=== PATIENT | male | born 1950 | race Caucasian/White ===

== ENCOUNTER → 2020-08-24 09:02 | Outpatient (CLI) | payer MEDICARE, SELFPAY ==
--- NOTE | ~2020-08-24 | CT_ITS ---
EXAMINATION: CT lumbar spine wo con, CT thoracic spine wo con EXAM DATE: 08/24/2020 09:22 (accession [id number]), 08/24/2020 09:23 (accession [id number]) INDICATION: Thoracic back pain. Low back pain. History lumbar surgery 5 times. Bladder and kidney can cer. TECHNIQUE: Spiral CT thoracic spine without contrast. Axial, coronal and sagittal images of the thora cic spine were reviewed. Spiral CT of the lumbar spine was performed without contrast. Axial, sherman nal and sagittal images lumbar spine were reviewed. The dose-length product (DLP) for this examinati on was 944.73 (accession [id number]), 1080.33 (accession [id number]) mGy-cm. The exposure w as tailored according to patient size (auto mA exposure control), and iterative reconstruction (ASIR) was used as additional dose reduction technique. There is no prior study for comparison. FINDINGS: There are no osteoblastic or osteolytic lesions identified. THORACIC SPINE: There are no bony erosions identified. Mild mid and lower thoracic disc disease. Sli ght loss of some mid and lower thoracic vertebral body heights. There are no acute fractures identifi ed. The vertebral bodies are aligned in the AP dimension. No evidence of thoracic central canal steno sis. Mild neural foraminal stenosis at several mid thoracic levels. Incidental small gastroesophageal hiatal hernia with larger amount of intra-abdominal fat also pushing through the hiatus. Evidence of mild interstitial lung disease. LUMBAR SPINE: There is posterior fusion L3-4, with partially fused vertebral bodies and laminectomies . Hardware intact and no lucency surrounding the screws. There is mild mid lumbar levoscoliosis. Mode rate to severe disc disease L2-3 and moderate at L4-5. There is 3 mm anterolisthesis L2 on L3. No spo ndylolysis. Paraspinal soft tissue is unremarkable. Sacrum, sacroiliac joints, sacral arcuate lines are intact. Mild sigmoid diverticulosis. Level by level evaluation: T12-L1: Disc does not extend beyond the endplate margin. Facet arthropathy: Mild. Neural foraminal stenosis: No stenosis. Central canal stenosis: No stenosis. L1-L2: There is a mild diffuse disc bulge. Facet arthropathy: Moderate. Neural foraminal stenosis: No stenosis. Central canal stenosis: No stenosis. L2-L3: There is a moderate diffuse disc bulge. Facet arthropathy: Moderate to severe. Neural foraminal stenosis: Moderate right, mild left. Central canal stenosis: Moderate. L3-L4: This level is fused. Facet arthropathy: Poorly visualized, probably fused. Neural foraminal stenosis: Mild to moderate right, mild left. Central canal stenosis: Posterior decompression. L4-L5: There is a moderate diffuse disc bulge. Facet arthropathy: Moderate. Neural foraminal stenosis: Moderate left, mild to moderate right. Central canal stenosis: Posterior decompression. L5-S1: There is a mild diffuse disc bulge. Facet arthropathy: Mild to moderate. Neural foraminal stenosis: No stenosis. Central canal stenosis: No stenosis. IMPRESSION: 1. L2-3 grade 1 anterolisthesis, advanced arthropathy, moderate central canal stenosis. 2. Mild thoracic spondylosis without significant stenosis. 3. Surgical changes L3-4. Reviewed, dictated and finalized at location A. IMPRESSION: 1. L2-3 grade 1 anterolisthesis, advanced arthropathy, moderate central canal stenosis. 2. Mild thoracic spondylosis without significant stenosis. 3. Surgical changes L3-4.
== END ==
PROVIDERS: Visit Provider Nurse Practitioner Adult Health
DX: M47.894 Other spondylosis, thoracic region (principal)
CPT/HCPCS: 72128; 72131

== ENCOUNTER 2022-05-10 18:35 | Inpatient (IN) | payer MEDICARE, SELFPAY ==
--- NOTE | ~2022-05-10 | XR_ITS ---
EXAMINATION: XR chest 1V portable Exam Date/Time: 05/10/2022 18:58 ASSEMBLED WOOD PRODUCTS REPAIRER HISTORY: cough, SOB, FEVER Comparison: None available. RESULT: Lines, tubes, and devices: Spinal catheters projecting over the midline thoracic spine. Lungs and pleura: Mid and lower lung reticulonodular opacities. Cardiomediastinal silhouette: Stable. Other: No acute osseous or upper abdominal finding. IMPRESSION: Pulmonary opacities may represent bronchiolitis, as can be seen with atypical infection, asthma, aspi ration, and small airways disease. Reviewed, dictated and finalized at location K. MBLED WOOD PRODUCTS REPAIRER IMPRESSION: Pulmonary opacities may represent bronchiolitis, as can be seen with atypical i nfection, asthma, aspiration, and small airways disease.
--- NOTE | ~2022-05-10 | CT_ITS ---
EXAMINATION: CT chest abdomen pelvis wo con DATE: 05/10/2022 19:59 INDICATION: chest pain radiating to back, abd pain, RLQ pain . TECHNIQUE: Computed tomography (CT) of the chest, abdomen, and pelvis was performed without intraveno us contrast. Automated exposure control and iterative reconstruction technique were employed. The dos e-length product was 2712.32 mGy-cm. COMPARISON: CT thoracic and lumbar spine 08/24/2020 FINDINGS: Thoracic aorta: No significant dilation. Moderate arch calcification. Lung parenchyma and airways: Emphysematous and senescent changes. Left lower lobe hamartoma. 4 mm rig ht middle lobe pulmonary nodule. Thoracic inlet, axillae and chest wall: Bilateral gynecomastia No thyroid mass. No axillary lymphaden opathy. Mediastinum: No mass or lymphadenopathy. Dilated central pulmonary arteries as can be seen with pulmo nary arterial hypertension. Small hiatal hernia and herniation of mesenteric fat at the diaphragmatic hiatus. Heart and pericardium: Normal heart size. No pericardial effusion. Coronary artery calcifications: Moderate. Pleura: No effusion or mass. Thoracic bones: No acute osseous finding in the chest. ABDOMEN/PELVIS: Liver: The right lobe is small, possibly related to postsurgical change. Biliary/Gallbladder: Gallbladder is minimally inflamed, likely reactive to the adjacent renal process . No bile duct dilation. Pancreas: Mild atrophy. Spleen: Normal. Adrenals: Left adrenal gland is surgically absent. Kidneys: Left kidney absent. Moderate right perinephric and periureteral stranding. Moderate right hy dronephrosis. Right ileal conduit. GI tract: No small or large bowel dilation. Right lower quadrant ileostomy. Right lower quadrant unco mplicated small bowel anastomosis Normal appendix. Mesentery/Peritoneum: No ascites, mass, or free air. Retroperitoneum: No mass. Atherosclerotic abdominal aortic and/or arterial calcifications. Pelvis: Urinary bladder and prostate are surgically absent. Soft Tissues: Small fat-containing bilateral inguinal hernias. Right lower back stimulator with leads enter the canal at T11-12 and terminating in the midthoracic canal. Abdominopelvic bones: No acute osseous finding in the abdomen/pelvis. Uncomplicated L3-4 posterior f usion IMPRESSION: 1. Pulmonary opacities in the prior radiograph related to senescent and emphysematous change. 2. Moderate right perinephric and periureteral stranding with moderate hydronephrosis, may reflect an astomotic stricture or ascending infection at the ileal conduit. 3. 4 mm right lower lobe pulmonary nodule, no follow-up recommended patient is at high risk in which case consider optional low-dose CT of the chest in 12 months. Reviewed, dictated and finalized at location K. ICATOR FOAM RUBBER IMPRESSION: 1. Pulmonary opacities in the prior radiograph related to senescent and emphyse matous change. 2. Moderate right perinephric and periureteral stranding with moderate hydronep hrosis, may reflect anastomotic stricture or ascending infection at the ileal c onduit. 3. 4 mm right lower lobe pulmonary nodule, no follow-up recommended patient is at high risk in which case consider optional low-dose CT of the chest in 12 mon ths.
--- NOTE | ~2022-05-10 | US_ITS ---
EXAMINATION: US renal BI DATE: 05/13/2022 13:55 INDICATION: Acute renal insufficiency TECHNIQUE: Multiple ultrasound grayscale images of the kidneys were obtained. COMPARISON: CT dated 05/10/2022 FINDINGS: The right kidney measures 12.6 x 7.0 x 5.7 cm. Status post left nephrectomy with shadowing bowel at t he left renal fossa. The right kidney demonstrates normal echogenicity. Unchanged mild right hydronep hrosis. No stones identified. Status post cystectomy with additional shadowing bowel expected region of the bladder. Diffuse hepatic steatosis. IMPRESSION: 1. Persistent mild right hydronephrosis. ON 2. Status post left nephrectomy and cystectomy. Reviewed, dictated and finalized at location A. NG MARKER
--- NOTE | ~2022-05-10 | XR_ITS ---
XR retrograde pyelogram RT DATE: 05/11/2022 14:08 INDICATION: Right lower quadrant abdominal pain TECHNIQUE: Multiple spot C-arm images were obtained during injection into ileal conduit 68.8 seconds fluoroscopy time 2.42 mGym2 COMPARISON: 05/10/2022 CT chest abdomen pelvis FINDINGS: Radiopaque contrast material images injected into the ileal conduit. No retrograde filling of the right ureter or right renal collecting system is noted. Status post posterior surgical spine fusion and laminectomy at L3-4. IMPRESSION: Ileal conduit Reviewed, dictated and finalized at Location A. Reviewed, dictated and finalized at location A. OR SCRUM MASTER IMPRESSION: Ileal conduit
--- NOTE | 2022-05-10 18:37 | ECG_ITS ---
Measurements Intervals [place] Rate: 132 P: -66 NM: 121 QRS: -54 QRSD: 149 T: 87 QT: 359 QTc: 532 Interpretive Statements SINUS OR ECTOPIC ATRIAL TACHYCARDIA LEFT AXIS DEVIATION LEFT BUNDLE BRANCH BLOCK ABNORMAL ECG NO PREVIOUS ECG AVAILABLE FOR COMPARISON Electronically Signed On 05-10-2022 20:10:32 CNC LASER OPERATOR by Guillermo Viramontes D.O.
[2022-05-10 18:44] VITALS: BP 132/100; PULSE 131; RESP 18; TEMP 38.8; O2SAT 90
[2022-05-10 18:49] VITALS: O2SAT 92
[2022-05-10 18:51] VITALS: O2SAT 94
[2022-05-10 19:14] LABS: Basophils Absolute Auto 0.1 K/mm3 (0.0-0.1); Basophils Percent Auto 0.3 % (0.2-1.2); Eosinophils Percent Auto 0.2 % (0-4.4); Hematocrit 39.1 % (42.0-52.0); Hemoglobin 13.4 g/dL (14.0-18.0); Immature Granulocyte Absolute 0.19 K/mm3 (0.00-0.031); Lymphocytes Absolute Auto 0.51 K/mm3 (0.9-3.2); Lymphocytes Percent Auto 2.6 % (18.3-44.2); Mean Corpuscular HGB Conc 34.3 g/dl (32-36); Mean Corpuscular Hemoglobin 30.6 pg (26-34); Mean Corpuscular Volume 89.3 fl (80-100); Mean Platelet Volume 10.1 fl (7.4-10.4); Monocytes Absolute Auto 0.6 K/mm3 (0.1-0.6); Monocytes Percent Auto 2.9 % (2.6-8.5); Neutrophils Absolute Auto 18.5 K/mm3 (1.3-6.7); Platelet Count Result 244 k/mm3 (150-375); Red Blood Count 4.38 M/mm3 (4.6-6.20); Red Cell Distribution Width 14.9 % (11.5-14.5); White Blood Count 19.9 K/mm3 (4.5-10.0)
--- NOTE | 2022-05-10 19:19 | ED.URI ---
HPI - URI/Sore Throat General Chief Complaint: Fever Stated Complaint: fever, sob, cough Time Seen by Provider: 05/10/22 19:08 History of Present Illness HPI Narrative: 2 d of cough, fevers, nausea, generalized fatigue; today started having burning sensation in chest and more shortness of breath so came in. Related Data Allergies Allergy/AdvReac Type Severity Reaction Status Date / Time Penicillins Allergy Mild Unknown Unverified 05/10/22 21:02 ERYTHROMYCINS Allergy Mild Unknown Uncoded 05/10/22 21:02 Review of Systems Review of Systems: CONST: Fever HEENT: congestion C/V: Chest burning RESP: Cough GI: Nausea, vomiting : No dysuria. M/S: Back pain SKIN: No rash. NEURO: [No focal numbness or weakness] PSYCH: [No depression] [facility] Past Medical History Medical History (Updated 05/10/22 @ 23:01 by Radha Ni MD) Bladder cancer Renal cancer Surgical History Surgical History (Updated 05/10/22 @ 20:38 by Radha Ni MD) History of bladder surgery History of nephrectomy Exam Narrative: EXAMINATION OF ORGAN SYSTEMS/BODY AREAS: Constitutional: Vital signs per nursing GENERAL: Appears tired and uncomfortable HEAD: Normal with no signs of head trauma. EYES: EOMI, conjunctiva normal ENT: Hearing grossly intact LUNGS: Nonlabored breathing. HEART: Tachycardic ABD: [Soft], [mildly tender to palpation diffusely] BACK: Right CVA tenderness EXT: Normal range of motion SKIN: [No rashes or lesions.] NEURO: [Alert and oriented x 3. No gross focal sensory or strength deficits.] PSYCH: Normal affect Course Vital Signs Vital signs: Vital Signs Temperature 102 F H 05/10/22 18:44 Pulse Rate 131 H 05/10/22 18:44 Respiratory Rate 18 05/10/22 18:44 Blood Pressure 132/100 H 05/10/22 18:44 Pulse Oximetry 90 05/10/22 18:44 Oxygen Delivery Room Air 05/10/22 18:44 Temperature 102 F H 05/10/22 18:44 Pulse Rate 131 H 05/10/22 18:44 Respiratory Rate 18 05/10/22 18:44 Blood Pressure 132/100 H 05/10/22 18:44 Pulse Oximetry 94 05/10/22 18:51 Oxygen Delivery Nasal Cannula 05/10/22 18:49 Oxygen Flow Rate 2 05/10/22 18:49 MDM - URI/Sore Throat MDM Narrative Medical decision making narrative: EMR reviewed however no prior records here; history obtained from patient and from his daughter at bedside. 71-year-old male presenting with 2 days of URI symptoms, today started have some chest discomfort and shortness of breath, and some right abd/back discomfort. No history of heart failure, does have history of kidney cancer now has 1 kidney. Vitals are notable for tachycardia, fever, hypoxia, on exam he does appear uncomfortable, with right CVA tenderness. I suspect possible URI versus UTI/pyelonephritis, versus other intra-abdominal etiology, pneumonia, ACS, less likely PE given the consolation of symptoms and no DVT symptoms. Infectious and cardiac work-up initiated, patient started on antibiotics, labs are notable for white count of 20, creatinine of 3.6 which per collateral his prior creatinine has been in the twos. UA with WBCs, bacteria, consistent with UTI. Chest x-ray reviewed by myself and my interpretation does show some patchy opacities bilaterally consistent with likely viral illness. EKG initially showing tachycardia rate 132, with left bundle branch block and left axis deviation, QTC prolonged at 532, however we have no prior EKGs here for comparison. Given the high white count, I did obtain a CT of his chest, abdomen, pelvis which showed findings consistent with pyelonephritis. After Tylenol and fluids, zofran and famotidine, he is now resting very comfortably, feeling much better, chest pain resolved, repeat EKG shows improvement to now sinus tachycardia. Discussed with the patient that we are can admit him given his new oxygen requirement, he is agreeable to this plan, case discussed with hospitalist Total crit care time 40 minutes. Lab Data 05/10/22 18:59
[2022-05-10 19:26] LABS: INR 1.2; Prothrombin Time 14.8 Seconds (11.1-14.7)
[2022-05-10 19:27] LABS: Partial Thromboplastin Time 32.4 SECONDS (22.3-36.8)
[2022-05-10 19:34] LABS: Alanine Aminotransferase 21 U/L (6-50); Albumin Level 3.9 g/dL (3.5-5.1); Alkaline Phosphatase 91 U/L (38-126); Anion Gap 12 mmol/L (8-16); Aspartate Amino Transferase 26 U/L (17-59); Bilirubin,Total 0.7 mg/dL (0.2-1.3); Blood Urea Nitrogen 57 mg/dL (9-20); Calcium 6.5 mg/dL (8.4-10.2); Carbon Dioxide 23 mmol/L (22-30); Chloride 100 mmol/L (98-107); Estimated Glomerular Filt Rate 17; Glucose 138 mg/dL (65-110); Lipase 37 U/L (23-300); Potassium 3.5 mmol/L (3.4-5.0); Sodium 135 mmol/L (137-145)
[2022-05-10] MEDS: ONDANSETRON INJ 4 MG/2 ML VIAL IV PUSH (19:38)
[2022-05-10] MEDS: FAMOTIDINE 20 MG/2 ML VIAL IV PUSH (19:38)
[2022-05-10] MEDS: LACTATED RINGERS 1,000 ML 999 ML IV CONT (19:40)
[2022-05-10 19:45] LABS: Troponin I < 0.012 ng/mL (0.000-0.034)
[2022-05-10 19:46] LABS: Troponin I < 0.012 ng/mL (0.000-0.034)
[2022-05-10 19:53] LABS: Influenza A QL RT-PCR Negative (Negative); Influenza B QL RT-PCR Negative (Negative); SARS-CoV-2 RNA PCR Negative
--- NOTE | 2022-05-10 20:02 | PM.IMHP ---
H&P: HPI History of Present Illness Date/Time: 05/10/22 20:02 Chief Complaint: Fever Narrative: This is a 71-year-old male with past medical history significant for dyslipidemia, gout, hypertension, chronic pain, restless leg syndrome, depression, obesity, history of bladder cancer, history of renal cancer. Patient presents to the emergency room due to shortness of breath, fatigue, body aches and pains, fever, generalized weakness, poor appetite. Patient tested negative for influenza type A, influenza type B and COVID-19. A urinalysis was significant for numerous WBCs present. Patient was found to have a creatinine of 3.6, BUN 57 Review of Systems Review of Systems: Body aches and pains, poor appetite, shortness of breath. Constitutional: Constitutional: Denies chills, Denies fever(s), Reports malaise, Denies night sweats, Reports poor appetite and Reports weakness Eyes: Eyes: Denies change in vision ENT: Denies dysphagia, Denies vertigo, Denies dizziness and Denies odynophagia Cardiovascular: Cardiovascular: Denies chest pain, Denies leg edema, Denies lightheadedness and Denies radiating jaw, neck or arm pain Respiratory: Respiratory: Reports cough and Reports dyspnea Gastrointestinal: Gastrointestinal: Denies abdominal pain, Denies dyspepsia, Denies heartburn, Denies diarrhea, Denies nausea and Denies vomiting Genitourinary: Genitourinary: Denies dysuria Musculoskeletal: Musculoskeletal: Reports myalgias, Denies joint swelling and Reports muscle weakness Integumentary/Breasts: Skin/Breast: Denies rash Neurologic: Denies vertigo, Denies dizziness, Denies focal weakness and Denies Sensory deficit (Neuro) Psychiatric: Psychiatric: Reports no additional psychiatric complaints and Reports as per HPI Endocrine: Endocrine: Denies cold intolerance, Denies flushing, Denies heat intolerance, Denies polyphagia, Denies polydipsia and Denies palpitations Hematologic/Lymphatic: Hematologic/Lymphatic: Reports no additional hematologic/lymphatic complaints and Reports as per HPI Allergic/Immunologic: Allergic/Immunologic: Reports no additional allergic/immunologic complaints and Reports as per HPI PMFSH Past Medical History Medical History (Updated 05/11/22 @ 05:31 by Renaldo Cortes MD) Bladder cancer Renal cancer Surgical History Surgical History (Updated 05/10/22 @ 20:38 by Radha Ni MD) History of bladder surgery History of nephrectomy Social History Social History Smoking status: Former smoker Alcohol intake: never Substance use: never Lack of Transportation: No Lack of Food: Never True Current Housing: I Have Housing Concerned About Future Housing: No Difficulty Paying Gas/Electric Bills: No Difficulty Paying for Meds: No Currently Unemployed: No Education: High School Diploma/GED Difficulty w/ Childcare or Family Care: No Spiritual care concerns: No Meds Home Medications and Allergies Home Medications Medication Instructions Recorded Confirmed Type Cranberry Plus Vitamin C 450 mg PO DAILY 05/11/22 05/11/22 History allopurinol 100 mg tablet 200 mg PO DAILY 05/11/22 05/11/22 History amlodipine 5 mg tablet 5 mg PO DAILY 05/11/22 05/11/22 History aspirin 81 mg capsule 81 mg PO DAILY 05/11/22 05/11/22 History atorvastatin 10 mg tablet 10 mg PO DAILY 05/11/22 05/11/22 History calcitriol 0.25 mcg capsule 0.25 mcg PO DAILY 05/11/22 05/11/22 History calcium citrate 200 mg 1 tablet PO DAILY 05/11/22 05/11/22 History calcium-vitamin D3 6.25 mcg (250 unit) tablet (Citracal-D3 Petites) cholecalciferol (vitamin D3) 50 50 mcg PO DAILY 05/11/22 05/11/22 History mcg (2,000 unit) capsule (Vitamin D3) fexofenadine 180 mg tablet 180 mg PO DAILY 05/11/22 05/11/22 History oxycodone 5 mg tablet 5 mg PO BID 05/11/22 05/11/22 History oxycodone myristate 13.5 mg 13.5 mg PO BID 05/11/22 05/11/22 History capsule sprinkle extend release 12hr(DON'T CRUSH) (Xtampza ER)
[2022-05-10] MEDS: cefTRIAXone 2 GM in SODIUM CHLORIDE 0.9% IV 100 ML 200 ML IVPB (20:34)
[2022-05-10 20:51] LABS: Appearance Urine Cloudy (Clear); Bilirubin Urine Negative (Negative); Blood Urine 2+ (Negative); Color Urine Yellow (Yellow); Glucose Urine UA Negative (Negative); Ketones Urine Negative (Negative); Leukocyte Esterase Ur 3+ LEU/UL (Negative); Nitrate Urine Negative (Negative); Protein Urine 1+ mg/dL (Negative); Specific Grav Ur 1.015 (1.001-1.035); Urobilinogen Urine 0.2 mg/dL (<2.0); pH Urine 6.5 (5.0-9.0)
[2022-05-10] MEDS: DOXYCYCLINE 100 MG/NS 100 ML 100 MG/100 ML BAG IVPB (21:04)
--- NOTE | 2022-05-10 21:11 | ECG_ITS ---
Measurements Intervals [place] Rate: 83 P: 87 MT: 208 QRS: -29 QRSD: 160 T: 93 QT: 414 QTc: 487 Interpretive Statements SINUS RHYTHM LEFT BUNDLE BRANCH BLOCK BASELINE ARTIFACT- I, II, III, AVR, AVL, AVF, V1-V2, V5 ABNORMAL ECG COMPARED TO ECG 05/10/2022 18:42:00 SINUS RHYTHM NOW PRESENT Electronically Signed On 05-11-2022 6:43:29 PROJECT MANAGEMENT SPECIALIST by Guillermo Viramontes D.O.
[2022-05-10 21:14] LABS: Add Urine Microscopic? YES
[2022-05-10 21:17] LABS: Bacteria Urine 3+ /hpf; Mucus Urine Rare /lpf; WBC Clumps Urine Present /HPF; WBC Urine >75 /hpf
[2022-05-10 22:00] LABS: NT Pro B Type Natriuretic Pept 500 pg/mL (19.9-100)
[2022-05-10 22:40] VITALS: BP 106/52; PULSE 71; RESP 18; TEMP 35.9; O2SAT 97
--- NOTE | 2022-05-10 23:00 | ADMGEN ---
This patient, Colt Hoff, was admitted to 3 [facility] Surg Room 331-01. Patient/family oriented to hospital policies and general routines including ID bracelet, bed and alarms, visiting hours, pain management, procedures, bathroom and other care routines, personal items, smoking policy, room service/diet, and visiting hours. Information on how to activate the Rapid Response Team has been discussed. Patient/Family are encouraged to report perceived risks to care and to ask questions if they do not understand what they are told or what they should do.
[2022-05-11] VITALS (26 sets, daily range): BP systolic 107–131; BP diastolic 43–62; PULSE 54–83; RESP 12–20; TEMP 35.7–36.7; O2SAT 90–99; BMI 44.3
--- NOTE | 2022-05-11 | ECHO_ITS ---
Patient Info Name: Colt Hoff Age: 71 years : 1950 Gender: Male Ht: 72 in Wt: 326 lbs BSA: 2.81 m2 HR: 61 bpm BP: 121 / 60 mmHg Technical Quality: Fair Exam Date: 05/11/2022 8:42 AM Exam Location: [facility] Patient Status: Inpatient Admit Date: 05/10/2022 Staff Ordering Physician: Renaldo Cortes MD Line Crew Supervisor: Lan Funes, JENNIE, RT Attending Provider: Renaldo Cortes MD Referring Physician: Sophia MAK; Exam Type: CA echo dop color flow w con Study Info Indications I10 - Essential (primary) hypertension I50.9 - Heart failure, unspecified Complete two-dimensional, color flow and Doppler transthoracic echocardiogram is performed with contrast to opacify the left ventricle and to improve the deliniation of the left ventricle endocardial borders. Strain analysis performed. Summary 1. Left ventricular chamber dimension is normal. 2. Definity contrast administered improved wall motion interpretation. 3. Left ventricular systolic function is normal, estimated at 65-70%. 4. There is moderately increased left ventricular wall thickness. 5. The left ventricular diastolic function is abnormal. 6. E/e' 11 is mildly elevated. 7. Global longitudinal strain is normal at -18.2%. Left Ventricle Definity contrast administered improved wall motion interpretation. E/e' 11 is mildly elevated. Left ventricular chamber dimension is normal. Left ventricular systolic function is normal, estimated at 65-70%. There is moderately increased left ventricular wall thickness. The left ventricular diastolic function is abnormal. Global longitudinal strain is normal at -18.2%. Right Ventricle Right ventricular systolic function is normal and with normal TAPSE 2.8 cm. Right ventricular chamber dimension is normal. Left Atria Left atrial chamber dimension is normal. Right Atria Right atrial chamber dimension is normal. Aortic Valve The aortic valve is trileaflet. There is no aortic valve stenosis. There is no aortic valve regurgitation. Pulmonic Valve There is no pulmonic regurgitation. Mitral Valve There is no mitral valve stenosis. There is no mitral valve regurgitation. Tricuspid Valve There is no tricuspid valve regurgitation. Pericardium/Pleural There is no pericardial effusion. Inferior Vena Cava Normal inferior vena cava with >50% collapse upon inspiration consistent with normal right atrial pressure, 5 mmHg. Aorta The aortic root size at the sinus of Valsalva is normal. Left Ventricular Outflow Tract Name Value Normal LVOT 2D LVOT Diameter 2.31 cm LVOT Doppler LVOT Peak Gradient 5 mmHg LVOT Mean Gradient 3 mmHg LVOT VTI 26.77 cm LVOT VTI/AV VTI Ratio 0.83 LVOT Stroke Volume 112.08 ml LVOT CO 7.29 l/min LVOT CI 2.60 L/min/m2 Mitral Valve Name [place]
[2022-05-11 01:47] LABS: Creatine Kinase 154 U/L (55-170)
[2022-05-11 01:55] LABS: Troponin I 0.119 ng/mL (0.000-0.034)
--- NOTE | 2022-05-11 02:00 | ECG_ITS ---
Measurements Intervals [place] Rate: 61 P: -14 VA: 188 QRS: -32 QRSD: 114 T: 27 QT: 489 QTc: 494 Interpretive Statements SINUS RHYTHM LEFT AXIS DEVIATION INTRAVENTRICULAR CONDUCTION DELAY T WAVE ABNORMALITY IN ANTERIOR LEADS- CONSIDER ISCHEMIA BASELINE ARTIFACT- II, III ABNORMAL ECG COMPARED TO ECG 05/10/2022 21:18:19 LEFT-AXIS DEVIATION NOW PRESENT Electronically Signed On 05-11-2022 6:52:53 LEGAL ARBITRATOR by Guillermo Viramontes D.O.
[2022-05-11] MEDS: IPRATROPIUM BR 0.02% INH SOLN 0.5 MG/2.5 ML VIAL INHALATION ×4 (04:49→21:55)
[2022-05-11] MEDS: ALBUTEROL SULFATE NEB 2.5 MG/3 ML INH INHALATION ×4 (04:49→21:55)
[2022-05-11 05:16] LABS: Basophils Absolute Auto 0.1 K/mm3 (0.0-0.1); Basophils Percent Auto 0.3 % (0.2-1.2); Eosinophils Absolute Auto 0.1 K/mm3 (0-0.3); Eosinophils Percent Auto 0.6 % (0-4.4); Hematocrit 36.7 % (42.0-52.0); Hemoglobin 12.3 g/dL (14.0-18.0); Immature Granulocyte Absolute 0.16 K/mm3 (0.00-0.031); Immature Granulocyte Percent A 0.8 % (0-0.5); Lymphocytes Absolute Auto 1.36 K/mm3 (0.9-3.2); Lymphocytes Percent Auto 6.9 % (18.3-44.2); Mean Corpuscular HGB Conc 33.5 g/dl (32-36); Mean Corpuscular Hemoglobin 29.9 pg (26-34); Mean Corpuscular Volume 89.3 fl (80-100); Mean Platelet Volume 9.9 fl (7.4-10.4); Monocytes Absolute Auto 1.5 K/mm3 (0.1-0.6); Monocytes Percent Auto 7.7 % (2.6-8.5); Neutrophils Absolute Auto 16.5 K/mm3 (1.3-6.7); Neutrophils Percent Auto 83.7 % (45.5-73.1); Platelet Count Result 214 k/mm3 (150-375); Red Blood Count 4.11 M/mm3 (4.6-6.20); Red Cell Distribution Width 15.1 % (11.5-14.5); White Blood Count 19.7 K/mm3 (4.5-10.0)
[2022-05-11 05:29] LABS: Anion Gap 8 mmol/L (8-16); Blood Urea Nitrogen 57 mg/dL (9-20); Calcium 6.3 mg/dL (8.4-10.2); Carbon Dioxide 26 mmol/L (22-30); Chloride 99 mmol/L (98-107); Estimated CRCL calculation 25 ml/min; Estimated Glomerular Filt Rate 15; Glucose 114 mg/dL (65-110); Potassium 3.5 mmol/L (3.4-5.0); Sodium 133 mmol/L (137-145)
[2022-05-11] MEDS: oxyCODONE HCL (*CRX) 5 MG TAB IR PO ×3 (05:31→20:37)
[2022-05-11 05:44] LABS: Troponin I 0.089 ng/mL (0.000-0.034)
[2022-05-11 08:43] LABS: Troponin I 0.066 ng/mL (0.000-0.034)
[2022-05-11] MEDS: PERFLUTREN LIPID MICROSPHERES 1.5 ML VIAL DILUTED TO 10 ML TOTAL VOLUME IV PUSH (08:57)
--- NOTE | 2022-05-11 08:57 | IVDEFINITY ---
Prior to administration of IV Definity the patient was educated on the risks and benefits of the imaging enhancing agent including potential adverse side effects. The patient verbalized understanding. Allergies were verified. No exclusion criteria were identified and at least one of the following inclusion criteria were met: 1) physician request, 2) patient technically difficult to image (per the [place] [employer] guidelines of two or more segments not discernable within the apical view), or 3) questionable left ventricular function. ?
--- NOTE | 2022-05-11 10:20 | PM.IMPN ---
Progress Note: A&P Assessment and Plan (1) Acute UTI: Code(s): N39.0 - Urinary tract infection, site not specified Status: Acute Assessment and Plan: Abnormal urinalysis concerning for UTI Patient started on doxycycline due to penicillin allergy, will discontinue doxycycline in favor of Cipro (2) CAROLYNE (acute kidney injury): Code(s): N17.9 - Acute kidney failure, unspecified Status: Acute Assessment and Plan: Worsening, appreciate nephrology consultation Renal ultrasound pending, hold nephrotoxic agents Concern for postobstructive uropathy noted on CT pelvis, will consult Urology (3) Elevated troponin: Code(s): R77.8 - Other specified abnormalities of plasma proteins Status: Acute Assessment and Plan: EKG with no acute changes Trend troponins Echocardiogram pending Cardiology consult (4) Morbid obesity with BMI of 45.0-49.9, adult: Code(s): E66.01 - Morbid (severe) obesity due to excess calories; Z68.42 - Body mass index [BMI] 45.0-49.9, adult Status: Acute Assessment and Plan: Lifestyle and diet modifications Plan DVT prophylaxis with heparin GI prophylaxis not indicated Code status full code Subjective Date/time seen: 05/11/22 10:20 Interval history: No overnight events noted. No chest pain or shortness of breath. No nausea, vomiting or diarrhea. No fevers or chills. Review of Systems Review of Systems: 12 point review of systems was assessed and was negative except as noted in the HPI Exam Narrative: General: No acute distress, alert and oriented per baseline HEENT: Atraumatic, normocephalic, mucous membranes moist CV: Regular rate and rhythm, S1, S2 Lungs: Clear to auscultation bilaterally, no rales or crackles noted, no wheezes, good air entry Abdomen: Soft, nontender, nondistended Extremities: Normal to inspection Skin: No rashes noted, no lesions or wounds seen Psych: Euthymic, normal affect Objective Data Vital Signs Vital Signs: Vital Signs - 24 hr 05/10/22 18:44 05/10/22 18:49 05/10/22 18:51 Temperature 102 F H Pulse Rate 131 H Respiratory Rate 18 Blood Pressure 132/100 H Pulse Oximetry 90 92 94 Oxygen Delivery Room Air Nasal Cannula Oxygen Flow Rate 2 05/11/22 01:31 05/10/22 22:40 05/11/22 03:45 Temperature 96.7 F L 98.0 F Pulse Rate 71 61 Respiratory Rate 18 18 Blood Pressure 106/52 L 123/62 Pulse Oximetry 90 97 93 Oxygen Delivery Room Air Oxygen Flow Rate 05/11/22 04:00 05/11/22 04:00 05/11/22 04:40 Temperature Pulse Rate 63 63 57 L Respiratory Rate Blood Pressure Pulse Oximetry 90 Oxygen Delivery Room Air Oxygen Flow Rate 05/11/22 04:40 05/11/22 04:54 05/11/22 04:54 Temperature Pulse Rate 57 L 55 L Respiratory Rate 16 16 Blood Pressure Pulse Oximetry 90 Oxygen Delivery Oxygen Flow Rate 05/11/22 06:00 05/11/22 08:27 05/11/22 08:27 Temperature Pulse Rate 60 56 L Respiratory Rate 16 Blood Pressure Pulse Oximetry 91 Oxygen Delivery Room Air Oxygen Flow Rate 05/11/22 08:00 05/11/22 08:37 Temperature 97.6 F Pulse Rate 56 L 54 L Respiratory Rate 18 16 Blood Pressure 107/53 L Pulse Oximetry 93 Oxygen Delivery Oxygen Flow Rate Intake/Output Intake/Output: Intake & Output 05/08/22 05/09/22 05/10/22 05/11/22 23:59 23:59 23:59 23:59 Intake Total 1300 Balance 1300 Meds/Results Medications: Active Medications Generic Name Dose Route Start Last Admin Trade Name Freq PRN Reason Stop Dose Admin Albuterol 2.5 mg 05/11/22 04:00 05/11/22 08:26 Albuterol Sulfate Neb 2.5 Mg/3 Ml Inh INHALATION 2.5 mg Q4HRT [facility] Administration Allopurinol 200 mg 05/11/22 08:00 Allopurinol 100 Mg Tablet PO DAILY@0800 [facility] Amlodipine Besylate 5 mg 05/11/22 09:00 Amlodipine Besylate 5 Mg Tablet PO DAILY [facility] Aspirin 81 mg 05/11/22 08:00 Aspirin 81 Mg C
[2022-05-11] MEDS: PREGABALIN (*CRX) 75 MG CAPSULE 150 MG PO ×2 (10:53→16:47)
[2022-05-11] MEDS: LORATADINE 10 MG TABLET PO (10:53)
[2022-05-11] MEDS: ASPIRIN 81 MG CHEWABLE TABLET PO (10:56)
[2022-05-11] MEDS: allopurinoL 100 MG TABLET 200 MG PO (10:56)
[2022-05-11] MEDS: amLODIPine BESYLATE 5 MG TABLET PO (10:57)
[2022-05-11] MEDS: HEPARIN SODIUM 5,000 UNITS/ML VIAL 5000 UNITS SUB-Q (10:58)
[2022-05-11] MEDS: SERTRALINE HCL 50 MG TABLET 100 MG PO (10:58)
[2022-05-11] MEDS: CIPROFLOXACIN 400 MG/D5W 200ML 200 ML 200 MG IVPB ×2 (10:58→20:36)
[2022-05-11 11:45] LABS: Troponin I 0.047 ng/mL (0.000-0.034)
--- NOTE | 2022-05-11 12:59 | WPDURCON ---
Assessment and Plan Assessment and plan (1) Morbid obesity with BMI of 45.0-49.9, adult: Code(s): E66.01 - Morbid (severe) obesity due to excess calories; Z68.42 - Body mass index [BMI] 45.0-49.9, adult Status: Acute (2) Acute pyelonephritis: Code(s): N10 - Acute pyelonephritis Status: Acute (3) History of bladder cancer: Code(s): Z85.51 - Personal history of malignant neoplasm of bladder Status: Acute (4) Solitary right kidney: Status: Acute Assessment and Plan: Patient with history of left nephrectomy and cystectomy with ileal conduit urinary diversion approximately 6-7 years ago at an outside hospital Presents with evidence of febrile urinary tract infection. CT imaging demonstrates right hydronephrosis which may be obstructive in nature (CT completely exclude ureteral ileal reflux ) Given fact that he is serum leukocytosis in acute kidney injury have not improved much overnight with supportive care I presume he has obstruction of his right ureter. I will attempt a right ureteral stent placement and, if I am unsuccessful, consider placement of a right percutaneous nephrostomy tube Urology Consult Note HPI Date Seen: 05/11/22 Requesting Physician: Renaldo Cortes MD Primary Care Provider: PHYSICIAN NOT ON STAFF Consult Narrative Narrative: Colt Hoff is a 71 year old male, previously unknown to our practice, with a long significant urological history. 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 This surgery was performed at [facility] by Dr. Amilcar Aaron. he was admitted here for the 1st time last night with generalized malaise aches in low-grade fever. Evaluation is suggestive of a urinary tract infection. Imaging shows right hydronephrosis that could either represent upper tract obstruction or reflux. His says his baseline serum creatinine typically runs about 1.9-2.0. Review of Systems Cardiovascular: Cardiovascular: Denies chest pain, Denies lightheadedness, Denies palpitations and Denies dyspnea Respiratory: Respiratory: Denies dyspnea Gastrointestinal: Gastrointestinal: Denies diarrhea, Denies nausea and Denies vomiting Genitourinary: Genitourinary: Denies hematuria and Denies dysuria Endocrine: Endocrine: Denies palpitations [facility] Past Medical History Medical History (Updated 05/11/22 @ 13:07 by Chance Vences MD) Bladder cancer Renal cancer Surgical History Surgical History (Updated 05/10/22 @ 20:38 by Radha Ni MD) History of bladder surgery History of nephrectomy Social History Social History Smoking status: Former smoker Alcohol intake: never Substance use: never Lack of Transportation: No Lack of Food: Never True Current Housing: I Have Housing Concerned About Future Housing: No Difficulty Paying Gas/Electric Bills: No Difficulty Paying for Meds: No Currently Unemployed: No Education: High School Diploma/GED Difficulty w/ Childcare or Family Care: No Spiritual care concerns: No Meds Home Medications and Allergies Home Medications Medication Instructions Recorded Confirmed Type Cranberry Plus Vitamin C 450 mg PO DAILY 05/11/22 05/11/22 History allopurinol 100 mg tablet 200 mg PO DAILY 05/11/22 05/11/22 History amlodipine 5 mg tablet 5 mg PO DAILY 05/11/22 05/11/22 History aspirin 81 mg capsule 81 mg PO DAILY 05/11/22 05/11/22 History atorvastatin 10 mg tablet 10 mg PO DAILY 05/11/22 05/11/22 History calcitriol 0.25 mcg capsule 0.25 mcg PO DAILY 05/11/22 05/11/22 History calcium citrate 200 mg 1 tablet PO DAILY 05/11/22 05/11/22 History calcium-vitamin D3 6.25 mcg (250 unit) tablet (Citracal-D3 Petites) cholecalciferol (vitamin D3) 50 50 mcg PO DAILY 05/11/22 05/11/22 History mcg (2,000 unit) capsule (Vitamin D3) fexofenadine 1
--- NOTE | 2022-05-11 13:08 | WPDANESEPPF ---
Anes - Initial Pre Proc Eval Procedure: Operation Date: 05/11/22 13:00 Proposed Procedures p Looposcopy with Right Stent Placement - Chance Vences MD Date/Time: 05/11/22 13:08 Surgeon: Renaldo Cortes MD Pre Op Diagnosis: Hypoxic/PNA Patient Data Age: 71 Gender: M Height: 1.83 m Weight: 148 kg Last Vital Signs Temp 35.7 C L 05/11/22 12:00 Pulse 61 05/11/22 12:53 Resp 16 05/11/22 12:53 BP 117/48 L 05/11/22 12:00 Pulse Ox 94 05/11/22 12:00 O2 Del Method Room Air 05/11/22 08:27 O2 Flow Rate 2 05/10/22 18:49 Allergies Allergy/AdvReac Type Severity Reaction Status Date / Time Penicillins Allergy Mild Unknown Verified 05/11/22 01:21 ERYTHROMYCINS Allergy Mild Unknown Uncoded 05/11/22 01:21 Home Medications Medication Instructions Recorded Confirmed Type Cranberry Plus Vitamin C 450 mg PO DAILY 05/11/22 05/11/22 History allopurinol 100 mg tablet 200 mg PO DAILY 05/11/22 05/11/22 History amlodipine 5 mg tablet 5 mg PO DAILY 05/11/22 05/11/22 History aspirin 81 mg capsule 81 mg PO DAILY 05/11/22 05/11/22 History atorvastatin 10 mg tablet 10 mg PO DAILY 05/11/22 05/11/22 History calcitriol 0.25 mcg capsule 0.25 mcg PO DAILY 05/11/22 05/11/22 History calcium citrate 200 mg 1 tablet PO DAILY 05/11/22 05/11/22 History calcium-vitamin D3 6.25 mcg (250 unit) tablet (Citracal-D3 Petites) cholecalciferol (vitamin D3) 50 50 mcg PO DAILY 05/11/22 05/11/22 History mcg (2,000 unit) capsule (Vitamin D3) fexofenadine 180 mg tablet 180 mg PO DAILY 05/11/22 05/11/22 History oxycodone 5 mg tablet 5 mg PO BID 05/11/22 05/11/22 History oxycodone myristate 13.5 mg 13.5 mg PO BID 05/11/22 05/11/22 History capsule sprinkle extend release 12hr(DON'T CRUSH) (Xtampza ER) pregabalin 150 mg capsule 150 mg PO TID 05/11/22 05/11/22 History ropinirole 2 mg tablet 2 mg PO HS 05/11/22 05/11/22 History sertraline 100 mg tablet 100 mg PO DAILY 05/11/22 05/11/22 History torsemide 20 mg tablet 20 mg PO DAILY 05/11/22 05/11/22 History trazodone 100 mg tablet 100 mg PO HS 05/11/22 05/11/22 History Laboratory Tests 05/10/22 05/10/22 05/10/22 18:59 18:59 18:59 WBC 19.9 K/mm3 H K/mm3 (4.5-10.0) RBC 4.38 M/mm3 L M/mm3 (4.6-6.20) Hgb 13.4 g/dL L g/dL (14.0-18.0) Hct 39.1 % L % (42.0-52.0) MCV 89.3 fl fl (80-100) MCH 30.6 pg pg (26-34) MCHC 34.3 g/dl g/dl (32-36) RDW 14.9 % H % (11.5-14.5) Plt Count 244 k/mm3 k/mm3 (150-375) MPV 10.1 fl fl (7.4-10.4) Immature Gran % (Auto) 1.0 % H % (0-0.5) Neut % (Auto) 93.0 % H % (45.5-73.1) Lymph % (Auto) 2.6 % L % (18.3-44.2) Petroleum % (Auto) 2.9 % % (2.6-8.5) Eos % (Auto) 0.2 % % (0-4.4) Baso % (Auto) 0.3 % % (0.2-1.2) Lymph # (Auto) 0.51 K/mm3 L K/mm3 (0.9-3.2) Petroleum # (Auto) 0.6 K/mm3 K/mm3 (0.1-0.6) Eos # (Auto) 0.0 K/mm3 K/mm3 (0-0.3) Baso # (Auto) 0.1 K/mm3 K/mm3 (0.0-0.1) Abs Immat Gran (auto) 0.19 K/mm3 H K/mm3 (0.00-0.031) Absolute Neuts (auto) 18.5 K/mm3 H K/mm3 (1.3-6.7) Absolute Nucleated RBC 0.0 K/mm3 K/mm3 (0.0-0.012) Nucleated RBC % 0.0 % % (0.0-0.2) PT 14.8 Seconds H Seconds (11.1-14.7) INR 1.2 APTT 32.4 SECONDS SECONDS (22.3-36.8) Sodium 135 mmol/L L mmol/L (137-145) Potassium 3.5 mmol/L mmol/L (3.4-5.0) Chloride 100 mmol/L mmol/L (98-107) Carbon Dioxide 23 mmol/L mmol/L (22-30) Anion Gap 12 mmol/L mmol/L (8-16) BUN 57 mg/dL H mg/dL (9-20) Creatinine 3.60 mg/dL H mg/dL (0.7-1.3) Estim Creat Clear Calc Not Reportable Estimated GFR 17 L (59 - ) Glucose 138 mg/dL H mg/dL (65-110) Calcium 6.5 mg/dL L mg/dL
--- NOTE | 2022-05-11 13:09 | WPDHPUPDATE1 ---
History and Physical Update Update Date/Time: 05/11/22 13:09 History and Physical has been reviewed, including an updated exam of the patient. There are NO changes in the patient's condition. Risks, benefits, and alternatives have been discussed and questions answered. Patient agrees to proceed with procedure.
[2022-05-11] MEDS: LACTATED RINGERS 1,000 ML 30 ML IV CONT (13:16)
--- NOTE | 2022-05-11 14:58 | W.PM.PROC2 ---
Procedure Note - Detailed Date of Procedure 05/11/22 Pre-op Diagnosis Right hydronephrosis Post-op Diagnosis Same Procedure Performed Ileal looposcopy, loopogram and attempted (unsuccessful) right ureteral stent placement Surgeon Chance Vences MD Anesthesia General Description of Procedure Patient is brought to the operative suite where he is prepped draped in routine sterile fashion while in a supine position and after the uneventful induction of general anesthesia per the anesthesia department. Ileal loop os copy was undertaken with a 16 F flexible cystoscope. I did this carefully to avoid any injury to the ileal conduit. He has a long somewhat tortuous conduit. I thoroughly inspected did over and over and was unable to identify by, clearly, a right ureteral orifice. There was 1 area that was suspicious for possible ureteral orifice but I was unable to advance a guidewire. After a significant period of time I aborted this procedure. I did perform a loopogram through a 16 F Hussein catheter in saw no evidence of ureteral ileal reflux. This point I think we will watch him overnight. If there is no significant improvement in his leukocytosis renal function overnight I have spoken with the radiologist about placing a right percutaneous nephrostomy tube. I will hold the sub-Q heparin and placed Jose hose and SCDs. Drains No Packing No Pathology None sent Complications No immediate complications
--- NOTE | 2022-05-11 17:32 | ECG_ITS ---
Measurements Intervals [place] Rate: 77 P: 38 FL: 182 QRS: -32 QRSD: 102 T: 55 QT: 434 QTc: 491 Interpretive Statements SINUS RHYTHM LEFT AXIS DEVIATION DELAYED PRECORDIAL R/S TRANSITION T WAVE ABNORMALITY IN ANTERIOR LEADS- CONSIDER ISCHEMIA ABNORMAL ECG COMPARED TO ECG 05/11/2022 02:13:42 NO SIGNIFICANT CHANGES Electronically Signed On 05-11-2022 18:26:01 ELECTRIC WIRER by Guillermo Viramontes D.O.
--- NOTE | 2022-05-11 19:55 | PC.NURSE ---
Vtach 8 beats noted at 190, and 5 beats at 190. SUNNI Trammell notified. Awaiting new orders. Will continue to monitor closely.
[2022-05-11 20:00] LABS: Anion Gap 14 mmol/L (8-16); Blood Urea Nitrogen 55 mg/dL (9-20); Calcium 6.2 mg/dL (8.4-10.2); Carbon Dioxide 22 mmol/L (22-30); Chloride 101 mmol/L (98-107); Estimated CRCL calculation 28 ml/min; Estimated Glomerular Filt Rate 18; Glucose 207 mg/dL (65-110); Potassium 3.8 mmol/L (3.4-5.0); Sodium 137 mmol/L (137-145)
--- NOTE | 2022-05-11 20:10 | ECG_ITS ---
Measurements Intervals [place] Rate: 75 P: 60 FL: 168 QRS: -35 QRSD: 108 T: 44 QT: 456 QTc: 510 Interpretive Statements SINUS RHYTHM MISSING LEAD V4 LEFT AXIS DEVIATION T WAVE ABNORMALITY IN ANTERIOR LEADS- CONSIDER ISCHEMIA BASELINE ARTIFACT- II, III, AVF ABNORMAL ECG COMPARED TO ECG 05/11/2022 17:38:07 NO SIGNIFICANT CHANGES Electronically Signed On 05-12-2022 8:06:50 LITIGATION SUPPORT ANALYST by Guillermo Viramontes D.O.
[2022-05-11] MEDS: traZODone HCL 50 MG TABLET 100 MG PO (20:39)
[2022-05-11] MEDS: rOPINIRole HCL 1 MG TABLET 2 MG PO (20:40)
[2022-05-12] VITALS (20 sets, daily range): BP systolic 109–119; BP diastolic 47–60; PULSE 70–86; RESP 16–20; TEMP 36.1–36.4; O2SAT 90–96
[2022-05-12] MEDS: IPRATROPIUM BR 0.02% INH SOLN 0.5 MG/2.5 ML VIAL INHALATION ×6 (00:52→20:40)
[2022-05-12] MEDS: ALBUTEROL SULFATE NEB 2.5 MG/3 ML INH INHALATION ×6 (00:52→20:39)
[2022-05-12] MEDS: oxyCODONE HCL (*CRX) 5 MG TAB IR PO ×3 (05:30→12:21)
[2022-05-12 05:36] LABS: Hematocrit 37.8 % (42.0-52.0); Hemoglobin 12.5 g/dL (14.0-18.0); Mean Corpuscular HGB Conc 33.1 g/dl (32-36); Mean Corpuscular Hemoglobin 30.9 pg (26-34); Mean Corpuscular Volume 93.3 fl (80-100); Mean Platelet Volume 9.9 fl (7.4-10.4); Platelet Count Result 218 k/mm3 (150-375); Red Blood Count 4.05 M/mm3 (4.6-6.20); Red Cell Distribution Width 15.3 % (11.5-14.5); White Blood Count 14.6 K/mm3 (4.5-10.0)
[2022-05-12 05:46] LABS: Anion Gap 12 mmol/L (8-16); Blood Urea Nitrogen 53 mg/dL (9-20); Calcium 6.5 mg/dL (8.4-10.2); Carbon Dioxide 24 mmol/L (22-30); Chloride 100 mmol/L (98-107); Estimated CRCL calculation 31 ml/min; Estimated Glomerular Filt Rate 20; Glucose 171 mg/dL (65-110); Potassium 3.6 mmol/L (3.4-5.0); Sodium 136 mmol/L (137-145)
[2022-05-12 05:53] LABS: INR 1.3; Partial Thromboplastin Time 37.3 SECONDS (22.3-36.8); Prothrombin Time 15.8 Seconds (11.1-14.7)
--- NOTE | 2022-05-12 08:07 | WPDUROPN2 ---
Progress Note: A&P Assessment and Plan (1) Solitary right kidney: Status: Acute (2) History of bladder cancer: Code(s): Z85.51 - Personal history of malignant neoplasm of bladder Status: Acute (3) Acute pyelonephritis: Code(s): N10 - Acute pyelonephritis Status: Acute (4) CAROLYNE (acute kidney injury): Code(s): N17.9 - Acute kidney failure, unspecified Status: Acute Assessment and Plan: Renal function and leukocytosis slightly improved overnight. Although I do feel his right ureter is likely partially obstructed (which could be cause for recurrent infections) given that he's slowly improving, has good urine output per ileostomy I'm leaning against putting in right nephrostomy tube -> especially since he's been taking ASA through yesterday and has slightly abnromal PT/PTT. At this point I think risks outweight benefits. I'd suggest treating infection with renal dose abx. once urine culture available. As outpatient we can follow his serum creat. and evaluate further for obstructive uropathy. Ultimately, at some point, he likely will need nephrostomy tube with antegrade stent and ureteroscopy to evaluate his right ureter -> can either do here or with his urologist in [place] (Dr. Amilcar Aaron). Subjective Subjective Date/Time Seen: 05/12/22 08:07 Comfortable, no complaints Review of Systems Cardiovascular: Cardiovascular: Denies chest pain, Denies lightheadedness, Denies palpitations and Denies dyspnea Respiratory: Respiratory: Denies dyspnea Gastrointestinal: Gastrointestinal: Denies diarrhea, Denies nausea and Denies vomiting Genitourinary: Genitourinary: Denies hematuria and Denies dysuria Endocrine: Endocrine: Denies palpitations Exam Const: General: no acute distress Resp: Effort & Inspection: normal respiratory effort GI: Inspection: non-distended GI Palp: No abdominal tenderness and No Guarding due to palpation present (GI) Auscultation: normal bowel sounds Objective Data Vital Signs Vital Signs: Vital Signs - 24 hr 05/11/22 08:27 05/11/22 08:27 05/11/22 08:37 Temperature Pulse Rate 56 L 54 L Respiratory Rate 16 16 Blood Pressure Pulse Oximetry 91 Oxygen Delivery Room Air Oxygen Flow Rate 05/11/22 10:00 05/11/22 12:00 05/11/22 12:38 Temperature 96.2 F L Pulse Rate 63 62 62 Respiratory Rate 18 16 Blood Pressure 117/48 L Pulse Oximetry 94 Oxygen Delivery Oxygen Flow Rate 05/11/22 12:53 05/11/22 13:11 05/11/22 12:00 Temperature 97.5 F L Pulse Rate 61 70 Respiratory Rate 16 16 Blood Pressure 116/48 L Pulse Oximetry 96 Oxygen Delivery Room Air Room Air Oxygen Flow Rate 05/11/22 14:14 05/11/22 14:25 05/11/22 14:40 Temperature 97.0 F L Pulse Rate 75 71 83 Respiratory Rate 14 12 12 Blood Pressure 112/57 L 114/53 L 118/62 Pulse Oximetry 99 99 97 Oxygen Delivery Simple Face Mask Simple Face Mask Room Air Oxygen Flow Rate 8 8 05/11/22 14:55 05/11/22 15:10 05/11/22 15:35 Temperature 96.7 F L Pulse Rate 74 75 72 Respiratory Rate 12 12 18 Blood Pressure 131/57 L 123/62 127/55 L Pulse Oximetry 94 93 96 Oxygen Delivery Room Air Room Air Oxygen Flow Rate 05/11/22 17:00 05/11/22 12:00 05/11/22 16:00 Temperature 96.8 F L Pulse Rate 73 63 76 Respiratory Rate 20 Blood Pressure 112/43 L Pulse Oximetry 93 Oxygen Delivery Oxygen Flow Rate 05/11/22 16:00 05/11/22 20:00 05/11/22 21:57 Temperature 97.3 F L Pulse Rate 77 74 Respiratory Rate 16 18 Blood Pressure 117/53 L Pulse Oximetry 91 Oxygen Delivery Room Air Oxygen Flow Rate 05/11/22 22:08 05/12/22 00:00 05/12/22 00:52 Temperature 97.4 F L Pulse Rate 74 79 77 Respiratory Rate 18 20 16 Blood Pressure 117/47 L Pulse Oximetry 90 Oxygen Delivery Oxygen Flow Rate 05/11/22 20:00 05/12/22 00:00 05/11/22 20:00 Temperature Pulse Rate 75 Respiratory Rate
[2022-05-12] MEDS: LORATADINE 10 MG TABLET PO (09:22)
[2022-05-12] MEDS: SERTRALINE HCL 50 MG TABLET 100 MG PO (09:22)
[2022-05-12] MEDS: TORSEMIDE 20 MG TABLET PO (09:22)
[2022-05-12] MEDS: allopurinoL 100 MG TABLET 200 MG PO (09:23)
[2022-05-12] MEDS: calcitrioL 0.25 MCG CAPSULE PO (09:23)
[2022-05-12] MEDS: amLODIPine BESYLATE 5 MG TABLET PO (09:23)
[2022-05-12] MEDS: CHOLECALCIFEROL 1,000 UNITS TABLET 2000 UNITS PO (09:23)
[2022-05-12] MEDS: ATORVASTATIN 10 MG TABLET PO (09:23)
[2022-05-12] MEDS: CIPROFLOXACIN 400 MG/D5W 200ML 200 ML 200 MG IVPB ×2 (09:24→20:21)
--- NOTE | 2022-05-12 09:47 | PM.IMPN ---
Progress Note: A&P Assessment and Plan (1) Acute UTI: Code(s): N39.0 - Urinary tract infection, site not specified Status: Acute Assessment and Plan: Abnormal urinalysis concerning for UTI, culture showing Gram-negative bacilli greater than 100,000 CFU, follow-up for sensitivities Cont cipro, watch QT closely (2) CAROLYNE (acute kidney injury): Code(s): N17.9 - Acute kidney failure, unspecified Status: Acute Assessment and Plan: Improving, appreciate urology consultation Patient likely has partial right ureter obstruction, but since he is improving, urology would like to hold off on nephrostomy tube, will defer to outpatient management if he continues to improve, monitor (3) Elevated troponin: Code(s): R77.8 - Other specified abnormalities of plasma proteins Status: Acute Assessment and Plan: EKG with no acute changes, troponin resolved Echo from May 11 showed an EF of 65-70%, abnormal diastolic function, no significant valvular abnormalities, no pulmonary hypertension noted (4) Morbid obesity with BMI of 45.0-49.9, adult: Code(s): E66.01 - Morbid (severe) obesity due to excess calories; Z68.42 - Body mass index [BMI] 45.0-49.9, adult Status: Acute Assessment and Plan: Lifestyle and diet modifications Plan DVT prophylaxis with heparin GI prophylaxis not indicated Code status full code Subjective Date/time seen: 05/12/22 09:47 Interval history: No overnight events noted. No chest pain or shortness of breath. No nausea, vomiting or diarrhea. No fevers or chills. Review of Systems Review of Systems: 12 point review of systems was assessed and was negative except as noted in the HPI Exam Narrative: General: No acute distress, alert and oriented per baseline HEENT: Atraumatic, normocephalic, mucous membranes moist CV: Regular rate and rhythm, S1, S2 Lungs: Clear to auscultation bilaterally, no rales or crackles noted, no wheezes, good air entry Abdomen: Soft, nontender, nondistended Extremities: Normal to inspection Skin: No rashes noted, no lesions or wounds seen Psych: Euthymic, normal affect Objective Data Vital Signs Vital Signs: Vital Signs - 24 hr 05/11/22 10:00 05/11/22 12:00 05/11/22 12:38 Temperature 96.2 F L Pulse Rate 63 62 62 Respiratory Rate 18 16 Blood Pressure 117/48 L Pulse Oximetry 94 Oxygen Delivery Oxygen Flow Rate 05/11/22 12:53 05/11/22 13:11 05/11/22 12:00 Temperature 97.5 F L Pulse Rate 61 70 Respiratory Rate 16 16 Blood Pressure 116/48 L Pulse Oximetry 96 Oxygen Delivery Room Air Room Air Oxygen Flow Rate 05/11/22 14:14 05/11/22 14:25 05/11/22 14:40 Temperature 97.0 F L Pulse Rate 75 71 83 Respiratory Rate 14 12 12 Blood Pressure 112/57 L 114/53 L 118/62 Pulse Oximetry 99 99 97 Oxygen Delivery Simple Face Mask Simple Face Mask Room Air Oxygen Flow Rate 8 8 05/11/22 14:55 05/11/22 15:10 05/11/22 15:35 Temperature 96.7 F L Pulse Rate 74 75 72 Respiratory Rate 12 12 18 Blood Pressure 131/57 L 123/62 127/55 L Pulse Oximetry 94 93 96 Oxygen Delivery Room Air Room Air Oxygen Flow Rate 05/11/22 17:00 05/11/22 12:00 05/11/22 16:00 Temperature 96.8 F L Pulse Rate 73 63 76 Respiratory Rate 20 Blood Pressure 112/43 L Pulse Oximetry 93 Oxygen Delivery Oxygen Flow Rate 05/11/22 16:00 05/11/22 20:00 05/11/22 21:57 Temperature 97.3 F L Pulse Rate 77 74 Respiratory Rate 16 18 Blood Pressure 117/53 L Pulse Oximetry 91 Oxygen Delivery Room Air Oxygen Flow Rate 05/11/22 22:08 05/12/22 00:00 05/12/22 00:52 Temperature 97.4 F L Pulse Rate 74 79 77 Respiratory Rate 18 20 16 Blood Pressure 117/47 L Pulse Oximetry 90 Oxygen Delivery Oxygen Flow Rate 05/11/22 20:00 05/12/22 00:00 05/11/22 20:00 Temperature Pulse Rate 75 Respiratory Rate Blood Pressure Pulse Oximetry Oxygen D
--- NOTE | 2022-05-12 11:07 | WPDANESPN ---
Anes - Prog Note Post-Op Date/Time: 05/12/22 11:07 Cardiovascular status: normal Respiratory status: normal Airway patency: baseline Mental status: baseline Post-Op hydration status: normal Vital Signs: Last Vital Signs Temp 36.1 C L 05/12/22 08:00 Pulse 83 05/12/22 10:15 Resp 18 05/12/22 10:15 BP 110/52 L 05/12/22 08:00 Pulse Ox 96 05/12/22 08:00 O2 Del Method Room Air 05/12/22 04:00 O2 Flow Rate 8 05/11/22 14:25 Pain Score (VAS): 0 I/O: Intake & Output 05/11/22 05/12/22 05/12/22 23:59 07:59 15:59 Intake Total 1120 400 Output Total 1100 1425 475 Balance 20 -1025 -475 Laboratory Tests 05/12/22 05:17 05/12/22 05:17 05/11/22 05/11/22 05/12/22 11:05 19:37 05:17 WBC 14.6 H RBC 4.05 L Hgb 12.5 L Hct 37.8 L MCV 93.3 MCH 30.9 MCHC 33.1 RDW 15.3 H Plt Count 218 MPV 9.9 PT INR APTT Sodium 137 Potassium 3.8 Chloride 101 Carbon Dioxide 22 Anion Gap 14 BUN 55 H Creatinine 3.40 H Estim Creat Clear Calc 28 Estimated GFR 18 L Glucose 207 H Calcium 6.2 L Magnesium 2.0 Troponin I 0.047 H* D 0.020 05/12/22 05/12/22 05:17 05:17 WBC RBC Hgb Hct MCV MCH MCHC RDW Plt Count MPV PT 15.8 H INR 1.3 APTT 37.3 H Sodium 136 L Potassium 3.6 Chloride 100 Carbon Dioxide 24 Anion Gap 12 BUN 53 H Creatinine 3.10 H Estim Creat Clear Calc 31 Estimated GFR 20 L Glucose 171 H Calcium 6.5 L Magnesium Troponin I Microbiology 05/10/22 19:43 Blood Blood Culture - Preliminary 05/10/22 20:30 Urine Clean Catch Urine Culture - Preliminary Gram negative bacilli isolated 05/10/22 19:42 Blood Blood Culture - Preliminary Post-procedural complaints: none Patient Feedback: Patient satisfied with anesthetic care.
[2022-05-12] MEDS: PREGABALIN (*CRX) 75 MG CAPSULE 150 MG PO ×2 (12:21→17:08)
[2022-05-12] MEDS: FLUoxetine HCL 20 MG CAPSULE PO (12:39)
--- NOTE | 2022-05-12 13:02 | PHAR ---
HOME MED VERIFIED XTAMPZA ER 13.5MG TAKE 1 CAPSULE EVERY 12 HOURS
--- NOTE | 2022-05-12 13:42 | PC.NURSE ---
Pt family brought in pt's home medication, Xtampza. Per Dr. Dia, discontinue oxycodone, and resume Xtampza.
[2022-05-12] MEDS: rOPINIRole HCL 1 MG TABLET 2 MG PO (20:20)
[2022-05-12] MEDS: traZODone HCL 50 MG TABLET 100 MG PO (20:21)
[2022-05-13] VITALS (21 sets, daily range): BP systolic 91–116; BP diastolic 42–67; PULSE 71–98; RESP 14–24; TEMP 35.9–36.8; O2SAT 91–98
[2022-05-13] MEDS: ALBUTEROL SULFATE NEB 2.5 MG/3 ML INH INHALATION ×6 (00:20→20:20)
[2022-05-13] MEDS: IPRATROPIUM BR 0.02% INH SOLN 0.5 MG/2.5 ML VIAL INHALATION ×6 (00:20→20:20)
[2022-05-13 05:19] LABS: Hematocrit 37.5 % (42.0-52.0); Hemoglobin 12.1 g/dL (14.0-18.0); Mean Corpuscular HGB Conc 32.3 g/dl (32-36); Mean Corpuscular Hemoglobin 29.9 pg (26-34); Mean Corpuscular Volume 92.6 fl (80-100); Mean Platelet Volume 10.2 fl (7.4-10.4); Platelet Count Result 243 k/mm3 (150-375); Red Blood Count 4.05 M/mm3 (4.6-6.20); White Blood Count 11.5 K/mm3 (4.5-10.0)
[2022-05-13 05:34] LABS: Anion Gap 9 mmol/L (8-16); Blood Urea Nitrogen 54 mg/dL (9-20); Calcium 6.8 mg/dL (8.4-10.2); Carbon Dioxide 29 mmol/L (22-30); Chloride 102 mmol/L (98-107); Estimated CRCL calculation 35 ml/min; Estimated Glomerular Filt Rate 23; Glucose 122 mg/dL (65-110); Potassium 3.1 mmol/L (3.4-5.0); Sodium 140 mmol/L (137-145)
--- NOTE | 2022-05-13 08:01 | WPDUROPN2 ---
Progress Note: A&P Assessment and Plan (1) Solitary right kidney: Status: Acute (2) History of bladder cancer: Code(s): Z85.51 - Personal history of malignant neoplasm of bladder Status: Acute (3) Morbid obesity with BMI of 45.0-49.9, adult: Code(s): E66.01 - Morbid (severe) obesity due to excess calories; Z68.42 - Body mass index [BMI] 45.0-49.9, adult Status: Acute (4) Acute UTI: Code(s): N39.0 - Urinary tract infection, site not specified Status: Acute Plan Renal function and leukocytosis continue to improve.? Although I do feel his right ureter is likely partially obstructed (which could be cause for recurrent infections) given that he's slowly improving, has good urine output per ileostomy will hold off on placement of right nephrostomy tube at this point as risks outweight benefits.? Complete course of antibiotics -blood in urine culture with Enterobacter. Recommend 14 day course of ciprofloxacin Plan outpatient follow up to follow his serum creat. and evaluate further for obstructive uropathy, can be done here (Dr. Vences) or with his urologist in [place] (Dr. Amilcar Aaron). Subjective Subjective Date/Time Seen: 05/13/22 08:01 New events overnight. Patient denies hematuria. He states he is feeling well Exam Narrative: Patient is awake and alert. He is in no acute distress. His breathing nonlabored. His abdomen is soft nontender nondistended. Ileal conduit in place draining clear urine. Objective Data Vital Signs Vital Signs: Vital Signs - 24 hr 05/12/22 09:50 05/12/22 10:15 05/12/22 12:00 Temperature Pulse Rate 81 83 Respiratory Rate 18 18 Blood Pressure Pulse Oximetry 96 Oxygen Delivery Room Air 05/12/22 12:00 05/12/22 16:00 05/12/22 16:00 Temperature 36.3 C L 36.3 C L Pulse Rate 86 79 Respiratory Rate 20 20 Blood Pressure 114/48 L 119/60 Pulse Oximetry 96 96 95 Oxygen Delivery Room Air 05/12/22 17:24 05/12/22 12:35 05/12/22 12:49 Temperature Pulse Rate 79 77 80 Respiratory Rate 20 20 18 Blood Pressure Pulse Oximetry Oxygen Delivery 05/12/22 19:58 05/12/22 20:40 05/12/22 20:42 Temperature 36.4 C Pulse Rate 82 77 Respiratory Rate 16 20 Blood Pressure 109/57 L Pulse Oximetry 94 93 Oxygen Delivery Room Air 05/12/22 20:50 05/12/22 20:00 05/13/22 00:00 Temperature 36.2 C L Pulse Rate 76 78 Respiratory Rate 20 16 Blood Pressure 101/42 L Pulse Oximetry 96 91 Oxygen Delivery Room Air 05/13/22 00:20 05/13/22 00:30 05/13/22 00:00 Temperature Pulse Rate 77 74 Respiratory Rate 20 20 Blood Pressure Pulse Oximetry 96 Oxygen Delivery Room Air 05/13/22 00:00 05/13/22 04:36 05/13/22 04:48 Temperature Pulse Rate 74 71 75 Respiratory Rate 20 20 Blood Pressure Pulse Oximetry Oxygen Delivery 05/13/22 04:00 05/13/22 07:52 Temperature Pulse Rate Respiratory Rate Blood Pressure Pulse Oximetry 96 98 Oxygen Delivery Room Air Room Air Intake/Output Intake/Output: Intake & Output 05/10/22 05/11/22 05/12/22 05/13/22 23:59 23:59 23:59 23:59 Intake Total 1300 1520 2070 400 Output Total 1100 3350 1450 Balance 1300 420 1280 -1050 Meds/Results Medications: Active Medications Generic Name Dose Route Start Last Admin Trade Name Freq PRN Reason Stop Dose Admin Albuterol 2.5 mg 05/11/22 04:00 05/13/22 07:59 Albuterol Sulfate Neb 2.5 Mg/3 Ml Inh INHALATION 2.5 mg Q4HRT NODINA Administration Allopurinol 200 mg 05/11/22 08:00 05/12/22 09:23 Allopurinol 100 Mg Tablet PO 200 mg DAILY@0800 ONDINA Administration Amlodipine Besylate 5 mg 05/11/22 09:00 05/12/22 09:23 Amlodipine Besylate 5 Mg Tablet PO 5 mg DAILY ONDINA Administration Atorvastatin Calcium 10 mg 05/12/22 09:00 05/12/22 09:23 Atorvastatin 10 Mg Tablet PO 10 mg DAILY ONDINA Administration Calcitriol 0.25 mcg 05/12/22 09:00 05/12/22
--- NOTE | 2022-05-13 08:22 | PM.IMPN ---
Progress Note: A&P Assessment and Plan (1) Acute UTI: Code(s): N39.0 - Urinary tract infection, site not specified Status: Acute Assessment and Plan: Abnormal urinalysis concerning for UTI, culture showing gram-negative bacilli greater than 100,000 CFU, enterobacter cloacae complex, sens to cipro, watch QT closely (2) Bacteremia: Code(s): R78.81 - Bacteremia Status: Acute Assessment and Plan: blood cx positive for enterobacter cloacae complex, sens to cipro repeat bld cx pending (3) CAROLYNE (acute kidney injury): Code(s): N17.9 - Acute kidney failure, unspecified Status: Acute Assessment and Plan: Improving, appreciate urology consultation Patient likely has partial right ureter obstruction, but since he is improving, urology would like to hold off on nephrostomy tube, will defer to outpatient management if he continues to improve, monitor (4) Elevated troponin: Code(s): R77.8 - Other specified abnormalities of plasma proteins Status: Acute Assessment and Plan: EKG with minimal acute changes, troponin resolved, concern for possible underlying cardiac etiology? Echo from May 11 showed an EF of 65-70%, abnormal diastolic function, no significant valvular abnormalities, no pulmonary hypertension noted Cardiology consult pending (5) Morbid obesity with BMI of 45.0-49.9, adult: Code(s): E66.01 - Morbid (severe) obesity due to excess calories; Z68.42 - Body mass index [BMI] 45.0-49.9, adult Status: Acute Assessment and Plan: Lifestyle and diet modifications Plan DVT prophylaxis with heparin GI prophylaxis not indicated Code status full code Subjective Date/time seen: 05/13/22 08:22 Interval history: No overnight events noted. No chest pain or shortness of breath. No nausea, vomiting or diarrhea. No fevers or chills. Review of Systems Review of Systems: 12 point review of systems was assessed and was negative except as noted in the HPI Exam Narrative: General: No acute distress, alert and oriented per baseline HEENT: Atraumatic, normocephalic, mucous membranes moist CV: Regular rate and rhythm, S1, S2 Lungs: Clear to auscultation bilaterally, no rales or crackles noted, no wheezes, good air entry Abdomen: Soft, nontender, nondistended Extremities: Normal to inspection Skin: No rashes noted, no lesions or wounds seen Psych: Euthymic, normal affect Objective Data Vital Signs Vital Signs: Vital Signs - 24 hr 05/12/22 09:50 05/12/22 10:15 05/12/22 12:00 Temperature Pulse Rate 81 83 Respiratory Rate 18 18 Blood Pressure Pulse Oximetry 96 Oxygen Delivery Room Air 05/12/22 12:00 05/12/22 16:00 05/12/22 16:00 Temperature 97.4 F L 97.3 F L Pulse Rate 86 79 Respiratory Rate 20 20 Blood Pressure 114/48 L 119/60 Pulse Oximetry 96 96 95 Oxygen Delivery Room Air 05/12/22 17:24 05/12/22 12:35 05/12/22 12:49 Temperature Pulse Rate 79 77 80 Respiratory Rate 20 20 18 Blood Pressure Pulse Oximetry Oxygen Delivery 05/12/22 19:58 05/12/22 20:40 05/12/22 20:42 Temperature 97.6 F Pulse Rate 82 77 Respiratory Rate 16 20 Blood Pressure 109/57 L Pulse Oximetry 94 93 Oxygen Delivery Room Air 05/12/22 20:50 05/12/22 20:00 05/13/22 00:00 Temperature 97.1 F L Pulse Rate 76 78 Respiratory Rate 20 16 Blood Pressure 101/42 L Pulse Oximetry 96 91 Oxygen Delivery Room Air 05/13/22 00:20 05/13/22 00:30 05/13/22 00:00 Temperature Pulse Rate 77 74 Respiratory Rate 20 20 Blood Pressure Pulse Oximetry 96 Oxygen Delivery Room Air 05/13/22 00:00 05/13/22 04:36 05/13/22 04:48 Temperature Pulse Rate 74 71 75 Respiratory Rate 20 20 Blood Pressure Pulse Oximetry Oxygen Delivery 05/13/22 04:00 05/13/22 07:52 05/13/22 08:01 Temperature Pulse Rate 84 Respiratory Rate 20 Blood Pressure Pulse Oximetry 96 98 Ox
[2022-05-13] MEDS: calcitrioL 0.25 MCG CAPSULE PO (08:29)
[2022-05-13] MEDS: ATORVASTATIN 10 MG TABLET PO (08:29)
[2022-05-13] MEDS: allopurinoL 100 MG TABLET 200 MG PO (08:29)
[2022-05-13] MEDS: TORSEMIDE 20 MG TABLET PO (08:29)
[2022-05-13] MEDS: LORATADINE 10 MG TABLET PO (08:29)
[2022-05-13] MEDS: SERTRALINE HCL 50 MG TABLET 100 MG PO (08:29)
[2022-05-13] MEDS: CHOLECALCIFEROL 1,000 UNITS TABLET 2000 UNITS PO (08:29)
[2022-05-13] MEDS: FLUoxetine HCL 20 MG CAPSULE PO (08:29)
[2022-05-13] MEDS: amLODIPine BESYLATE 5 MG TABLET PO (08:30)
[2022-05-13] MEDS: PREGABALIN (*CRX) 75 MG CAPSULE 150 MG PO ×2 (08:30→13:16)
[2022-05-13] MEDS: CIPROFLOXACIN 400 MG/D5W 200ML 200 ML 200 MG IVPB ×2 (08:31→20:28)
[2022-05-13] MEDS: LORazepam INJ (*CRX) 2 MG/ML VIAL 0.5 MG IV PUSH ×2 (13:58→20:33)
--- NOTE | 2022-05-13 14:58 | PM.CNCAR ---
Assessment and Plan Assessment and plan (1) Elevated troponin: Code(s): R77.8 - Other specified abnormalities of plasma proteins Status: Acute (2) Sepsis: Code(s): A41.9 - Sepsis, unspecified organism Status: Acute (3) Acute UTI: Code(s): N39.0 - Urinary tract infection, site not specified Status: Acute (4) CAROLYNE (acute kidney injury): Code(s): N17.9 - Acute kidney failure, unspecified Status: Acute Plan On admission, his troponins were checked and the first 2 were negative on 05/10. Troponins thereafter were mildly positive with a trend of 0.119 --> 0.089 --> 0.066 --> 0.047 --> 0.020. His initial EKGs showed sinus rhythm with LBBB. Repeat EKGs since then show sinus rhythm with a narrow QRS with T-wave inversions in the anterior leads that have remained stable on multiple repeat EKGs. TTE this admission shows LVEF 65-70%, moderately increased LV wall thickness, normal global longitudinal strain, no significant valvular disease. History and clinical presentation not consistent with acute coronary syndrome. He has not had any chest pain. No shortness of breath. Given these mildly elevated troponins, EKG findings, intermittent LBBB, moderate coronary artery calcifications noted on CT scan, it is certainly reasonable to obtain stress test in this patient. However, does not need to be done as an inpatient, and can be pursued as an outpatient. Given moderate coronary artery calcifications, recommend ASA 81mg once daily and statin. Cardiology will sign off at this time. History of Present Illness History of Present Illness Consult date/time: 05/13/22 14:58 Requesting physician: Mima Dia DO Consult reason: Other (Elevated troponins) Reason For Visit: Hypoxic/PNA Narrative: Consult reason: Stress test? Abnormal ECG + elevated troponin This is a 71-year-old male with a history of dyslipidemia, gout, hypertension, chronic pain, restless leg syndrome, depression, obesity, history of bladder cancer, history of renal cancer who presented to the ER on 05/10 with shortness of breath, fatigue, body aches/pains, generalized weakness. Patient found with an CAROLYNE with a SCr of 3.6. He was found with a partial obstruction of right ureter and UTI. Serum creatinine peaked at 3.9. On admission, his troponins were checked and the first 2 were negative on 05/10. Troponins thereafter were mildly positive with a trend of 0.119 --> 0.089 --> 0.066 --> 0.047 --> 0.020. His initial EKGs showed sinus rhythm with LBBB. Repeat EKGs since then show sinus rhythm with a narrow QRS with T-wave inversions in the anterior leads that have remained stable on multiple repeat EKGs. Patient is without any chest pain or shortness of breath. Denies chest pain prior to admission. No prior known cardiac history. Review of Systems Review of Systems: 12-point ROS obtained. Negative, unless stated in HPI. [facility] Past Medical History Medical History Bladder cancer Renal cancer Surgical History Surgical History History of bladder surgery History of nephrectomy Social History Social History Smoking status: Former smoker Alcohol intake: never Substance use: never Lack of Transportation: No Lack of Food: Never True Current Housing: I Have Housing Concerned About Future Housing: No Difficulty Paying Gas/Electric Bills: No Difficulty Paying for Meds: No Currently Unemployed: No Education: High School Diploma/GED Difficulty w/ Childcare or Family Care: No Spiritual care concerns: No Meds Home Medications and Allergies Home Medications Medication Instructions Recorded Confirmed Type Cranberry Plus Vitamin C 450 mg PO DAILY 05/11/22 05/11/22 History allopurinol 100 mg tablet 200 mg PO DAILY 05/11/22 05/11/22 History amlodipin
[2022-05-13] MEDS: rOPINIRole HCL 1 MG TABLET 2 MG PO (20:36)
[2022-05-13] MEDS: traZODone HCL 50 MG TABLET 100 MG PO (20:37)
[2022-05-14] VITALS (20 sets, daily range): BP systolic 110–128; BP diastolic 51–70; PULSE 65–99; RESP 14–24; TEMP 36.2–36.8; O2SAT 92–99
[2022-05-14] MEDS: ALBUTEROL SULFATE NEB 2.5 MG/3 ML INH INHALATION ×5 (00:12→20:29)
[2022-05-14] MEDS: IPRATROPIUM BR 0.02% INH SOLN 0.5 MG/2.5 ML VIAL INHALATION ×5 (00:12→20:29)
[2022-05-14] MEDS: LORazepam INJ (*CRX) 2 MG/ML VIAL 0.5 MG IV PUSH ×4 (01:17→20:28)
[2022-05-14 04:24] LABS: Hematocrit 38.4 % (42.0-52.0); Hemoglobin 12.8 g/dL (14.0-18.0); Mean Corpuscular HGB Conc 33.3 g/dl (32-36); Mean Corpuscular Hemoglobin 30.7 pg (26-34); Mean Corpuscular Volume 92.1 fl (80-100); Mean Platelet Volume 10.7 fl (7.4-10.4); Platelet Count Result 250 k/mm3 (150-375); Red Blood Count 4.17 M/mm3 (4.6-6.20); Red Cell Distribution Width 15.2 % (11.5-14.5); White Blood Count 11.1 K/mm3 (4.5-10.0)
[2022-05-14 04:33] LABS: Anion Gap 11 mmol/L (8-16); Blood Urea Nitrogen 55 mg/dL (9-20); Calcium 7.3 mg/dL (8.4-10.2); Carbon Dioxide 27 mmol/L (22-30); Chloride 100 mmol/L (98-107); Estimated CRCL calculation 39 ml/min; Estimated Glomerular Filt Rate 26; Glucose 104 mg/dL (65-110); Potassium 3.3 mmol/L (3.4-5.0); Sodium 138 mmol/L (137-145)
[2022-05-14] MEDS: ACETAMINOPHEN 325 MG TABLET 650 MG PO (06:31)
[2022-05-14] MEDS: PREGABALIN (*CRX) 75 MG CAPSULE 150 MG PO ×3 (08:06→17:18)
[2022-05-14] MEDS: calcitrioL 0.25 MCG CAPSULE PO (08:06)
[2022-05-14] MEDS: FLUoxetine HCL 20 MG CAPSULE PO (08:06)
[2022-05-14] MEDS: allopurinoL 100 MG TABLET 200 MG PO (08:06)
[2022-05-14] MEDS: CHOLECALCIFEROL 1,000 UNITS TABLET 2000 UNITS PO (08:06)
[2022-05-14] MEDS: ATORVASTATIN 10 MG TABLET PO (08:06)
[2022-05-14] MEDS: LORATADINE 10 MG TABLET PO (08:07)
[2022-05-14] MEDS: SERTRALINE HCL 50 MG TABLET 100 MG PO (08:07)
[2022-05-14] MEDS: amLODIPine BESYLATE 5 MG TABLET PO (08:07)
[2022-05-14] MEDS: CIPROFLOXACIN 400 MG/D5W 200ML 200 ML 200 MG IVPB ×2 (08:07→20:29)
[2022-05-14] MEDS: TORSEMIDE 20 MG TABLET PO (08:07)
--- NOTE | 2022-05-14 09:41 | PM.IMPN ---
Progress Note: A&P Assessment and Plan (1) Acute UTI: Code(s): N39.0 - Urinary tract infection, site not specified Status: Acute Assessment and Plan: Abnormal urinalysis concerning for UTI, culture showing gram-negative bacilli greater than 100,000 CFU, enterobacter cloacae complex, sens to cipro, watch QT closely (2) Bacteremia: Code(s): R78.81 - Bacteremia Status: Acute Assessment and Plan: blood cx positive for enterobacter cloacae complex, sens to cipro repeat bld cx pending (3) CAROLYNE (acute kidney injury): Code(s): N17.9 - Acute kidney failure, unspecified Status: Acute Assessment and Plan: Improving, appreciate urology consultation Patient likely has partial right ureter obstruction, but since he is improving, urology would like to hold off on nephrostomy tube, will defer to outpatient management if he continues to improve, monitor (4) Elevated troponin: Code(s): R77.8 - Other specified abnormalities of plasma proteins Status: Acute Assessment and Plan: EKG with minimal acute changes, troponin resolved, concern for possible underlying cardiac etiology? Echo from May 11 showed an EF of 65-70%, abnormal diastolic function, no significant valvular abnormalities, no pulmonary hypertension noted Cardiology consult pending (5) Morbid obesity with BMI of 45.0-49.9, adult: Code(s): E66.01 - Morbid (severe) obesity due to excess calories; Z68.42 - Body mass index [BMI] 45.0-49.9, adult Status: Acute Assessment and Plan: Lifestyle and diet modifications (6) Depression with anxiety: Code(s): F41.8 - Other specified anxiety disorders Status: Acute Assessment and Plan: restarted prozac 20 mg daily which he was on previously and ativan as needed Plan DVT prophylaxis with heparin GI prophylaxis not indicated Code status full code Subjective Date/time seen: 05/14/22 09:41 Interval history: No overnight events noted. No chest pain or shortness of breath. No nausea, vomiting or diarrhea. No fevers or chills. Review of Systems Review of Systems: 12 point review of systems was assessed and was negative except as noted in the HPI Exam Narrative: General: No acute distress, alert and oriented per baseline HEENT: Atraumatic, normocephalic, mucous membranes moist CV: Regular rate and rhythm, S1, S2 Lungs: Clear to auscultation bilaterally, no rales or crackles noted, no wheezes, good air entry Abdomen: Soft, nontender, nondistended Extremities: Normal to inspection Skin: No rashes noted, no lesions or wounds seen Psych: Euthymic, normal affect Objective Data Vital Signs Vital Signs: Vital Signs - 24 hr 05/13/22 12:00 05/13/22 12:55 05/13/22 13:09 Temperature 98.2 F Pulse Rate 90 76 76 Respiratory Rate 18 20 20 Blood Pressure 101/67 Pulse Oximetry 97 Oxygen Delivery 05/13/22 16:00 05/13/22 16:56 05/13/22 17:06 Temperature 96.6 F L Pulse Rate 83 90 82 Respiratory Rate 14 20 20 Blood Pressure 116/61 Pulse Oximetry 93 Oxygen Delivery 05/13/22 20:22 05/13/22 20:30 05/13/22 22:04 Temperature Pulse Rate 94 98 Respiratory Rate 18 18 Blood Pressure Pulse Oximetry 94 Oxygen Delivery Room Air 05/13/22 20:00 05/13/22 20:00 05/13/22 23:06 Temperature 97.2 F L Pulse Rate 75 Respiratory Rate Blood Pressure Pulse Oximetry 98 Oxygen Delivery Room Air 05/14/22 00:00 05/14/22 00:00 05/14/22 02:00 Temperature 97.2 F L Pulse Rate 79 79 73 Respiratory Rate 20 Blood Pressure 114/51 L Pulse Oximetry 99 Oxygen Delivery 05/14/22 00:12 05/14/22 00:22 05/14/22 04:35 Temperature Pulse Rate 96 99 93 Respiratory Rate 16 16 16 Blood Pressure Pulse Oximetry Oxygen Delivery 05/14/22 04:00 05/14/22 06:00 05/14/22 07:42 Temperature Pulse Rate 75 65 79 Respiratory Rate Blood Pressure Pulse Oximetry
--- NOTE | 2022-05-14 12:31 | WPDUROPN2 ---
Progress Note: A&P Assessment and Plan (1) Bacteremia: Code(s): R78.81 - Bacteremia Status: Acute (2) Solitary right kidney: Status: Acute (3) History of bladder cancer: Code(s): Z85.51 - Personal history of malignant neoplasm of bladder Status: Acute (4) Acute UTI: Code(s): N39.0 - Urinary tract infection, site not specified Status: Acute Plan Renal function and leukocytosis continue to improve.? Although I do feel his right ureter is likely partially obstructed (which could be cause for recurrent infections) given that he's slowly improving, has good urine output per ileostomy will hold off on placement of right nephrostomy tube at this point as risks outweight benefits.? Complete course of antibiotics -blood in urine culture with Enterobacter.? Recommend 14 day course of ciprofloxacin Plan outpatient follow up to follow his serum creat. and evaluate further for obstructive uropathy, can be done here (Dr. Vences) or with his urologist in [place] (Dr. Amilcar Aaron). Subjective Subjective Date/Time Seen: 05/14/22 12:31 patient feeling well Exam Narrative: patient is feeling well. Abdomen soft nondistended. Breathing is unlabored Objective Data Vital Signs Vital Signs: Vital Signs - 24 hr 05/13/22 12:55 05/13/22 13:09 05/13/22 16:00 Temperature 35.9 C L Pulse Rate 76 76 83 Respiratory Rate 20 20 14 Blood Pressure 116/61 Pulse Oximetry 93 Oxygen Delivery 05/13/22 16:56 05/13/22 17:06 05/13/22 20:22 Temperature Pulse Rate 90 82 94 Respiratory Rate 20 20 18 Blood Pressure Pulse Oximetry Oxygen Delivery 05/13/22 20:30 05/13/22 22:04 05/13/22 20:00 Temperature Pulse Rate 98 Respiratory Rate 18 Blood Pressure Pulse Oximetry 94 98 Oxygen Delivery Room Air Room Air 05/13/22 20:00 05/13/22 23:06 05/14/22 00:00 Temperature 36.2 C L 36.2 C L Pulse Rate 75 79 Respiratory Rate 20 Blood Pressure 114/51 L Pulse Oximetry 99 Oxygen Delivery 05/14/22 00:00 05/14/22 02:00 05/14/22 00:12 Temperature Pulse Rate 79 73 96 Respiratory Rate 16 Blood Pressure Pulse Oximetry Oxygen Delivery 05/14/22 00:22 05/14/22 04:35 05/14/22 04:00 Temperature Pulse Rate 99 93 75 Respiratory Rate 16 16 Blood Pressure Pulse Oximetry Oxygen Delivery 05/14/22 06:00 05/14/22 07:42 05/14/22 07:42 Temperature Pulse Rate 65 79 79 Respiratory Rate 16 Blood Pressure Pulse Oximetry 95 Oxygen Delivery Room Air 05/14/22 07:54 05/14/22 07:00 05/14/22 08:27 Temperature 36.4 C Pulse Rate 76 Respiratory Rate 24 H Blood Pressure 128/70 Pulse Oximetry 97 Oxygen Delivery Room Air 05/14/22 12:08 Temperature Pulse Rate Respiratory Rate Blood Pressure Pulse Oximetry Oxygen Delivery Room Air Intake/Output Intake/Output: Intake & Output 05/11/22 05/12/22 05/13/22 05/14/22 23:59 23:59 23:59 23:59 Intake Total 1520 2070 2640 240 Output Total 1100 3350 3400 1075 Balance 420 -1280 -760 -835 Meds/Results Medications: Active Medications Generic Name Dose Route Start Last Admin Trade Name Freq PRN Reason Stop Dose Admin Acetaminophen 650 mg 05/14/22 05:39 05/14/22 06:31 Acetaminophen 325 Mg Tablet PO 650 mg Q6H PRN Administration Mild Pain (1-3) or Fever Albuterol 2.5 mg 05/11/22 04:00 05/14/22 11:51 Albuterol Sulfate Neb 2.5 Mg/3 Ml Inh INHALATION Not Given Q4[facility]RT [facility] Allopurinol 200 mg 05/11/22 08:00 05/14/22 08:06 Allopurinol 100 Mg Tablet PO 200 mg DAILY@0800 ONDINA Administration Amlodipine Besylate 5 mg 05/11/22 09:00 05/14/22 08:07 Amlodipine Besylate 5 Mg Tablet PO 5 mg DAILY ONDINA Administration Atorvastatin Calcium 10 mg 05/12/22 09:00 05/14/22 08:06 Atorvastatin 10 Mg Tablet PO 10 mg DAILY ONDINA Administration Calcitriol 0.25 mcg 05/12/22 09:00 05/14/22 08:06 [facility]
--- NOTE | 2022-05-14 18:24 | ECG_ITS ---
Measurements Intervals [place] Rate: 82 P: 37 RI: 166 QRS: -44 QRSD: 101 T: 62 QT: 393 QTc: 460 Interpretive Statements SINUS RHYTHM LEFT AXIS DEVIATION DELAYED PRECORDIAL R/S TRANSITION BORDERLINE ECG COMPARED TO ECG 05/11/2022 20:17:43 T WAVE ABNORMALITY RESOLVED Electronically Signed On 05-15-2022 7:52:04 [employer] by Guillermo Viramontes D.O.
[2022-05-14] MEDS: NITROGLYCERIN SL 0.4 MG TABLET SUBLINGUAL (18:55)
--- NOTE | 2022-05-14 18:55 | PC.NURSE ---
1825 Pt ambulated to bathroom, telemetry--tachycardia HR 118 appears to have possible ST elevation. Pt c/o crushing chest pain 5/10, tightness, left shoulder pain. V/S normal. EKG ordered, troponins ordered. Dr Marshall ordered nitro 0.4 mg SL x 1, if BP okay. 1840 BP 112/67, HR 88, Pain improving /10 1845 BP 118/70, HR 97, Pain 2/10
[2022-05-14 19:23] LABS: Troponin I < 0.012 ng/mL (0.000-0.034)
[2022-05-14] MEDS: rOPINIRole HCL 1 MG TABLET 2 MG PO (20:27)
[2022-05-14] MEDS: traZODone HCL 50 MG TABLET 100 MG PO (20:27)
[2022-05-15] VITALS (13 sets, daily range): BP systolic 99–119; BP diastolic 45–66; PULSE 76–97; RESP 16–20; TEMP 36.4–36.8; O2SAT 92–96
[2022-05-15] MEDS: IPRATROPIUM BR 0.02% INH SOLN 0.5 MG/2.5 ML VIAL INHALATION ×4 (00:03→13:30)
[2022-05-15] MEDS: ALBUTEROL SULFATE NEB 2.5 MG/3 ML INH INHALATION ×4 (00:03→13:30)
[2022-05-15] MEDS: LORazepam INJ (*CRX) 2 MG/ML VIAL 0.5 MG IV PUSH ×3 (01:29→13:32)
[2022-05-15 05:15] LABS: Hematocrit 40.4 % (42.0-52.0); Hemoglobin 13.2 g/dL (14.0-18.0); Mean Corpuscular HGB Conc 32.7 g/dl (32-36); Mean Corpuscular Hemoglobin 30.1 pg (26-34); Mean Corpuscular Volume 92.2 fl (80-100); Mean Platelet Volume 10.1 fl (7.4-10.4); Platelet Count Result 262 k/mm3 (150-375); Red Blood Count 4.38 M/mm3 (4.6-6.20); Red Cell Distribution Width 15.2 % (11.5-14.5); White Blood Count 14.1 K/mm3 (4.5-10.0)
[2022-05-15 05:20] LABS: Anion Gap 9 mmol/L (8-16); Blood Urea Nitrogen 59 mg/dL (9-20); Calcium 7.6 mg/dL (8.4-10.2); Carbon Dioxide 31 mmol/L (22-30); Chloride 95 mmol/L (98-107); Estimated CRCL calculation 33 ml/min; Estimated Glomerular Filt Rate 22; Glucose 109 mg/dL (65-110); Potassium 3.9 mmol/L (3.4-5.0); Sodium 135 mmol/L (137-145)
[2022-05-15] MEDS: allopurinoL 100 MG TABLET 200 MG PO (08:24)
[2022-05-15] MEDS: FLUoxetine HCL 20 MG CAPSULE PO (08:25)
[2022-05-15] MEDS: calcitrioL 0.25 MCG CAPSULE PO (08:25)
[2022-05-15] MEDS: amLODIPine BESYLATE 5 MG TABLET PO (08:25)
[2022-05-15] MEDS: CHOLECALCIFEROL 1,000 UNITS TABLET 2000 UNITS PO (08:25)
[2022-05-15] MEDS: TORSEMIDE 20 MG TABLET PO (08:25)
[2022-05-15] MEDS: SERTRALINE HCL 50 MG TABLET 100 MG PO (08:25)
[2022-05-15] MEDS: LORATADINE 10 MG TABLET PO (08:25)
[2022-05-15] MEDS: ATORVASTATIN 10 MG TABLET PO (08:28)
[2022-05-15] MEDS: PREGABALIN (*CRX) 75 MG CAPSULE 150 MG PO ×3 (08:32→17:02)
[2022-05-15] MEDS: CIPROFLOXACIN 400 MG/D5W 200ML 200 ML 200 MG IVPB (08:32)
--- NOTE | 2022-05-15 10:23 | PM.IMPN ---
Progress Note: A&P Assessment and Plan (1) Acute UTI: Code(s): N39.0 - Urinary tract infection, site not specified Status: Acute Assessment and Plan: Urine culture showing gram-negative bacilli greater than 100,000 CFU, enterobacter cloacae complex, sens to cipro, watch QT closely, IV Cipro started on May 11, 2022 (2) Bacteremia: Code(s): R78.81 - Bacteremia Status: Acute Assessment and Plan: blood cx positive for enterobacter cloacae complex, sens to cipro repeat bld cx NGTD worsening leukocytosis, concerning for obstructive uropathy not completely resolved, may need nephrostomy tube, defer to urology recs (3) CAROLYNE (acute kidney injury): Code(s): N17.9 - Acute kidney failure, unspecified Status: Acute Assessment and Plan: Worsening today, appreciate urology consultation Patient likely has partial right ureter obstruction, but since he is improving, urology would like to hold off on nephrostomy tube, will defer to outpatient management if he continues to improve, monitor (4) Elevated troponin: Code(s): R77.8 - Other specified abnormalities of plasma proteins Status: Acute Assessment and Plan: EKG with minimal acute changes, troponin resolved, concern for possible underlying cardiac etiology? Echo from May 11 showed an EF of 65-70%, abnormal diastolic function, no significant valvular abnormalities, no pulmonary hypertension noted Cardiology consult appreciated, outpatient stress test being planned (5) Morbid obesity with BMI of 45.0-49.9, adult: Code(s): E66.01 - Morbid (severe) obesity due to excess calories; Z68.42 - Body mass index [BMI] 45.0-49.9, adult Status: Acute Assessment and Plan: Lifestyle and diet modifications (6) Depression with anxiety: Code(s): F41.8 - Other specified anxiety disorders Status: Acute Assessment and Plan: cont prozac 20 mg daily, which he was on previously, and ativan as needed Plan DVT prophylaxis with heparin GI prophylaxis not indicated Code status full code Subjective Date/time seen: 05/15/22 10:23 Interval history: No overnight events noted. No chest pain or shortness of breath. No nausea, vomiting or diarrhea. No fevers or chills. He did have some chest pain, EKG and troponin were both negative for any acute changes. This was thought to be secondary to anxiety. Review of Systems Review of Systems: 12 point review of systems was assessed and was negative except as noted in the HPI Exam Narrative: General: No acute distress, alert and oriented per baseline HEENT: Atraumatic, normocephalic, mucous membranes moist CV: Regular rate and rhythm, S1, S2 Lungs: Clear to auscultation bilaterally, no rales or crackles noted, no wheezes, good air entry Abdomen: Soft, nontender, nondistended Extremities: Normal to inspection Skin: No rashes noted, no lesions or wounds seen Psych: Euthymic, normal affect Objective Data Vital Signs Vital Signs: Vital Signs - 24 hr 05/14/22 12:08 05/14/22 15:50 05/14/22 15:58 Temperature Pulse Rate 83 80 Respiratory Rate 14 14 Blood Pressure Pulse Oximetry Oxygen Delivery Room Air Fraction of Inspired Oxygen 05/14/22 16:00 05/14/22 16:15 05/14/22 18:40 Temperature 98.2 F Pulse Rate 82 89 88 Respiratory Rate 16 16 Blood Pressure 125/60 112/67 Pulse Oximetry 92 Oxygen Delivery Fraction of Inspired Oxygen 05/14/22 18:55 05/14/22 20:27 05/14/22 20:32 Temperature 98 F Pulse Rate 97 93 92 Respiratory Rate 16 20 16 Blood Pressure 118/70 110/56 L Pulse Oximetry 95 94 93 Oxygen Delivery Room Air Fraction of Inspired Oxygen 21 05/14/22 20:32 05/14/22 20:00 05/14/22 20:42 Temperature Pulse Rate 92 79 93 Respiratory Rate 16 16 Blood Pressure Pulse Oximetry Oxygen Delivery Fraction of Inspired Oxygen 05/15/22 00:04 05/15/22 00:00 05/15/22 04:00
--- NOTE | 2022-05-15 12:17 | PM.PNCARD ---
Progress Note: A&P Assessment and Plan (1) Elevated troponin: Code(s): R77.8 - Other specified abnormalities of plasma proteins <Jessica Diaz MICROWAVE ENGINEER-C - Last Filed: 05/15/22 12:32> Status: Acute <Jessica Diaz MICROWAVE ENGINEER-C - Last Filed: 05/15/22 12:32> (2) Sepsis: Code(s): A41.9 - Sepsis, unspecified organism <Jessica Diaz MICROWAVE ENGINEER-C - Last Filed: 05/15/22 12:32> Status: Acute <Jessica Diaz MICROWAVE ENGINEER-C - Last Filed: 05/15/22 12:32> (3) Acute UTI: Code(s): N39.0 - Urinary tract infection, site not specified <Jessica Diaz MICROWAVE ENGINEER-C - Last Filed: 05/15/22 12:32> Status: Acute <Jessica Diaz MICROWAVE ENGINEER-C - Last Filed: 05/15/22 12:32> (4) CAROLYNE (acute kidney injury): Code(s): N17.9 - Acute kidney failure, unspecified <Jessica Diaz, MICROWAVE ENGINEER-C - Last Filed: 05/15/22 12:32> Status: Acute <Jessica Diaz MICROWAVE ENGINEER-C - Last Filed: 05/15/22 12:32> Assessment and Plan: On admission, his troponins were checked and the first 2 were negative on 05/10. Troponins thereafter were mildly positive with a trend of 0.119 --> 0.089 --> 0.066 --> 0.047 --> 0.020. His initial EKGs showed sinus rhythm with LBBB. Repeat EKGs since then show sinus rhythm with a narrow QRS with T-wave inversions in the anterior leads that have remained stable on multiple repeat EKGs. TTE this admission shows LVEF 65-70%, moderately increased LV wall thickness, normal global longitudinal strain, no significant valvular disease. He did have some chest pain last night that sounds atypical, though was responsive to nitro. The idea of an outpatient stress test was discussed given mildly elevated troponins, EKG findings, intermittent LBBB, moderate coronary artery calcifications noted on CT scan. However, patient states he had a chemical stress test done ~6 months ago that by his report was negative. Will obtain these records. No need to pursue any ischemic work up during this stay. Given moderate coronary artery calcifications, recommend ASA 81mg once daily and statin. Cardiology will sign off at this time. <DOLLY Fallon - Last Filed: 05/15/22 12:32> On admission, his troponins were checked and the first 2 were negative on 05/10. Troponins thereafter were mildly positive with a trend of 0.119 --> 0.089 --> 0.066 --> 0.047 --> 0.020. His initial EKGs showed sinus rhythm with LBBB. Repeat EKGs since then show sinus rhythm with a narrow QRS with T-wave inversions in the anterior leads that have remained stable on multiple repeat EKGs. TTE this admission shows LVEF 65-70%, moderately increased LV wall thickness, normal global longitudinal strain, no significant valvular disease. He did have some chest pain last night that sounds atypical, though was responsive to nitro. The idea of an outpatient stress test was discussed given mildly elevated troponins, EKG findings, intermittent LBBB, moderate coronary artery calcifications noted on CT scan. However, patient states he had a chemical stress test done ~6 months ago that by his report was negative. Will obtain these records. No need to pursue any ischemic work up during this stay. Given moderate coronary artery calcifications, recommend ASA 81mg once daily and statin. Cardiology will sign off at this time. Attending addendum: I agree with the above documentation and plan of care. <Dionicio Collins MD - Last Filed: 05/15/22 14:11> Subjective Date/time seen: 05/15/22 12:17 Cardiology follow up for elevated troponin He reported an episode of chest pain last night when he got up to use the restroom. Pain was sharp, located in the epigastric area. He was given nitro and pain subsided. No recurrence of CP. He states he has similar CP intermittently at home. EKG did not show any acute changes. <DOLLY Fallon - Last Filed: 05/15/22 12:32> Review of Systems Review of Systems: All systems reviewed & are unrem
--- NOTE | 2022-05-15 13:05 | WPDUROPN2 ---
Progress Note: A&P Assessment and Plan (1) Bacteremia: Code(s): R78.81 - Bacteremia Status: Acute (2) Solitary right kidney: Status: Acute (3) History of bladder cancer: Code(s): Z85.51 - Personal history of malignant neoplasm of bladder Status: Acute (4) Acute pyelonephritis: Code(s): N10 - Acute pyelonephritis Status: Acute Assessment and Plan: Overall, consistent progression with exception of slight worsening of creat. and WBC's this morning. Pt. continues to feel well and have good urine output. Renal u/s over weekend shows lessened right hydronephrosis. Will continue to defer right PCN unless we see consistent regression in lab work or clinical status. Subjective Subjective Date/Time Seen: 05/15/22 13:00 No complaints Review of Systems Cardiovascular: Cardiovascular: Denies chest pain, Denies lightheadedness, Denies palpitations and Denies dyspnea Respiratory: Respiratory: Denies dyspnea Gastrointestinal: Gastrointestinal: Denies diarrhea, Denies nausea and Denies vomiting Genitourinary: Genitourinary: Denies hematuria and Denies dysuria Endocrine: Endocrine: Denies palpitations Exam Const: General: no acute distress Resp: Effort & Inspection: normal respiratory effort GI: Inspection: non-distended GI Palp: No abdominal tenderness and No Guarding due to palpation present (GI) Auscultation: normal bowel sounds Objective Data Vital Signs Vital Signs: Vital Signs - 24 hr 05/14/22 15:50 05/14/22 15:58 05/14/22 16:00 Temperature Pulse Rate 83 80 82 Respiratory Rate 14 14 Blood Pressure Pulse Oximetry Oxygen Delivery Fraction of Inspired Oxygen 05/14/22 16:15 05/14/22 18:40 05/14/22 18:55 Temperature 98.2 F Pulse Rate 89 88 97 Respiratory Rate 16 16 16 Blood Pressure 125/60 112/67 118/70 Pulse Oximetry 92 95 Oxygen Delivery Fraction of Inspired Oxygen 05/14/22 20:27 05/14/22 20:32 05/14/22 20:32 Temperature 98 F Pulse Rate 93 92 92 Respiratory Rate 20 16 16 Blood Pressure 110/56 L Pulse Oximetry 94 93 Oxygen Delivery Room Air Fraction of Inspired Oxygen 21 05/14/22 20:00 05/14/22 20:42 05/15/22 00:04 Temperature Pulse Rate 79 93 82 Respiratory Rate 16 16 Blood Pressure Pulse Oximetry Oxygen Delivery Fraction of Inspired Oxygen 05/15/22 00:00 05/15/22 04:00 05/15/22 04:13 Temperature Pulse Rate 82 76 77 Respiratory Rate 18 Blood Pressure Pulse Oximetry Oxygen Delivery Fraction of Inspired Oxygen 05/15/22 04:48 05/15/22 04:00 05/15/22 07:43 Temperature 98.3 F Pulse Rate 80 88 Respiratory Rate 18 20 Blood Pressure 99/45 L Pulse Oximetry 92 96 Oxygen Delivery Room Air Fraction of Inspired Oxygen 05/15/22 07:43 05/15/22 07:55 05/15/22 08:30 Temperature Pulse Rate 82 82 93 Respiratory Rate 18 16 Blood Pressure Pulse Oximetry Oxygen Delivery Fraction of Inspired Oxygen 05/15/22 12:00 Temperature Pulse Rate 97 Respiratory Rate Blood Pressure Pulse Oximetry Oxygen Delivery Fraction of Inspired Oxygen Intake/Output Intake/Output: Intake & Output 05/12/22 05/13/22 05/14/22 05/15/22 23:59 23:59 23:59 23:59 Intake Total 2070 2640 640 600 Output Total 3350 3400 1775 [facility]1280 [phone] Meds/Results Medications: Active Medications Generic Name Dose Route Start Last Admin Trade Name Freq PRN Reason Stop Dose Admin Acetaminophen 650 mg 05/14/22 05:39 05/14/22 06:31 Acetaminophen 325 Mg Tablet PO 650 mg Q6H PRN Administration Mild Pain (1-3) or Fever Albuterol 2.5 mg 05/11/22 04:00 05/15/22 07:43 Albuterol Sulfate Neb 2.5 Mg/3 Ml Inh INHALATION 2.5 mg Q4HRT ONDINA Administration Allopurinol 200 mg 05/11/22 08:00 05/15/22 08:24 Allopurinol 100 Mg Tablet PO 200 mg DAILY@0800 [facility] Administration Amlodipine Besylate 5 mg 05/11
--- NOTE | 2022-05-15 14:44 | PM.TDS ---
Transfer Discharge Sum: Prov Provider Date of admission: 05/10/22 20:01 Primary care physician: Kelly Marte, Admitting clinician: Renaldo Cortes MD Consults: 05/11/22 Consult to Physician Routine Comment: spoke w office @ [phone] (, ) Consulting Provider: Chance Vences call or contact centre team leader/MD group to consult: urology Reason for consultation: carolyne w/uti concerning for obstructive uropathy Has provider been notified: Yes 05/13/22 Consult to Physician Routine Comment: Consulting Provider: Manoj Berumen call or contact centre team leader/MD group to consult: cardiology Reason for consultation: stress test? abnormal ECG + stephania trop Has provider been notified: Yes DS: Admitting Diagnosis Discharge Date 05/15/2022 Admitting Diagnosis Fevers and chills DS: Discharge Diagnosis Discharge Diagnosis (1) Acute UTI: Code(s): N39.0 - Urinary tract infection, site not specified Status: Acute Assessment and Plan: Urine culture showing gram-negative bacilli greater than 100,000 CFU, enterobacter cloacae complex, sens to cipro, watch QT closely, IV Cipro started on May 11, 2022 (2) Bacteremia: Code(s): R78.81 - Bacteremia Status: Acute Assessment and Plan: blood cx positive for enterobacter cloacae complex, sens to cipro repeat bld cx NGTD worsening leukocytosis, concerning for obstructive uropathy not completely resolved, may need nephrostomy tube, defer to urology recs (3) CAROLYNE (acute kidney injury): Code(s): N17.9 - Acute kidney failure, unspecified Status: Acute Assessment and Plan: Worsening today, appreciate urology consultation Patient likely has partial right ureter obstruction, but since he is improving, urology would like to hold off on nephrostomy tube, will defer to outpatient management if he continues to improve, monitor (4) Elevated troponin: Code(s): R77.8 - Other specified abnormalities of plasma proteins Status: Acute Assessment and Plan: EKG with minimal acute changes, troponin resolved, concern for possible underlying cardiac etiology? Echo from May 11 showed an EF of 65-70%, abnormal diastolic function, no significant valvular abnormalities, no pulmonary hypertension noted Cardiology consult appreciated, outpatient stress test being planned (5) Morbid obesity with BMI of 45.0-49.9, adult: Code(s): E66.01 - Morbid (severe) obesity due to excess calories; Z68.42 - Body mass index [BMI] 45.0-49.9, adult Status: Acute Assessment and Plan: Lifestyle and diet modifications (6) Depression with anxiety: Code(s): F41.8 - Other specified anxiety disorders Status: Acute Assessment and Plan: cont prozac 20 mg daily, which he was on previously, and ativan as needed Plan DVT prophylaxis with heparin GI prophylaxis not indicated Code status full code Transfer Discharge Sum: Med Medications Active and Home Medications: Home Medications Cranberry Plus Vitamin C 450 mg PO DAILY 05/11/22 [History Confirmed 05/11/22] allopurinol 100 mg tablet 200 mg PO DAILY 05/11/22 [History Confirmed 05/11/22] amlodipine 5 mg tablet 5 mg PO DAILY 05/11/22 [History Confirmed 05/11/22] aspirin 81 mg capsule 81 mg PO DAILY 05/11/22 [History Confirmed 05/11/22] atorvastatin 10 mg tablet 10 mg PO DAILY 05/11/22 [History Confirmed 05/11/22] calcitriol 0.25 mcg capsule 0.25 mcg PO DAILY 05/11/22 [History Confirmed 05/11/22] calcium citrate 200 mg calcium-vitamin D3 6.25 mcg (250 unit) tablet (Citracal-D3 Petites) 1 tablet PO DAILY 05/11/22 [History Confirmed 05/11/22] cholecalciferol (vitamin D3) 50 mcg (2,000 unit) capsule (Vitamin D3) 50 mcg PO DAILY 05/11/22 [History Confirmed 05/11/22] fexofenadine 180 mg tablet 180 mg PO DAILY 05/11/22 [History Confirmed 05/11/22] oxycodone 5 mg tablet 5 mg PO BID 05/11/22 [History Confirmed 05/11/22] oxycodone myristate 13.5 mg capsule sprinkle extend release 12hr(DON'T CRUSH) (Xtampza
== END 2022-05-15 19:20 | disposition short-term general hospital (02) | DRG 690 ==
LOC: ANHED 21:00 → ANH3MEDSUR 22:03 → ANHIMU 05-11 03:44 → ANH2MED 05-14 11:50
PROVIDERS: Emergency Medicine; Physician Assistant; Urology; Admitting Provider Internal Medicine; Emergency Provider Emergency Medicine; PCP Internal Medicine; Visit Provider Student in an Organized Health Care Education/Training Program
PROC: 0TJ98ZZ Inspection of Ureter, Via Natural or Artificial Opening Endoscopic (ICD-10-PCS; CPT 52352; principal; 2022-05-11 13:00)
DX: N13.6 Pyonephrosis (principal); R78.81 Bacteremia; Z68.41 Body mass index [BMI] 40.0-44.9, adult; N17.9 Acute kidney failure, unspecified; B96.89 Other specified bacterial agents as the cause of diseases classified elsewhere; Z20.822 Contact with and (suspected) exposure to COVID-19; E66.01 Morbid (severe) obesity due to excess calories; F41.8 Other specified anxiety disorders; E78.5 Hyperlipidemia, unspecified; I10 Essential (primary) hypertension; G25.81 Restless legs syndrome; Z85.51 Personal history of malignant neoplasm of bladder; Z85.528 Personal history of other malignant neoplasm of kidney; Z87.891 Personal history of nicotine dependence
CPT/HCPCS: 36415; 71045; 71250; 74176; 74420; 76775; 80048; 80053; 81001; 82550; 83690; 83735; 83880; 84484; 85025; 85027; 85610; 85730; 87040; 87077; 87086; 87088; 87186; 87636; 93005; 94640; 96365; 96375; 99285; A9270; C1769; C8929; J0131; J0330; J0696; J0744; J1100; J1644; J2060; J2405; J2704; J3010; J7120; Q9957

== ENCOUNTER 2024-11-02 16:24 | Inpatient (IN) | payer MEDICARE, SELFPAY ==
[2024-11-02] VITALS (18 sets, daily range): BP systolic 103–154; BP diastolic 51–77; PULSE 81–139; RESP 6–35; TEMP 36.4–37.3; O2SAT 93–98; BMI 44.3
--- NOTE | ~2024-11-02 | CT_ITS ---
EXAMINATION: CT abdomen pelvis wo con DATE: 11/02/2024 17:25 INDICATION: Right flank pain TECHNIQUE: Computed tomography (CT) of the abdomen and pelvis was performed without intravenous contr ast. Automated exposure control and iterative reconstruction technique were employed. The dose-length product was 1198.29 mGy-cm. COMPARISON: 05/10/2022. FINDINGS: Lower thorax: Coronary artery calcifications. Trace pericardial fluid. Left lower lobe hamartoma. Tra ce bilateral pleural fluid collections. Fat-containing hernia at the diaphragmatic hiatus. Liver: Overall enlarged, with diffuse low-density parenchyma. The right liver lobe appears small. Biliary/Gallbladder: Gallbladder is normal. No bile duct dilation. Pancreas: No mass or duct dilation. Spleen: Normal. Adrenals: Left adrenal gland surgical absent. Normal right adrenal gland. Kidneys: Status post left nephrectomy. Status post right ileal conduit. Nonobstructing 6 mm calcifica tion in the right lower pole. Mild right hydronephrosis and periureteral stranding. Moderate right pe rinephric stranding. GI tract: No small or large bowel dilation. Normal appendix. Diverticulosis without diverticulitis. Mesentery/Peritoneum: No ascites, mass, or free air. Retroperitoneum: No mass. Pelvis: Surgically absent bladder and prostate. Soft Tissues: Soft tissues and body wall unremarkable. Bones: No acute osseous finding. Uncomplicated appearing posterior L3-4 fusion hardware. Right poste rior stimulator, leads terminating in the thoracic canal. IMPRESSION: Trace pericardial effusion. Trace bilateral pleural effusions. Hepatomegaly with steatosis. Status post right ileal conduit. Moderate right perinephric stranding, mild right hydronephrosis and periureteral stranding, may represent anastomotic stricture and/or ascending infection. Reviewed, dictated and finalized at location K. IMPRESSION: Trace pericardial effusion. Trace bilateral pleural effusions. Hepatomegaly with steatosis. Status post right ileal conduit. Moderate right perinephric stranding, mild rig ht hydronephrosis and periureteral stranding, may represent anastomotic strictu re and/or ascending infection.
--- NOTE | ~2024-11-02 | XR_ITS ---
EXAMINATION: XR chest 2V Exam Date/Time: 11/02/2024 17:00 CDT HISTORY: sob Comparison: 05/10/2022. RESULT: Lines, tubes, and devices: Surgical clips over the right lower neck. Stimulator leads project over t he lower thoracic spine. Lungs and pleura: No focal consolidation, pleural effusion, or pneumothorax. Stable left lower lobe hamartoma. Cardiomediastinal silhouette: Stable. Other: No acute osseous or upper abdominal finding. IMPRESSION: No acute cardiopulmonary process. Reviewed, dictated and finalized at location K.
--- OUTSIDE RECORDS SUMMARY | 2024-11-02 16:26 | XMS_ITS | Encounter Summary ---
Author Organization [facility] Address [address] [place] [id number] Phone Care Team Providers Care Online Marketer Name Role Phone Kelly Marte MD Primary Care Provider Reason for Visit * Reason Comments Med Refill Encounter Details Date Type Department Care Team (Late st Contact Info) Description 06/30/2020 Refill [facility] [address] [place] [id number] Vandana Malone PA [address] [place] [id number] Social History Tobacco Use Types Packs/Day Years Used Date Smoking Tobacco: Every Day Smokeless Tobacco: Current Sex and Gender Information Value Date Recorded Sex Assigned at Not on file Legal Sex Male 9:25 AM MST Gender Identity Not on file Sexual Orientation Not on file documented as of this encounter Plan of Treatment Upcoming Encounters Date Type Department Care Team (Late st Contact Info) Description 03/04/2025 10:20 AM TRANSPORTATION ASSISTANT Office Visit [facility] [address] [place] [id number] Vandana Malone PA [address] [place] [phone] 06/30/2025 1:20 PM TRANSPORTATION ASSISTANT Office Visit [facility] [address] [place] [id number] Luke Wilkins MD [address] [place] [address] documented as of this encounter Visit Diagnoses Not on filedocumented in this encounter Care Teams Online Marketer Relationship Specialty Start Date End Date Kelly Marte MD [address] [facility] [address] [place] [id number] PCP - General Internal Medicine 09/05/18 documented as of this encounter
--- OUTSIDE RECORDS SUMMARY | 2024-11-02 16:26 | XMS_ITS ---
Author Organization [facility] Address [address] [place] [address] Phone Care Team Providers Care Loom Stop Checker Name Role Phone Kelly Marte MD Primary Care Provider [phone] Active Problems Problem Noted Date Diagnosed Date Bladder cancer 11/12/2014 Current Treatment and Therapy Plans No current plan information found. Past Treatment and Therapy Plans No past plan information found. Lifetime Dose Tracking * Chemical Lifetime Dose Automatic Entry Manual Entr y Effective Dose 36.2 mSv 36.2 mSv 0 mSv Total DLP 2,579.57 DLP 2,579.57 DLP 0 DLP CTDIvol Max 55.76 mGy 55.76 mGy 0 mGy CTDIvol Min 0.14 mGy 0.14 mGy 0 mGy
--- OUTSIDE RECORDS SUMMARY | 2024-11-02 16:26 | XMS_ITS | Clinical Summary ---
Author Organization [facility] Address [address] [place] [id number] Phone Care Team Providers Care Director Of Women'S Services Name Role Phone Kelly Marte MD Primary Care Provider [phone] Allergies Active Allergy Reactions Criticality Noted Date Comments Azithromycin Other (see comments) 11/04/2014 breathing Sulfamethoxazole-Trime thoprim 06/21/2021 Rash in upper mouth Cinoxate Other (see comments) Low 09/16/2021 Doxycycline 04/03/2019 Duloxetine 04/03/2019 Duloxetine Hcl Anaphylaxis High 07/01/2007 Homosalate Other (see comments) Low 09/16/2021 Hydrochlorothiazide-Tr iamterene 04/03/2019 Oxybenzone 04/03/2019 Padimate O 04/03/2019 Penicillin G 09/10/2018 Penicillins Other (see comments),Shortness of breath High 07/22/2010 Throat swells But tolerates cephalosproin Not angioedema Breathing Throat swells But tolerates cephalosproin Not angioedema Sulfa Antibiotics Titanium Dioxide 04/03/2019 Triamterene fatigue Low 09/16/2021 Medications atorvastatin (LIPITOR) 10 MG tablet qhs 0 7 Active Additional Information Patient taking differently: 10 mgOralDaily, Reported on 10/01/2024 B complex-vitamin C-folic acid (NEPHROCAPS) 1 MG capsule qd 0 8 Active sertraline (ZOLOFT) 100 MG tablet qd 0 7 Active aspirin (ASPIRIN LOW STRENGTH) 81 MG chewable tablet qd 0 07/03/201 7 Active cholecalciferol (VITAMIN D-3) 25 MCG (1000 UT) capsule Take 2,000 Units by mouth 1 (one) time each day Active calcium citrate-vitamin D (CITRACAL+D) 315-200 MG-UNIT per tablet Take 1 tablet by mouth in the morning and 1 tablet in the evening. Active acetaminophen (TYLENOL) 500 MG tablet Take 1-2 tablets by mouth every 6 (six) hours if needed for mild pain Active pregabalin (LYRICA) 150 MG capsule Take 150 mg by mouth in the morning and 150 mg in the evening. 1 Active rOPINIRole (REQUIP) 2 MG tablet Take 2 mg by mouth 1 (one) time each day 1 Active oxyCODONE (ROXICODONE) 5 MG immediate release tablet Take 5 mg by mouth in the morning and 5 mg in the evening. 1 Active traZODone (DESYREL) 100 MG tablet Take 100 mg by mouth every night 2 Active amLODIPine (NORVASC) 5 MG tablet TAKE 1 TABLET BY MOUTH EVERY DAY 270 tablet 2 Active Additional Information Patient taking differently: 10 mg Oral Daily, Reported on 10/01/2024 ketoconazole (NIZORAL) 2 % cream Apply topically if needed Active oxyCODONE ER (Xtampza ER) 13.5 MG capsule extended-releas e 12 hour Take 13.5 mg by mouth every 12 (twelve) hours Active Umeclidinium Walton (Incruse Ellipta) 62.5 MCG/ACT aerosol powder Inhale 1 puff in the morning. 3 Active fexofenadine (AIDA) 180 MG tablet Take 180 mg by mouth 1 (one) time each day Active calcitriol (ROCALTROL) 0.25 MCG capsule TAKE 1 CAPSULE BY MOUTH EVERY DAY 90 capsule 3 4 Active torsemide (DEMADEX) 20 MG tablet TAKE 1 TABLET(20 MG) BY MOUTH DAILY 30 tablet 3 4 Active Additional Information Patient taking differently: 10 mg, Reported on 10/01/2024 allopurinol (ZYLOPRIM) 100 MG tablet TAKE 2 TABLETS BY MOUTH EVERY DAY 360 tablet 3 5 Active cefpodoxime (VANTIN) 100 MG tablet Take 1 tablet (100 mg total) by mouth in the morning and 1 tablet (100 mg total) in the evening. Do all this for 7 days. 14 tablet 5 10/09/19 25 Active Problems Problem Noted Date Diagnosed Date BMI 40 to 44.9 02/06/2024 Gynecomastia 11/29/2020 Chronic kidney disease stage 4 02/04/2020 Gout associated problem 02/04/2020 Stage 3b chronic kidney disease 10/30/2016 Essential (primary) hypertension 10/30/2016 Hyperlipidemia 10/30/2016 Malignant neoplasm of left kidney, except renal pelvis 10/30/2016 Malignant neoplasm of bladder 10/30/2016 Urinary tract infection 10/30/2016 Other disorder of lung 10/30/2016 Dorsalgia 10/30/2016 Other chronic pain 10/30/2016 Primary hyperparathyroidism 10/30/2016 Primary hyperparathyroidism 10/30/2016 Encounters Date Type Department Care Team Description 10/01/2024 10:00 AM CDT Office Visit [facility] [address] [place] [address] Vandana Malone PA Stage 3b chronic kidney disease ([facility]) (Primary Dx); Essential (primary) hypertension 09/17/2024 Refill [facility] [address] [place] [address] Vandana Malone PA 08/04/2024 Orders Only [facility] [address] [place] [address] Marcy Ivan MA Essential (primary) hypertension (Primary Dx); Urinary tract infection, not otherwise specified; Chronic kidney disease stage 3 (CMS-HCC) from Last 3 Months Immunizations Immunization Administration Dates Next Due Influenza (IM) Preservative Free 01/27/2016,1006/2013 Influenza Recombinant Rebecca valent Injectable Preservative Free 02/09/2021,03/29/2020,03/29/2020 Influenza, Injectable, Quadr ivalent, Preservative Free 01/27/2016 Influenza, Recombinant, Inj, Preservative Free 01/28/2024 Influenza, Unspecified 05/17/2022 Pfizer Sars-cov-2 Vaccination 07/13/2021, 021,12/01/2020 Tdap 02/09/2023 Family History Medical History Relation Comments Heart failure Father Kidney stone Father Cerebrovascular accident Mother Diabetes mellitus Mother Dyslipidemia Mother Heart disease Mother Heart failure Mother Hypertensive disorder Mother Kidney stone Mother Kidney stone Sibling Relation Status Comments Father Mother Sibling Social History Tobacco Use Types Packs/Day Years Used Date Smoking Tobacco: Every Day Smokeless Tobacco: Current Tobacco Cessation:Ready to Q uit: Not Asked; Counseling Given: Not Answered Sex and Gender Information Value Date Recorded Sex Assigned at Not on file Legal Sex Male 9:25 AM [facility] Gender Identity Not on file Sexual Orientation Not on file Last Filed Vital Signs Vital Sign Reading Time Taken Comments Blood Pressure 132/80 10/01/2024 9:49 AM CDT Pulse 80 10/01/2024 9:49 AM CDT Temperature 36.4 C (97.6 F) 03/02/2021 9:58 AM CDT Respiratory Rate - - Oxygen Saturation - - Inhaled Oxygen Concentration - - Weight 147 kg (324 lb) 10/01/2024 9:49 AM CDT Height 182.9 cm (6') 10/01/2024 9:49 AM CDT Body Mass Index 43.94 10/01/2024 9:49 AM CDT Plan of Treatment Upcoming Encounters Date Type Department Care Team (Late st Contact Info) Description 03/04/2025 10:20 AM [employer] Office Visit [facility] [address] [place] [address] Vandana Malone PA [address] [address] 06/30/2025 1:20 PM [employer] Office Visit [facility] [address] [place] [address] Luke Wilkins MD [address] [address] Health Maintenance Due Date Last Done Comments Pneumococcal PPSV23/PCV13 65 + Years / High and Highest Risk (1 of 5 - PCV) 10/12/1969 COVID-19 Vaccine (2023-2 5 season) 2023 07/13/2021, 12/22/2020, 12/01/2020 Influenza Vaccine (#1) 2024 3, 02/09/2021, 03/29/2020, Additional history exists Procedures Procedure Name Priority Date/Time Associated Diagnosis Comments TOTAL PROTEIN W/ CREATININE, URINE, RANDOM Routine 09/26/2024 8:34 AM CDT Essential (primary) hypertension Urinary tract infection, not otherwise specified Chronic kidney disease stage 3 (CMS-HCC) URINALYSIS, COMPLETE, W/ REFLEX TO CULTURE Routine 09/26/2024 8:34 AM CDT Essential (primary) hypertension Urinary tract infection, not otherwise specified Chronic kidney disease stage 3 (CMS-HCC) PTH INTACT W/O CALCIUM, SERUM Routine 09/26/2024 8:34 AM CDT Essential (primary) hypertension Urinary tract infection, not otherwise specified Chronic kidney disease stage 3 (CMS-HCC) FERRITIN, SERUM Routine 09/26/2024 8:34 AM CDT Essential (primary) hypertension Urinary tract infection, not otherwise specified Chronic kidney disease stage 3 (CMS-HCC) IRON AND TIBC, SERUM Routine 09/26/2024 8:34 AM CDT Essential (primary) hypertension Urinary tract infection, not otherwise specified Chronic kidney disease stage 3 (CMS-HCC) CBC (INCLUDES DIFFERENTIAL/PLATEL ETS) Routine 09/26/2024 8:34 AM CDT Essential (primary) hypertension Urinary tract infection, not otherwise specified Chronic kidney disease stage 3 (CMS-HCC) RENAL FUNCTION PANEL (RFP) Routine 09/26/2024 8:34 AM CDT Essential (primary) hypertension Urinary tract infection, not otherwise specified Chronic kidney disease stage 3 (CMS-HCC) from Last 3 Months Results * (ABNORMAL) Urinalysis, Complete, w/ Reflex to Culture (09/26/2024 8:34 AM CDT) Color of Urine YELLOW YELLOW [facility]) Appearance of Urine CLEAR CLEAR [facility]) Specific gravity of Urine 1.013 1.001 - 1.[address] [facility] ([facility]) pH of Urine 6.0 5.0 - 8.0 [facility]) Glucose, Urine NEGATIVE NEGATIVE [facility]) Bilirubin, total, Urine NEGATIVE NEGATIVE [facility]) Ketones, Urine NEGATIVE NEGATIVE [facility]) Hemoglobin, Urine TRACE(A) NEGATIVE [facility]) Protein, Urine TRACE(A) NEGATIVE [facility]) Nitrite, Urine POSITIVE(A) NEGATIVE [facility] ([facility]) Leukocyte esterase, Urine 2+(A) NEGATIVE [facility]) Leukocytes, Urine sediment 20-40(A) < OR = 5 /HPF [facility]) Erythrocytes, Urine sediment NONE SEEN < OR = 2 /HPF [facility]) Epithelial cells, squamous, Urine sediment NONE SEEN < OR = 5 /HPF [facility]) Bacteria, Urine sediment MANY(A) NONE SEEN /HPF [facility]) Hyaline casts, Urine sediment 0-5(A) NONE SEEN /LPF [facility]) Service comment [facility] - [facility] ([facility]) Comment: This urine was analyzed for the presence of WBC, RBC, bacteria, casts, and other formed elements. Only those elements seen were reported. Bacteria identified, Urine [facility]) Comment:CULTURE INDICATED - RESULTS TO FOLLOW Culture, Urine, Routine (A) [facility] ([facility]) Comment: CULTURE, URINE, ROUTINE Micro Number: [id number] Test Status: Final Specimen Source: Urine Specimen Quality: Adequate Result: Greater than 100,000 CFU/mL of Escherichia coli E.coli INT SULAIMAN AMOX/CLAVULANATE S 4 AMP/SULBACTAM S <=2 CEFAZOLIN NR <=4 2 CEFEPIME S <=0.12 CEFTAZIDIME S <=1 CEFTRIAXONE S <=0.25 CIPROFLOXACIN R >=4 GENTAMICIN S <=1 IMIPENEM S <=0.25 LEVOFLOXACIN R >=8 MEROPENEM S <=0.25 NITROFURANTOIN S <=16 PIP/TAZOBACTAM S <=4 TRIMETHOPRIM/SULFA S <=20 S = Susceptible I = Intermediate R = Resistant NS = Not susceptible SDD = Susceptible Dose Dependent * = Not Tested NR = Not Reported NN = See Therapy Comments THERAPY COMMENTS Note 1: For infections other than uncomplicated UTI caused by E. coli, K. pneumoniae or P. mirabilis: Cefazolin is resistant if SULAIMAN > or = 8 mcg/mL. (Distinguishing susceptible versus intermediate for isolates with SULAIMAN < or = 4 mcg/mL requires additional testing.) Note 2: For uncomplicated UTI caused by E. coli, K. pneumoniae or P. mirabilis: Cefazolin is susceptible if SULAIMAN <32 mcg/mL and predicts susceptible to the oral agents cefaclor, cefdinir, cefpodoxime, cefprozil, cefuroxime, cephalexin and loracarbef. 09/26/2024 8:34 AM CDT 09/26/2024 8:35 AM CDT Narrative [facility] [facility]) - 09/28/2024 5:48 AM CDT FASTING:YES FASTING: YES Resulting Agency Comment Performing Organization Information: Site ID: [id number] Name: [facility] Address: [address] [address] Director: Dl Chapmion Vandana MOELLER LAB BLOOD ORDERABLES Final Res ult [facility]) * (ABNORMAL) Total Protein w/ Creatinine, Urine, Random (09/26/2024 8:34 AM CDT) Creatinine, Urine 83 20 - 320 mg/dL [facility]) Protein/Creati nine, Urine 313(H) 25 - 148 mg/g creat [facility] ([facility]) Protein/Creati nine, Urine 0.313(H) 0.025 - 0.148 mg/mg creat [facility]) Protein, Urine 26(H) 5 - 25 mg/dL [facility]) Comment: Verified by repeat analysis. 09/26/2024 8:34 AM CDT 09/26/2024 8:35 AM CDT Narrative [facility] ([facility]) - 09/28/2024 5:48 AM CDT FASTING:YES FASTING: YES Resulting Agency Comment Performing Organization Information: Site ID: [id number] Name: [facility] Address: [facility] [place] [address] Director: Dl Champion Vandana MOELLER LAB URINE ORDERABLES Final Res ult [facility] ([facility]) * (ABNORMAL) CBC (includes Differential/Platelets) (09/26/2024 8:34 AM CDT) Leukocytes, Blood 12.9(H) 3.8 - 10.8 Thousand/ uL [facility] ([facility]) Erythrocytes (RBC) 4.89 4.20 - 5.80 Million/u L [facility]) Hemoglobin (HGB) 15.5 13.2 - 17.1 g/dL [facility]) Hematocrit (HCT) 47.1 38.5 - 50.0 % [facility]) MCV 96.3 80.0 - 100.0 fL [facility]) MCH 31.7 27.0 - 33.[address] [facility] ([facility]) MCHC 32.9 32.0 - 36.0 g/dL [facility]) Comment: For adults, a slight decrease in the calculated MCHC value (in the range of 30 to 32 g/dL) is most likely not clinically significant; however, it should be interpreted with caution in correlation with other red cell parameters and the patient's clinical condition. Erythrocyte Distribution Width (RDW) 14.1 11.0 - 15.0 % [facility]) Platelets, Blood 309 140 - 400 Thousand/ uL [facility]) Platelet mean volume, Blood 10.1 7.5 - 12.5 fL [facility]) Neutrophils, Blood 10,075(H) 1,500 - 7,800 cells/uL [facility]) Lymphocytes, Blood 1,780 850 - 3,900 cells/uL [facility]) Monocytes, Blood 632 200 - 950 cells/uL [facility]) Eosinophils, Blood 335 15 - 500 cells/uL [facility]) Basophils, Blood 77 0 - 200 cells/uL [facility]) Neutrophils/100 leukocytes, Blood 78.1 % [facility]) Lymphocytes/100 leukocytes, Blood 13.8 % [facility]) Monocytes/100 leukocytes, Blood 4.9 % [facility]) Eosinophils/100 leukocytes, Blood 2.6 % [facility]) Basophils/100 leukocytes, Blood 0.6 % [facility]) Blood (Blood, Venous) 09/26/2024 8:34 AM CDT 09/26/2024 8:35 AM CDT Narrative [facility] - 09/28/2024 5:48 AM CDT FASTING:YES FASTING: YES Resulting Agency Comment Performing Organization Information: Site ID: [id number] Name: [facility] Address: [address] [address] Director: Dl Champion us Vandana MOELLER LAB BLOOD ORDERABLES Final Res ult [facility] ([facility]) * (ABNORMAL) Renal Function Panel (RFP) (09/26/2024 8:34 AM CDT) Glucose, Serum/Plasma 162(H) 65 - 99 mg/dL [facility] ([facility]) Comment: Fasting reference interval For someone without known diabetes, a glucose value >125 mg/dL indicates that they may have diabetes and this should be confirmed with a follow-up test. Urea nitrogen, Serum/Plasma (BUN) 35(H) 7 - 25 mg/dL [facility] ([facility]) Creatinine, Serum/Plasma 2.26(H) 0.70 - 1.28 mg/dL [facility] ([facility]) Estimated Glomerular Filtration Rate (eGFR) 30(L) > OR = 60 mL/min/1.7 3m2 [facility] ([facility]) Urea nitrogen/Creati nine, Serum/Plasma 15 6 - 22 (calc) [facility] Sodium, Serum/Plasma 139 135 - 146 mmol/L [facility]) Potassium, Serum/Plasma 4.4 3.5 - 5.3 mmol/L [facility] ([facility]) Chloride, Serum/Plasma 101 98 - 110 mmol/L [facility] ([facility]) Carbon dioxide CO2), total, Serum/Plasma 28 20 - 32 mmol/L [facility] ([facility]) Calcium, Serum/Plasma 9.9 8.6 - 10.3 mg/dL [facility]) Phosphate, Serum/Plasma 4.1 2.1 - 4.3 mg/dL [facility] ([facility]) Albumin, Serum/Plasma 4.3 3.6 - 5.1 g/dL [facility] ([facility]) Blood (Blood, Venous) 09/26/2024 8:34 AM CDT 09/26/2024 8:35 AM CDT Narrative [facility] ([facility]) - 09/28/2024 5:48 AM CDT FASTING:YES FASTING: YES Resulting Agency Comment Performing Organization Information: Site ID: Name: [facility] Address: [address] [place] [address] Director: Dl Champion Vandana [facility] LAB BLOOD ORDERABLES Final Res ult [facility]) * Ferritin, Serum (09/26/2024 8:34 AM CDT) Ferritin, Serum/Plasma 69 24 - 380 ng/mL [facility]) Blood (Blood, Venous) 09/26/2024 8:34 AM CDT 09/26/2024 8:35 AM CDT Narrative [facility] ([facility]) - 09/28/2024 5:48 AM CDT FASTING:YES FASTING: YES Resulting Agency Comment Performing Organization Information: Site ID: [place] Name: [facility] Address: [address] [facility] [place] [address] Director: Dl Champion MD [facility] [place] LAB BLOOD ORDERABLES Final Res ult [facility] ([facility]) * Iron and TIBC, Serum (09/26/2024 8:34 AM CDT) Iron, Serum/Plasma 82 50 - 180 mcg/dL [facility] ([facility]) Iron binding capacity, Serum/Plasma 300 250 - 425 mcg/dL (calc) [facility] ([facility]) Iron saturation, Serum/Plasma 27 20 - 48 % (calc) [facility] ([facility]) Blood (Blood, Venous) 09/26/2024 8:34 AM CDT 09/26/2024 8:35 AM CDT Narrative [facility] ([facility]) - 09/28/2024 5:48 AM CDT FASTING:YES FASTING: YES Resulting Agency Comment Performing Organization Information: Site ID: [id number] Name: [facility] Address: [address] [place] [address] Director: Dl Champion MD Vandana MOELLER LAB BLOOD ORDERABLES Final Res ult Performing Organization Address City/[facility]/ZIP Co de Phone Number [facility] * (ABNORMAL) PTH Intact, Serum (09/26/2024 8:34 AM CDT) PTH, Intact, Serum/Plasma 11(L) 16 - 77 pg/mL [facility] [place] ([facility]) Comment: Interpretive Guide Intact PTH Calcium ------- Normal Parathyroid Normal Normal Hypoparathyroidism Low or Low Normal Low Hyperparathyroidism Primary Normal or High High Secondary High Normal or Low Tertiary High High Non-Parathyroid Hypercalcemia Low or Low Normal High Blood (Blood, Venous) 09/26/2024 8:34 AM CDT 09/26/2024 8:35 AM CDT Narrative [facility] ([facility]) - 09/28/2024 5:48 AM CDT FASTING:YES FASTING: YES Resulting Agency Comment Performing Organization Information: Site ID: [id number] Name: [facility] Address: [address] [place] [address] Director: Dl Champion MD Vandana MOELLER LAB BLOOD ORDERABLES Final Res ult [facility] ([facility]) from Last 3 Months Insurance MEDICARE [facility] Care Teams Director Of Women'S Services Relationship Specialty Start Date End Date Kelly Marte MD [facility] [phone] PCP - General Internal Medicine 09/05/18
--- OUTSIDE RECORDS SUMMARY | 2024-11-02 16:26 | XMS_ITS | Encounter Summary ---
Author Organization [employer] Address [address] [place] [address] Care Team Providers Care Director Transportation Name Role Phone Kelly Marte MD Primary Care Provider [phone] Encounter Details Date Type Department Care Team (Latest Contact Info) Description 06/19/2000 Outpatient Historical [facility] Sky French MD [address] [facility] [address] [place] [id number] Other specified complications (Primary Dx) Social History Tobacco Use Types Packs/Day Years Used Date Smoking Tobacco: Never Assessed Sex and Gender Information Value Date Recorded Sex Assigned at Not on file Legal Sex Male 3:26 AM [employer] Gender Identity Not on file Sexual Orientation Not on file documented as of this encounter Plan of Treatment Not on file documented as of this encounter Visit Diagnoses Diagnosis Other specified complications- Primary documented in this encounter Care Teams Director Transportation Relationship Specialty Start Date End Date Kelly Marte MD [address] [place] [address] [address] [place] [address] PCP - General 06/19/00 documented as of this encounter
--- OUTSIDE RECORDS SUMMARY | 2024-11-02 16:26 | XMS_ITS | Clinical Summary ---
Author Organization [facility] Address [address] [place] [address] Care Team Providers Care Salvage Laborer Name Role Phone Kelly Marte MD Primary Care Provider [phone] Allergies Active Allergy Reactions Criticality Noted Date Comments Azithromycin Anaphylaxis High 11/04/2014 breathing breathing Cephalexin Shortness of breath High Cinoxate Other (See comments) Low 09/16/2021 Doxycycline Anaphylaxis High 08/17/2004 Duloxetine Anaphylaxis High 07/01/2007 Duloxetine Hcl Anaphylaxis High 07/01/2007 Erythromycin Shortness of breath High Homosalate Other (See comments) Low 09/16/2021 Hydrochlorothiazide Fatigue Low 05/09/2022 Octinoxate Other (See comments) Low 09/16/2021 Oxybenzone Other (See comments) Low 04/03/2019 Padimate O Other (See comments) Low 04/03/2019 Penicillins Anaphylaxis,Shortne ss of breath High 08/17/2004 Throat swells But tolerates cephalosproin Not angioedema Breathing Sulfa (Sulfonamide Antibiotics) Nausea only Low 09/16/2021 Sulfacetamide Other (See comments) Low 02/24/2009 Sulfamethoxazole-Trimethopr im Other (See comments) Low 06/21/2021 Rash in upper mouth Titanium Dioxide Other (See comments) Low 04/03/2019 Triamterene Fatigue Low 09/16/2021 Medications allopurinol (ZYLOPRIM) 100 mg tabletIndication s:prevention of acute gout attack Take 1 tablet (100 mg total) by mouth every morning 8 Active aspirin 81 mg chewable tabletIndication s:heart health Take 1 tablet (81 mg total) by mouth every morning 7 Active atorvastatin (LIPITOR) 10 mg tabletIndication s:hyperlipidemia Take 1 tablet (10 mg total) by mouth every morning Active calcitRIOL (ROCALTROL) 0.25 mcg capsuleIndicatio ns:hypocalcemia Take 1 capsule (0.25 mcg total) by mouth every morning 8 Active calcium carbonate (TUMS) 500 mg calcium (1,250 mg) chewable tabletIndication s:hypocalcemia Take 1 tablet (1,250 mg total) by mouth daily as needed for heartburn or indigestion 7 Active sertraline (ZOLOFT) 100 mg tabletIndication s:Anxiety with Depression Take 1 tablet (100 mg total) by mouth every morning 8 Active rOPINIRole (REQUIP) 1 mg tabletIndication s:Restless Legs Syndrome Take 1 tablet (1 mg total) by mouth nightly 8 Active fexofenadine (AIDA) 180 mg tabletIndication s:Seasonal Allergic Rhinitis Take 1 tablet (180 mg total) by mouth every morning Active traZODone (DESYREL) 100 mg tabletIndication s:insomnia associated with depression Take 1 tablet (100 mg total) by mouth nightly 2 Active torsemide (DEMADEX) 20 mg tabletIndication s:Edema Take 1 tablet (20 mg total) by mouth every morning 2 Active Xtampza ER 13.5 mg capsule,sprinkle ,ER 12hr tmprrIndications :severe chronic pain requiring long-term opioid treatment Take 1 capsule by mouth every 12 (twelve) hours 2 Active oxyCODONE (ROXICODONE) 5 mg immediate release tabletIndication s:Pain Take 1 tablet (5 mg total) by mouth 2 (two) times a day 2 Active naloxone (Narcan) 4 mg/actuation spray,non-aeroso l Administer 0.1 mL into affected nostril(s) Active Nystop powderIndication s:cutaneous candidiasis Apply topically daily as needed 2 Active tiotropium bromide (Spiriva Respimat) 2.5 mcg/actuation inhalerIndicatio ns:Bronchospasm Prevention with COPD Inhale 1 puff 2 (two) times a day Active amLODIPine (NORVASC) 10 mg tabletIndication s:hypertension Take 1 tablet (10 mg total) by mouth every morning 3 Active pregabalin (LYRICA) 150 mg capsuleIndicatio ns:nerve pain Take 1 capsule (150 mg total) by mouth 2 (two) times a day 3 Active cranberry fruit extract (CRANBERRY CONCENTRATE ORAL)Indications :supplement Take 450 mg by mouth 2 (two) times a day Active [id number] maritza ps-om3-dha 35-1-200 mg capsuleIndicatio ns:Mineral Deficiency Prevention,Vitam in Deficiency Prevention Take 1 tablet by mouth every morning NEPHRO-Vit Active nitrofurantoin monohydrate (MACROBID) 100 mg capsule TAKE 1 CAPSULE BY MOUTH EVERY MORNING AND 1 CAPSULE EVERY EVENING 3 Active rOPINIRole (REQUIP) 2 mg tablet Take 1 tablet (2 mg total) by mouth daily 3 Active Incruse Ellipta 62.5 mcg/actuation blister with device INHALE 1 PUFF BY MOUTH AT THE SAME TIME EVERY DAY 3 Active cranberry extract-vitamin C 250-60 mg capsule Take 2 capsules by mouth daily Active mupirocin (BACTROBAN) 2 % ointmentIndicati ons:Open wound of right hip, initial encounter Apply topically 2 (two) times a day 22 g 4 Active Active Problems Problem Noted Date Diagnosed Date Arthritis of carpometacarpal (CMC) joint of left thumb 03/26/2023 Centriacinar emphysema 11/01/2021 Chronic kidney disease, stage 4 (severe) 017 Congestion of paranasal sinus 02/25/2015 Malignant neoplasm of kidney 02/25/2015 Malignant neoplasm of urinary bladder 02/25/2015 Chronic pain 02/25/2015 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 Hypertension 02/25/2015 Obstructive sleep apnea syndrome in adult 2014 Central sleep disordered breathing 02/25/2015 Osteoarthritis of knee 06/20/2011 Knee pain 06/19/2011 Surgical History Surgery Date Site/Laterality Comments KNEE SURGERY 04/30/2009 - 04/29/[address] Hoff at [place] unknown date, total knee BLADDER SURGERY 04/30/2013 - 04/29/2014 cystoscopy WRIST FRACTURE SURGERY Left unknown date BACK SURGERY 04/30/2020 - 04/29/2021 nerve stimulator and fusions hardware LAPAROSCOPIC NEPHRECTOMY 04/30/2013 - 04/29/2014 Left BLADDER TUMOR EXCISION 04/30/2014 - 04/29/2015 CYSTECTOMY 04/30/2014 - 04/29/2015 Medical History Medical History Date Comments Allergic rhinitis Anxiety Arthritis Cancer (HCC) bladder and kidn ey Depression Gout Headache Hypertension Chronic kidney disease Kidney stone Peripheral neuropathy Obesity Pneumonia Seizures (HCC) 1 episode 20 yea rs prior, idiopathic Urinary tract infection Chronic pain low back Dyslipidemia RLS (restless legs syndrome) Insomnia Neuropathy akin LE Emphysema lung (HCC) Family History Medical History Relation Name Comments Insomnia Brother Family history of insomnia - (Added by TW Conv) Arthritis Father Heart disease Father Arthritis Mother Diabetes Mother Heart disease Mother Hypertension Mother Stroke Mother Anesthesia problems Neg Hx Relation Name Status Comments Brother Father Mother Social History Tobacco Use Types Packs/Day Years Used Date Smoking Tobacco: Former Cigarettes 2014 Vaping Started: 03/29 Smokeless Tobacco: Never Tobacco Cessation:Counseling Given: Not Answered Alcohol Use Standard Drinks/Week Comments No 0 (1 standard drink = 0.6 oz pur e alcohol) AUDIT-C Answer Date Recorded Q1: How often do you have a drink containing alcohol? Never 04/26/2023 Q2: How many drinks containi ng alcohol do you have on a typical day when you are drinking? Patient does not drink Q3: How often do you have si x or more drinks on one occasion? Never 04/26/2023 Personal Safety Answer Date Recorded Have you ever been in or are you currently in a harmful physical or emotional relationship or is someone making you feel afraid or unsafe? Denies 04/26/2023 Sex and Gender Information Value Date Recorded Sex Assigned at Not on file Legal Sex Male 11:43 PM BLUING OVEN TENDER Gender Identity Male 03/07/2024 6:26 AM BLUING OVEN TENDER Sexual Orientation Straight 03/07/2024 6: 26 AM BLUING OVEN TENDER Obstetrics History Last Filed Vital Signs Vital Sign Reading Time Taken Comments Blood Pressure 135/80 03/07/2024 11:33 AM BLUING OVEN TENDER Pulse 98 03/07/2024 11:33 AM BLUING OVEN TENDER Temperature 36.4 C (97.6 F) 03/07/2024 11:33 AM BLUING OVEN TENDER Respiratory Rate 20 03/07/2024 11:3 3 AM BLUING OVEN TENDER Oxygen Saturation 100% 03/07/2024 11: 33 AM BLUING OVEN TENDER Inhaled Oxygen Concentration - - Weight 147.3 kg (324 lb 11.2 oz) 2023 11:33 AM BLUING OVEN TENDER Height 182.9 cm (6') 03/07/2024 11:33 AM BLUING OVEN TENDER Body Mass Index 44.04 03/07/2024 11:33 AM BLUING OVEN TENDER Plan of Treatment Health Maintenance Due Date Last Done Comments Colon Cancer Screening-Colonoscopy 1950 Depression Screening 1950 Hepatitis C Screening 1952 Hepatitis B Screening 1970 Lung Cancer Screening 2002 Zoster Vaccine (1 of 2) 2002 Abdominal Aortic Aneurysm (A AA) Screen 2017 03/17/2016, 12/30/2014 Well Visit 65+ 2017 Pneumococcal vaccine 65+ (2 of 2 - PCV) 11/27/2019 11/26/2018 Covid-19 Vaccine (4 - 2023-2 5 season) 2023 07/13/2021, 07/13/2021, 12/22/2020, Additional history exists Fall Risk Assessment 04/26/2024 04/26/2023 DTaP/Tdap/Td Vaccine (2 - Td or Tdap) 02/09/2033 02/09/2023 Influenza Vaccine Completed 01/28/2024, , 02/09/2021, Additional history exists Medical Devices Implanted Type Area Casino Floor Walker Device Identifier Shelf Expiration Date Model / Serial / Lot [employer] Internalbrace Kit Hand Wrist Set Implant Ligament Augmentation Ar-8978-Cp - [id number] Implanted:Qty: 1 on 04/26/2023 by Alfredo Steven MD at [facility] Other - see comments Left: Thumb [employer] [id number] 10/28/2027 [id number]-8978- CP / / [id number] Nerve Stimulator Back Description:2020 [place] [address] MEDICARE [facility]LY [facility] [place] [address] MEDICARE [facility] MEDICARE SUPPLEMENT Care Teams Salvage Laborer Relationship Specialty Start Date End Date Kelly Marte MD [address] [place] [id number] PCP - General Internal Medicine 01/03/18
--- OUTSIDE RECORDS SUMMARY | 2024-11-02 16:26 | XMS_ITS | Encounter Summary ---
Author Organization [facility] Address [address] [place] [phone] Phone Care Team Providers Care Skills Instructor Name Role Phone Kelly Marte MD Primary Care Provider [phone] Reason for Visit * Reason Comments Med Refill Encounter Details Date Type Department Care Team (Late st Contact Info) Description 07/30/2020 Refill [facility] [address] [place] [id number] Vandana Malone PA [address] [facility] [place] [id number] Social History Tobacco Use Types Packs/Day Years [...] st Contact Info) Description 03/04/2025 10:20 AM CAPACITY MANAGER Office Visit [facility] [address] [place] [address] Vandana Malone PA [address] [place] [place] [phone] 06/30/2025 1:20 PM CAPACITY MANAGER Office Visit [facility] [address] [place] [address] Luke Wilkins MD [address] [place] [address] documented as of this encounter Visit Diagnoses Not on filedocumented in this encounter Care Teams Skills Instructor Relationship Specialty Start Date End Date Kelly Marte MD [address] [facility] [address] [place] [phone] PCP - General Internal Medicine 09/05/18 documented as of this encounter
--- OUTSIDE RECORDS SUMMARY | 2024-11-02 16:26 | XMS_ITS | Referral Summary ---
Author Organization [facility] Address [address] [place] [address] Care Team Providers Care Eye Surgeon Name Role Phone Kelly Marte MD Primary Care Provider [phone] Allergies Active Allergy Reactions Criticality Noted Date [...] mouth 2 (two) times a day Active [id number] maritza ps-om3-dha 35-1-200 mg capsuleIndicatio ns:Mineral Deficiency [...] Osteoarthritis of knee 06/20/2011 Knee pain 06/19/2011 Social History Tobacco Use Types Packs/Day Years Used Date Smoking Tobacco: Former Cigarettes 985 - 2014 Vaping Started: 03/29 Smokeless Tobacco: Never [...] on file Legal Sex Male 11:43 PM REFRIGERATOR CRATER Gender Identity Male 03/07/2024 6:26 AM REFRIGERATOR CRATER Sexual Orientation Straight 03/07/2024 6: 26 AM REFRIGERATOR CRATER Last Filed Vital Signs Vital Sign Reading Time Taken Comments Blood Pressure 135/80 03/07/2024 11:33 AM REFRIGERATOR CRATER Pulse 98 03/07/2024 11:33 AM REFRIGERATOR CRATER Temperature 36.4 C (97.6 F) 03/07/2024 11:33 AM REFRIGERATOR CRATER Respiratory Rate 20 03/07/2024 11:3 3 AM REFRIGERATOR CRATER Oxygen Saturation 100% 03/07/2024 11: 33 AM REFRIGERATOR CRATER Inhaled Oxygen Concentration - - Weight 147.3 kg (324 lb 11.2 oz) 2023 11:33 AM REFRIGERATOR CRATER Height 182.9 cm (6') 03/07/2024 11:33 AM REFRIGERATOR CRATER Body Mass Index 44.04 03/07/2024 11:33 AM REFRIGERATOR CRATER Plan of Treatment Not on file Medical Devices Implanted Type Area Gift Wrapper Device Identifier Shelf Expiration Date Model / Serial / Lot [employer] Internalbrace Kit Hand Wrist Set Implant Ligament Augmentation Ar-[id number] - [id number] Implanted:Qty: 1 on 04/26/2023 by Alfredo Steven MD at [facility] Other - see comments Left: Thumb [employer] [id number] 10/28/2027 [id number]-8978- CP / / [id number] Nerve Stimulator Back Description:2020 Insurance MEDICARE [facility] [employer] [employer] MEDICARE SUPPLEMENT MEDICARE [place] MEDICARE SUPPLEMENT Care Teams Eye Surgeon Relationship Specialty Start Date End Date Kelly Marte MD [address] [place] [phone] PCP - General Internal Medicine 01/03/18
--- OUTSIDE RECORDS SUMMARY | 2024-11-02 16:26 | XMS_ITS | Clinical Summary ---
Author Organization [facility] Address [address] [place] [address] Care Team Providers Care Steward/Stewardess Tourist Class Name Role Phone Kelly Marte MD Primary Care Provider Source Comments [facility] hospital Affiliates and Associated Physician Practices is amultiple site organization consisting of ambulatory clinics and hospital sitesin [place], [place], [place] and [place]. This disclosure is being madepursuant to the Care Everywhere program and may not contain all information available regarding this patient. Last updated 18.[facility] Allergies Active Allergy Reactions Criticality Noted Date Comments Erythromycin GI Discomfort 07/22/2010 Cephalexin Palpitations 07/22/2010 Tolerates rocephin Palpitations a side effect Penicillins Shortness of Breath High 07/22/2010 Throat swells But tolerates cephalosproin Not angioedema Medications * Be aware that medications may not be up to date on this document. Alwaysverify current medications with the patient. baclofen (LIORESAL) 10 MG tablet Take 20 mg by mouth 3 times daily as needed Active atorvastatin (Lipitor) 10 MG tablet Take 1 (one) tablet by mouth at bedtime Active pregabalin (LYRICA) 100 MG capsule Take 1 (one) capsule by mouth 2 times daily Active ALPRAZolam (XANAX) 0.25 MG tablet Take 0.25 mg by mouth 3 times daily as needed for Anxiety. Active Multiple Minerals-Vitami ns (CITRACAL PLUS PO) Take 1 Tab by mouth once daily Active HYDROcodone-tori taminophen (NORCO) 10-325 MG tablet Take 1 Tab by mouth 2 times daily as needed for Pain 20 Tab 03/20/2016 Active aspirin (ASPIRIN) 81 MG chew tablet Take 1 Tab by mouth once daily 10/21/2016 Active calcium carbonate (TUMS) 500 MG chew tablet Take 1 Tab by mouth 3 times daily 90 Tab 1 10/20/2016 Active calcitriol (ROCALTROL) 0.25 MCG capsule Take 1 Cap by mouth once daily 30 Cap ` 10/21/2016 Active oxyCODONE ER 12hr (Xtampza) 13.5 MG capsule Take 1 (one) capsule by mouth every 12 hours Active sertraline (Zoloft) 100 MG tablet Take 1 (one) tablet by mouth once daily Active traZODone (Desyrel) 100 MG tablet Take 1 (one) tablet by mouth at bedtime Active amLODIPine (Norvasc) 5 MG tablet Take 1 (one) tablet by mouth once daily Active allopurinol (Zyloprim) 100 MG tablet Take by mouth 2 times daily Active torsemide (Demadex) 20 MG tablet Take 1 (one) tablet by mouth once daily Active Active Problems Problem Noted Date Diagnosed Date Acute renal failure, unspecified acute renal mike lure type 05/15/2022 Sepsis(995.91) 10/16/2016 Overview (01/28/2017): IMO Update 01/28/2017 Acute renal failure 10/16/2016 Hypokalemia 10/16/2016 Acute renal failure (ARF) 01/26/2016 Resolved Problems Problem Noted Date Diagnosed Date Resolved Date UTI (urinary tract infection) 10/16/2016 10/30/2016 UTI (urinary tract infection) 01/26/2016 02/09/2016 Immunizations Immunization Administration Dates Next Due INFLUENZA VACCINE, ADJUVANTE D, QUADR. (FLUAD QUADRIVALENT; 65Y+) (AIIV4) 05/17/2022,05/16/2022(Deferred: Patient Refused) INFLUENZA VACCINE, QUADR. (F LUZONE; FLULAVAL; FLUARIX; AFLURIA QUADRIVALENT; 6MO+), 0.5 ML (IIV4) 01/27/2016 INFLUENZA VACCINE, TRIV. (FL UZONE; FLULAVAL; FLUARIX; AFLURIA TRIVALENT; 6MO+), 0.5 ML (IIV3) 01/30/2014 Social History Tobacco Use Types Packs/Day Years Used Date Smoking Tobacco: Former Cigarettes 1 30 Cigars Tobacco Cessation:Counseling Given: Not Answered Alcohol Use Standard Drinks/Week Comments No 0 (1 standard drink = 0.6 oz pur e alcohol) Overall Financial Resource Strain (CARDIA) Answe r Date Recorded How hard is it for you to pa y for the very basics like food, housing, medical care, and heating? Not hard at all 05/16/2022 [facility] - Occupational Stress Questionnaire Answer Date Recorded Do you feel stress - tense, restless, nervous, or anxious, or unable to sleep at night because your mind is troubled all the time - these days? Only a little 05/16/2022 Hunger Vital Sign Answer Date Recorded Within the past 12 months, y ou worried that your food would run out before you got the money to buy more. Never true 05/16/19 23 Within the past 12 months, t he food you bought just didn't last and you didn't have money to get more. Never true 05/16/2022 PRAPARE - Transportation Answer Date Re corded In the past 12 months, has l ack of transportation kept you from medical appointments or from getting medications? No 04/30 In the past 12 months, has l ack of transportation kept you from meetings, work, or from getting things needed for daily living? No 05/16/2022 Housing Stability Vital Sign Answer Sky e Recorded In the last 12 months, was t here a time when you were not able to pay the mortgage or rent on time? No 05/16/2022 Number of Places Lived in the Last Year Not on f ile 05/16/2022 In the last 12 months, was t here a time when you did not have a steady place to sleep or slept in a snf (including now)? No 05/16/2022 Sex and Gender Information Value Date Recorded Sex Assigned at Not on file Legal Sex Male 6:21 AM FOUNDRY FINISHER Gender Identity Not on file Sexual Orientation Not on file Last Filed Vital Signs Vital Sign Reading Time Taken Comments Blood Pressure 133/80 01/02/2023 9:15 AM CDT Pulse 84 01/02/2023 9:15 AM CDT Temperature 36.4 C (97.5 F) 01/02/2023 9:15 AM CDT Respiratory Rate 18 01/02/2023 9:15 AM CDT Oxygen Saturation 94% 01/02/2023 9:15 AM CDT Inhaled Oxygen Concentration - - Weight 139.6 kg (307 lb 11.2 oz) 05/16/2022 5:26 AM FOUNDRY FINISHER Height 182.9 cm (6') 05/16/2022 5:26 AM FOUNDRY FINISHER Body Mass Index 41.73 05/16/2022 5:26 AM FOUNDRY FINISHER Plan of Treatment Health Maintenance Due Date Last Done Comments COLOGUARD (AGES 45-75) - COLON CA SCREENING 1952 COLON MONITORING 1952 COLONOSCOPY - COLON CA SCREENING 1952 CT COLONOGRAPHY - COLON CA SCREENING 1952 Colorectal Cancer Screening 1952 FIT - COLON CA SCREENING 1952 FLEX SIG - COLON CA SCREENING 1950 MEDICARE AWV 12 MONTHS 1952 HEPATITIS C SCREENING 10/07/1970 DTAP/TDAP/TD VACCINES (1 - Tdap) 10/12/1971 PNEUMOCOCCAL VACCINE 50+ (1 of 1 - PCV) 2002 ZOSTER VACCINE (1 of 2) 2002 Respiratory Syncytial Virus (RSV) Vaccine Pt: or over 60 yrs (1 - Risk 60-74 years 1-dose series) 2012 AAA SCREENING 2017 COVID-19 VACCINE ( season) 2023 07/13/2021, 12/22/2020, 12/01/2020 DEPRESSION SCREENING 04/30/2024 INFLUENZA VACCINE (Season Ended) 2024 05/17/2022, 02/09/2021, 03/29/2020, Additional history exists SCREENING FOR DIABETES 08/30/2025 , 08/30/2022, 08/30/2022, Additional history exists HEPATITIS B VACCINE Aged Out No longe r eligible based on patient's age to complete this topic HIB VACCINE Aged Out No longer eligi ble based on patient's age to complete this topic HPV VACCINE Aged Out No longer eligi ble based on patient's age to complete this topic MENINGOCOCCAL (Group B) VACCINE SHARED DECISION-MAKING Aged Out No longer eligible based on patient's age to complete this topic MENINGOCOCCAL GROUPS A/C/Y/W VACCINE Aged Out No longer eligible based on patient's age to complete this topic Medical Devices Implanted Type Area Merchandise Shopper Device Identifier Shelf Expiration Date Model / Serial / Lot Stent Uret Polaris Ultra 6.0fr X 26mm Implanted:Qty: 1 on 01/08/2014 by Amilcar Aaron MD at [facility] [employer] 09/28/2016 [id number] / / [id number] Procedures Procedure Name Priority Date/Time Associated Diagnosis Comments COMPREHENSIVE METABOLIC PANEL AM Draw 05/17/2022 6:21 AM FOUNDRY FINISHER from Last 3 Months or Most Recently Relevant to Health Maintenance Results * (ABNORMAL) COMPREHENSIVE METABOLIC PANEL (05/17/2022 6:21 AM FOUNDRY FINISHER) Glucose 103 70 - 105 mg/dL 05/17/2022 7:14 AM [facility] Sodium 137 136 - 145 mmol/L 05/17/2022 7:14 AM FOUNDRY FINISHER [facility] Potassium 4.1 3.5 - 5.1 mmol/L 05/17/2022 7:14 AM [facility] Chloride 101 98 - 107 mmol/L 05/17/2022 7:14 AM [facility] CO2 23 23 - 31 mmol/L 05/17/2022 7:14 AM FOUNDRY FINISHER [facility] Calcium 9.2 8.4 - 10.4 mg/dL 05/17/2022 7:14 AM [facility] Anion Gap 13 8 - 18 mmol/L 05/17/2022 7:14 AM FOUNDRY FINISHER [facility] BUN 63(H) 8.4 - 25.7 mg/dL 05/17/2022 7:14 AM [facility] Creatinine 2.74(H) 0.72 - 1.25 mg/dL 05/17/2022 7:14 AM [facility] Alkaline Phosphatase 109 40 - 150 U/L 05/17/2022 7:14 AM FOUNDRY FINISHER [facility] ALT 18 0 - 61 U/L 05/17/2022 7:14 AM [facility] AST 20 5 - 34 U/L 05/17/2022 7:14 AM FOUNDRY FINISHER [facility] Protein Total 8.3 6.4 - 8.3 gm/dL 05/17/2022 7:14 AM FOUNDRY FINISHER [facility] Albumin 4.2 3.2 - 4.6 gm/dL 05/17/2022 7:14 AM FOUNDRY FINISHER [facility] Bilirubin Total 0.7 0.2 - 1.2 mg/dL 05/17/2022 7:14 AM FOUNDRY FINISHER [facility] eGFR by CKD-EPI 24(L) >=90 mL/min/1.7 3 m2 05/17/2022 7:14 AM FOUNDRY FINISHER [facility] Blood BLOOD SPECIMEN / Unknown Venipuncture / Unknown 05/17/2022 6:21 AM FOUNDRY FINISHER 05/17/2022 6:40 AM FOUNDRY FINISHER Renny Lerner MD LAB - CHEMISTRY ORDERABLES Fin al Result [facility] [address] [place] [address] from Last 3 Months or Most Recently Relevant to Health Maintenance Insurance [facility] [address] Advance Directives * Full Code (Latest Code Status on File) Date Activated Date Inactivated Comments 05/15/2022 10:02 PM 05/17/2022 2:28 PM * Full Code Date Activated Date Inactivated Comments 10/16/2016 10:16 AM 10/20/2016 2:32 PM * Full Code Date Activated Date Inactivated Comments 10/16/2016 7:44 AM 10/16/2016 10:16 AM * Full Code Date Activated Date Inactivated Comments 03/14/2016 10:41 PM 03/20/2016 4:30 PM * Full Code Date Activated Date Inactivated Comments 01/26/2016 2:52 PM 01/28/2016 4:25 PM Care Teams Steward/Stewardess Tourist Class Relationship Specialty Start Date End Date Kelly Marte MD [address] [place] [phone] PCP - General 10/12/08
--- OUTSIDE RECORDS SUMMARY | 2024-11-02 16:26 | XMS_ITS | Clinical Summary ---
Author Organization [facility] Address [address] [place] [address] Phone Care Team Providers Care Automatic Folder Seamer Name Role Phone Kelly Marte MD Primary Care Provider [phone] Allergies Active Allergy Reactions Criticality Noted Date Comments Azithromycin Other (See Comments) 11/04/2014 breathing Penicillins Other (See Comments) 11/04/2014 Breathing Medications atorvastatin (LIPITOR) 10 mg tablet Take 10 mg by mouth Daily LATE. Active losartan (COZAAR) 100 mg tablet Take 100 mg by mouth daily. Active amLODIPine (NORVASC) 5 mg tablet Take 5 mg by mouth daily. Active pregabalin (LYRICA) 100 mg Capsule Take 200 mg by mouth every 12 hours. Active ALPRAZolam (XANAX) 0.25 mg tablet Take 0.25 mg by mouth 3 times daily as needed for Anxiety. Active morphine (MS IR) 15 mg tablet Take 15 mg by mouth daily. Active baclofen (LIORESAL) 20 mg tablet Take 20 mg by mouth 3 times daily as needed for Pain. Active HYDROcodone-acet aminophen (NORCO) 5-325 mg tablet Take 1 Tab by mouth every 4 hours as needed for Pain. Max Daily Amount: 6 Tabs 30 Tab 0 11/13/2014 Active sulfamethoxazole -trimethoprim (BACTRIM DS) 800-160 mg tablet Take 1 Tab by mouth 2 times daily. 14 Tab 0 11/13/2014 Active Active Problems Problem Noted Date Diagnosed Date Bladder cancer 11/12/2014 Encounters Date Type Department Care Team Description 10/21/2024 External Device Data ST[facility] ABSTRACTION Provider, Abstract 09/30/2024 External Device Data STL ABSTRACTION Provider, Abstract 09/23/2024 External Device Data STL ABSTRACTION Provider, Abstract 09/18/2024 External Device Data STL ABSTRACTION Provider, Abstract 09/17/2024 External Device Data STL ABSTRACTION Provider, Abstract from Last 3 Months Social History Tobacco Use Types Packs/Day Years Used Date Smoking Tobacco: Every Day E-Cigarette/M ist Inhalation Device Alcohol Use Standard Drinks/Week Comments No 0 (1 standard drink = 0.6 oz pur e alcohol) Sex and Gender Information Value Date Recorded Sex Assigned at Not on file Legal Sex Male 3:26 AM TITLE I ASSISTANT Gender Identity Not on file Sexual Orientation Not on file Last Filed Vital Signs Vital Sign Reading Time Taken Comments Blood Pressure 104/80 11/13/2014 1:00 PM CDT Pulse 102 11/13/2014 1:00 PM CDT Temperature 36.8 C (98.3 F) 11/13/2014 1:00 PM CDT Respiratory Rate 18 11/13/2014 1:00 PM CDT Oxygen Saturation 98% 11/13/2014 1:00 PM CDT Inhaled Oxygen Concentration - - Weight 127 kg (280 lb) 11/09/2014 12:44 PM CDT Height 182.9 cm (6') 11/04/2014 12:56 PM CDT Body Mass Index 37.97 11/04/2014 12:56 PM CDT Plan of Treatment Health Maintenance Due Date Last Done Comments PNEUMOCOCCAL VACCINE 50+ YEA RS (1 of 2 - PCV) 10/12/1971 COLORECTAL SCREENING 1997 Colorectal Cancer Screening 1997 FIT-DNA Q 3 years 1997 FIT/FOBT Q 1 year 1997 Flex Sig/CT Colonography Q 5 years 1997 ZOSTER VACCINE (1 of 2) 2002 RSV VACCINE (60+ or ) (1 - Risk 60-74 years 1-dose series) 2012 INFLUENZA VACCINE (#1) 2024 4, 02/09/2023, 05/17/2022, Additional history exists DTAP/TDAP/TD VACCINES (2 - T d or Tdap) 02/09/2033 02/09/2023 Medical Devices Implanted Type Area Buffer Nickel Device Identifier Shelf Expiration Date Model / Serial / Lot Stent Uret Dbl J [id number] - [id number] Implanted:Qty: 1 on 11/09/2014 by Amilcar Aaron MD at [facility] Stent Right: Kidney [employer] [facility] [id number] / / [id number] Left Knee Replacement Pain Pump; [place] [address] [facility] [address] [facility] Address: [place] [address] MEDICARE [place] [address] MEDICARE PART A AND B [facility] SUPP Advance Directives For more information, please contact: [phone] * Full Code (Latest Code Status on File) Date Activated Date Inactivated Comments 11/09/2014 6:42 PM 11/13/2014 6:20 PM * Full Code Date Activated Date Inactivated Comments 11/09/2014 12:46 PM 11/09/2014 6:42 PM Care Teams Automatic Folder Seamer Relationship Specialty Start Date End Date Kelly Marte MD [address] [place] [phone] PCP - General 06/19/00
--- NOTE | 2024-11-02 16:40 | ECG_ITS ---
Test Date: 2024-11-02 16:43:51 Measurements Intervals [place] Rate: 116 P: -66 SC: 163 QRS: -68 QRSD: 155 T: 90 QT: 353 QTc: 491 Interpretive Statements ECTOPIC ATRIAL TACHYCARDIA LEFT AXIS DEVIATION [QRS AXIS < -30] LEFT BUNDLE BRANCH BLOCK [120+ ms QRS DURATION, 80+ ms Q/S IN V1/V2, 85+ ms R IN I/aVL/V5/V6] No previous ECG available for comparison Electronically Signed On 11-03-2024 22:39:21 CDT by Sarah Garcia M.D.
[2024-11-02 16:54] LABS: Hematocrit 45.4 % (42.0-52.0); Hemoglobin 15.4 g/dL (14.0-18.0); Mean Corpuscular HGB Conc 33.9 g/dl (32-36); Mean Corpuscular Hemoglobin 31.7 pg (26-34); Mean Corpuscular Volume 93.4 fl (80-100); Platelet Count Result 245 k/mm3 (150-375); Red Blood Count 4.86 M/mm3 (4.6-6.20); White Blood Count 22.3 K/mm3 (4.5-10.0)
--- NOTE | 2024-11-02 16:54 | PC.NURSE ---
Dr. Cedeno at bedside assessing pt.
--- OUTSIDE RECORDS SUMMARY | 2024-11-02 16:58 | XMS_ITS | Encounter Summary ---
Author Organization [facility] Address [address] [place] [address] Phone Care Team Providers Care Community Health Promoter Name Role Phone Kelly Marte MD Primary Care Provider [phone] Reason for Visit * Reason Comments Med Refill Encounter Details Date Type Department Care Team (Late st Contact Info) Description 07/30/2020 Refill [facility] [address] [place] [address] Vandana Malone PA [address] [place] [address] [place] [address] Social History Tobacco Use Types Packs/Day Years [...] st Contact Info) Description 03/04/2025 10:20 AM MONITOR AND STORAGE BIN TENDER Office Visit [facility] [address] [place] [address] Vandana Malone PA [address] [place] [address] [place] [address] 06/30/2025 1:20 PM MONITOR AND STORAGE BIN TENDER Office Visit [facility] [address] [place] [address] Luke Wilkins MD [address] [place] [address] documented as of this encounter Visit Diagnoses Not on filedocumented in this encounter Care Teams Community Health Promoter Relationship Specialty Start Date End Date Kelly Marte MD [address] [facility] [address] [place] [phone] PCP - General Internal Medicine 09/05/18 documented as of this encounter
--- OUTSIDE RECORDS SUMMARY | 2024-11-02 16:58 | XMS_ITS | Clinical Summary ---
Author Organization [facility] Address [address] [place] [address] Care Team Providers Care Senior Market Intelligence Consultant Name Role Phone Kelly Marte MD Primary Care Provider [phone] Source Comments [facility] Affiliates and Associated Physician Practices is amultiple site organization consisting of ambulatory clinics and hospital sitesin [place], [place], [place] and [place]. This disclosure is being madepursuant to the Care Everywhere program and may not contain all information available regarding this patient. Last updated 18.[facility] Allergies Active Allergy Reactions Criticality Noted Date [...] and heating? Not hard at all 05/16/2022 [facility] [place] Occupat ional [facility] - Occupational Stress [...] place to sleep or slept in a long-term (including now)? No 05/16/2022 Sex and Gender Information Value Date Recorded Sex Assigned at Not on file Legal Sex Male 6:21 AM DESTINATION SPECIALIST Gender Identity Not on file Sexual Orientation [...] (307 lb 11.2 oz) 05/16/2022 5:26 AM DESTINATION SPECIALIST Height 182.9 cm (6') 05/16/2022 5:26 AM DESTINATION SPECIALIST Body Mass Index 41.73 05/16/2022 5:26 AM DESTINATION SPECIALIST Plan of Treatment Health Maintenance Due Date [...] this topic Medical Devices Implanted Type Area Microfilm Technician Device Identifier Shelf Expiration Date Model / Serial / Lot Stent Uret Polaris Ultra 6.0fr X 26mm Implanted:Qty: 1 on 01/08/2014 by Amilcar Aaron MD at [facility] [employer] 09/28/2016 [id number] / / [id number] Procedures Procedure Name Priority Date/Time Associated Diagnosis Comments COMPREHENSIVE METABOLIC PANEL AM Draw 05/17/2022 6:21 AM DESTINATION SPECIALIST from Last 3 Months or Most Recently Relevant to Health Maintenance Results * (ABNORMAL) COMPREHENSIVE METABOLIC PANEL (05/17/2022 6:21 AM DESTINATION SPECIALIST) Glucose 103 70 - 105 mg/dL 05/17/2022 7:14 AM [facility] Sodium 137 136 - 145 mmol/L 05/17/2022 7:14 AM DESTINATION SPECIALIST [facility] Potassium 4.1 3.5 - 5.1 mmol/L 05/17/2022 7:14 AM [facility] Chloride 101 98 - 107 mmol/L 05/17/2022 7:14 AM [facility] CO2 23 23 - 31 mmol/L 05/17/2022 7:14 AM DESTINATION SPECIALIST [facility] Calcium 9.2 8.4 - 10.4 mg/dL 05/17/2022 7:14 AM [facility] Anion Gap 13 8 - 18 mmol/L 05/17/2022 7:14 AM DESTINATION SPECIALIST [facility] BUN 63(H) 8.4 - 25.7 mg/dL 05/17/2022 7:14 AM [facility] Creatinine 2.74(H) 0.72 - 1.25 mg/dL 05/17/2022 7:14 AM [facility] Alkaline Phosphatase 109 40 - 150 U/L 05/17/2022 7:14 AM DESTINATION SPECIALIST [facility] ALT 18 0 - 61 U/L 05/17/2022 7:14 AM [facility] AST 20 5 - 34 U/L 05/17/2022 7:14 AM DESTINATION SPECIALIST [facility] Protein Total 8.3 6.4 - 8.3 gm/dL 05/17/2022 7:14 AM DESTINATION SPECIALIST [facility] Albumin 4.2 3.2 - 4.6 gm/dL 05/17/2022 7:14 AM DESTINATION SPECIALIST [facility] Bilirubin Total 0.7 0.2 - 1.2 mg/dL 05/17/2022 7:14 AM DESTINATION SPECIALIST [facility] eGFR by CKD-EPI 24(L) >=90 mL/min/1.7 3 m2 05/17/2022 7:14 AM DESTINATION SPECIALIST [facility] Blood BLOOD SPECIMEN / Unknown Venipuncture / Unknown 05/17/2022 6:21 AM DESTINATION SPECIALIST 05/17/2022 6:40 AM DESTINATION SPECIALIST Renny Lerner MD LAB - CHEMISTRY ORDERABLES Fin al Result [facility] [address] [place] [address] from Last 3 Months or Most Recently Relevant to Health Maintenance Insurance [facility] [place] [address] Advance Directives * Full Code (Latest Code [...] 2:52 PM 01/28/2016 4:25 PM Care Teams Senior Market Intelligence Consultant Relationship Specialty Start Date End Date Kelly Marte MD [address] [place] [phone] PCP - General 10/12/08
--- OUTSIDE RECORDS SUMMARY | 2024-11-02 16:58 | XMS_ITS | Encounter Summary ---
Author Organization [facility] Address [address] [place] [address] Phone Care Team Providers Care Dampproofer Name Role Phone Kelly Marte MD Primary Care Provider Reason for Visit * Reason Comments Med Refill Encounter Details Date Type Department Care Team (Late st Contact Info) Description 06/30/2020 Refill [facility] [address] [place] [address] Vandana Malone PA [address] [place] [place] [address] Social History Tobacco Use Types Packs/Day Years [...] st Contact Info) Description 03/04/2025 10:20 AM CAR DESIGNER Office Visit [facility] [address] [place] [address] Vandana Malone PA [address] [place] [address] 06/30/2025 1:20 PM CAR DESIGNER Office Visit [facility] [address] [place] [address] Luke Wilkins MD [address] [place] [address] documented as of this encounter Visit Diagnoses Not on filedocumented in this encounter Care Teams Dampproofer Relationship Specialty Start Date End Date Kelly Marte MD [address] [facility] [address] [place] [phone] PCP - General Internal Medicine 09/05/18 documented as of this encounter
--- OUTSIDE RECORDS SUMMARY | 2024-11-02 16:58 | XMS_ITS | Encounter Summary ---
Author Organization [facility] Address [address] [place] [address] Care Team Providers Care Regional Director Of Admissions Name Role Phone Kelly Marte MD Primary Care Provider [phone] Encounter Details Date Type Department Care Team (Latest Contact Info) Description 06/19/2000 Outpatient Historical [facility] Sky French MD [address] [facility] [address] [place] [phone] Other specified complications (Primary Dx) Social History Tobacco Use Types Packs/Day Years Used Date Smoking Tobacco: Never Assessed Sex and Gender Information Value Date Recorded Sex Assigned at Not on file Legal Sex Male 3:26 AM PSYCHIATRIC ASSISTANT Gender Identity Not on file Sexual Orientation Not on file documented as of this encounter Plan of Treatment Not on file documented as of this encounter Visit Diagnoses Diagnosis Other specified complications- Primary documented in this encounter Care Teams Regional Director Of Admissions Relationship Specialty Start Date End Date Kelly Marte MD [address] [place] [address] [address] [place] [address] PCP - General 06/19/00 documented as of this encounter
--- OUTSIDE RECORDS SUMMARY | 2024-11-02 16:58 | XMS_ITS | Clinical Summary ---
Author Organization [facility] Address [address] [place] [address] Phone Care Team Providers Care Package Reinspector Name Role Phone Kelly Marte MD Primary Care Provider [phone] Allergies Active Allergy Reactions Criticality Noted Date [...] mouth every 12 (twelve) hours Active Umeclidinium [place] (Incruse Ellipta) 62.5 MCG/ACT aerosol powder Inhale [...] Description 10/01/2024 10:00 AM CDT Office Visit [facility] [address] [facility] [address] [place] [address] Vandana Malone PA Stage 3b chronic kidney disease ([facility]) (Primary Dx); Essential (primary) hypertension 09/17/2024 Refill [facility] [address] [facility] [address] [place] [address] Vandana Malone PA 08/04/2024 Orders Only [facility] [address] [facility] [address] [place] [address] Marcy Ivan MA Essential (primary) hypertension (Primary [...] on file Legal Sex Male 9:25 AM [facility] Gender Identity Not on file Sexual Orientation [...] st Contact Info) Description 03/04/2025 10:20 AM CAST IRON DIPPER Office Visit [facility] [address] [facility] [address] [place] [address] Vandana Malone PA [address] [address] 06/30/2025 1:20 PM CAST IRON DIPPER Office Visit [facility] [address] [facility] [address] [place] [address] Luke Wilkins MD [address] [address] Health Maintenance Due Date Last Done Comments [...] AM CDT) Color of Urine YELLOW YELLOW [facility] (ST[facility]) Appearance of [...] (STL) Comment: CULTURE, URINE, ROUTINE Micro Number: [id number] Test Status: Final Specimen Source: Urine Specimen [...] AM CDT 09/26/2024 8:35 AM CDT Narrative [facility] ([facility]) - 09/28/2024 5:48 AM CDT FASTING:YES FASTING: YES Resulting Agency Comment Performing Organization Information: Site ID: [id number] Name: [facility] Address: [address] [address] [address] Director: Dl Champion Vandana MOELLER LAB BLOOD ORDERABLES Final Res ult [facility] ([facility]) * (ABNORMAL) Total Protein w/ Creatinine, Urine, [...] AM CDT 09/26/2024 8:35 AM CDT Narrative [facility] ([facility]) - 09/28/2024 5:48 AM CDT FASTING:YES FASTING: YES Resulting Agency Comment Performing Organization Information: Site ID: [id number] Name: [facility] Address: Pending sale to [facility] [place] [address] Director: Dl Champion Vandana MOELLER LAB URINE ORDERABLES Final Res ult [facility] (ST[facility]) * (ABNORMAL) CBC (includes Differential/Platelets) (09/26/2024 8:34 AM CDT) Leukocytes, Blood 12.9(H) 3.8 - 10.8 Thousand/ uL [facility] (ST[facility]) Erythrocytes (RBC) [...] Performing Organization Information: Site ID: [id number] Name: [facility] Address: [address] [address] [address] Director: Dl Champion us Vandana MOELLER LAB BLOOD ORDERABLES Final Res ult [facility] ([facility]) * (ABNORMAL) Renal Function Panel (RFP) (09/26/2024 8:34 AM CDT) Glucose, Serum/Plasma 162(H) 65 - 99 mg/dL [facility] (L) Comment: Fasting reference interval For someone without known diabetes, a glucose value >125 mg/dL indicates that they may have diabetes and this should be confirmed with a follow-up test. Urea nitrogen, Serum/Plasma (BUN) 35(H) 7 - 25 mg/dL [facility] (STL) Creatinine, Serum/Plasma 2.26(H) 0.70 - 1.28 mg/dL [facility] (ST[facility]) Estimated Glomerular Filtration Rate (eGFR) 30(L) > OR = 60 mL/min/1.7 3m2 [facility] (ST[facility]) Urea nitrogen/Creati nine, Serum/Plasma 15 6 - 22 (calc) [facility] ([facility]) Sodium, Serum/Plasma 139 135 - 146 mmol/L [facility] ([facility]) Potassium, Serum/Plasma 4.4 3.5 - 5.3 mmol/L [facility] ([facility]) Chloride, Serum/Plasma 101 98 - 110 mmol/L [facility] (ST[facility]) Carbon dioxide CO2), total, Serum/Plasma 28 20 - 32 mmol/L [facility] ([facility]) Calcium, Serum/Plasma 9.9 8.6 - 10.3 mg/dL [facility] ([facility]) Phosphate, Serum/Plasma 4.1 2.1 - 4.3 mg/dL [facility] ([facility]) Albumin, Serum/Plasma 4.3 3.6 - 5.1 g/dL [facility] ([facility]) Blood (Blood, Venous) 09/26/2024 8:34 AM CDT 09/26/2024 8:35 AM CDT Narrative [facility]) - 09/28/2024 5:48 AM CDT FASTING:YES FASTING: YES Resulting Agency Comment Performing Organization Information: Site ID: Name: [facility] Address: [address] [facility] [place] [address] Director: Dl Champion Vandana [facility] LAB BLOOD ORDERABLES Final Res ult [facility] ([facility]) * Ferritin, Serum (09/26/2024 8:34 AM CDT) Ferritin, Serum/Plasma 69 24 - 380 ng/mL [facility] ([facility]) Blood (Blood, Venous) 09/26/2024 8:34 AM CDT 09/26/2024 8:35 AM CDT Narrative [facility] ([facility]) - 09/28/2024 5:48 AM CDT FASTING:YES FASTING: YES Resulting Agency Comment Performing Organization Information: Site ID: [id number] Name: [facility] Address: [address] [facility] [place] [address] Director: Dl Champion MD [facility] LAB BLOOD ORDERABLES Final Res ult [facility] ([facility]) * Iron and TIBC, Serum (09/26/2024 8:34 AM CDT) Iron, Serum/Plasma 82 50 - 180 mcg/dL [facility] ([facility]) Iron binding capacity, Serum/Plasma 300 250 - 425 mcg/dL (calc) [facility] ([facility]) Iron saturation, Serum/Plasma 27 20 - 48 % (calc) [facility] ([facility]) Blood (Blood, Venous) 09/26/2024 8:34 AM CDT 09/26/2024 8:35 AM CDT Narrative [facility] ([facility]) - 09/28/2024 5:48 AM CDT FASTING:YES FASTING: YES Resulting Agency Comment Performing Organization Information: Site ID: [id number] Name: [facility] Address: [address] [place] [address] Director: Dl Champion MD Vandana MOELLER LAB BLOOD ORDERABLES Final Res ult Performing Organization Address City/[facility]/ZIP Co de Phone Number [facility] ([facility]) * (ABNORMAL) PTH Intact, Serum (09/26/2024 8:34 AM CDT) PTH, Intact, Serum/Plasma 11(L) 16 - 77 pg/mL [facility] (ST) Comment: Interpretive Guide Intact PTH Calcium ------- Normal Parathyroid Normal Normal Hypoparathyroidism Low or Low Normal Low Hyperparathyroidism Primary Normal or High High Secondary High Normal or Low Tertiary High High Non-Parathyroid Hypercalcemia Low or Low Normal High Blood (Blood, Venous) 09/26/2024 8:34 AM CDT 09/26/2024 8:35 AM CDT Narrative [facility] ([facility]) - 09/28/2024 5:48 AM CDT FASTING:YES FASTING: YES Resulting Agency Comment Performing Organization Information: Site ID: [id number] Name: [facility] Address: [address] [place] [address] Director: Dl Champion MD Vandana MOELLER LAB BLOOD ORDERABLES Final Res ult [facility] ([facility]) from Last 3 Months Insurance MEDICARE [facility] Care Teams Package Reinspector Relationship Specialty Start Date End Date Kelly Marte MD [facility] [address] [phone] PCP - General Internal Medicine 09/05/18
--- OUTSIDE RECORDS SUMMARY | 2024-11-02 16:59 | XMS_ITS ---
Author Organization [facility] Address [address] [place] [address] Phone Care Team Providers Care Sugar Coating Hand Name Role Phone Kelly Marte MD Primary Care Provider [phone] Active Problems Problem Noted Date Diagnosed Date [...]
--- OUTSIDE RECORDS SUMMARY | 2024-11-02 16:59 | XMS_ITS | Clinical Summary ---
Author Organization [facility] Address [address] [place] [address] Care Team Providers Care Social Media Strategist Name Role Phone Kelly Marte MD Primary Care Provider [phone] Allergies Active Allergy Reactions Criticality Noted Date [...] mouth 2 (two) times a day Active [id number] maritza ps-om3-dha 35-1-200 mg capsuleIndicatio ns:Mineral Deficiency [...] 04/30/2009 - 04/29/[address] Hoff at [place] unknown date, total knee BLADDER SURGERY 04/30/2013 [...] on file Legal Sex Male 11:43 PM LEGEND MAKER Gender Identity Male 03/07/2024 6:26 AM LEGEND MAKER Sexual Orientation Straight 03/07/2024 6: 26 AM LEGEND MAKER Obstetrics History Last Filed Vital Signs Vital Sign Reading Time Taken Comments Blood Pressure 135/80 03/07/2024 11:33 AM LEGEND MAKER Pulse 98 03/07/2024 11:33 AM LEGEND MAKER Temperature 36.4 C (97.6 F) 03/07/2024 11:33 AM LEGEND MAKER Respiratory Rate 20 03/07/2024 11:3 3 AM LEGEND MAKER Oxygen Saturation 100% 03/07/2024 11: 33 AM LEGEND MAKER Inhaled Oxygen Concentration - - Weight 147.3 kg (324 lb 11.2 oz) 2023 11:33 AM LEGEND MAKER Height 182.9 cm (6') 03/07/2024 11:33 AM LEGEND MAKER Body Mass Index 44.04 03/07/2024 11:33 AM LEGEND MAKER Plan of Treatment Health Maintenance Due Date [...] history exists Medical Devices Implanted Type Area Security Officer Supervisor Device Identifier Shelf Expiration Date Model / Serial / Lot [employer] Internalbrace Kit Hand Wrist Set Implant Ligament Augmentation Ar-8978-Cp - [id number] Implanted:Qty: 1 on 04/26/2023 by Alfredo Steven MD at [facility] Other - see comments Left: Thumb [employer] [id number] 10/28/2027 SVITLANA-8978- CP / / [id number] Nerve Stimulator Back Description:2020 [place] [address] MEDICARE [facility] [place] [address] MEDICARE [facility] MEDICARE SUPPLEMENT Care Teams Social Media Strategist Relationship Specialty Start Date End Date Kelly Marte MD [address] [place] [id number] PCP - General Internal Medicine 01/03/18
--- OUTSIDE RECORDS SUMMARY | 2024-11-02 16:59 | XMS_ITS | Clinical Summary ---
Author Organization [facility] Address [address] [place] [address] Phone Care Team Providers Care Film Editor Name Role Phone Kelly Marte MD Primary Care Provider [phone] Allergies Active Allergy Reactions Criticality Noted Date [...] on file Legal Sex Male 3:26 AM COMPLIANCE TESTER Gender Identity Not on file Sexual Orientation [...] 02/09/2033 02/09/2023 Medical Devices Implanted Type Area Senior Financial Analyst Device Identifier Shelf Expiration Date Model / Serial / Lot Stent Uret Dbl J [id number] - [id number] Implanted:Qty: 1 on 11/09/2014 by Amilcar Aaron MD at [facility] Stent Right: Kidney [employer] [id number] / / [id number] Left Knee Replacement Pain Pump; Morph[place] [address] [facility] [id number] [facility] Address: [place] [address] MEDICARE [place] [address] MEDICARE PART A AND B [facility] SUPP Advance Directives For more information, please contact: [phone] * Full Code (Latest Code Status on File) Date Activated Date Inactivated Comments 11/09/2014 6:42 PM 11/13/2014 6:20 PM * Full Code Date Activated Date Inactivated Comments 11/09/2014 12:46 PM 11/09/2014 6:42 PM Care Teams Film Editor Relationship Specialty Start Date End Date Kelly Marte MD [address] [place] [id number] PCP - General 06/19/00
--- OUTSIDE RECORDS SUMMARY | 2024-11-02 16:59 | XMS_ITS | Referral Summary ---
Author Organization [facility] Address [address] [place] [address] Care Team Providers Care Hand Etcher Name Role Phone Kelly Marte MD Primary Care Provider [phone] Allergies Active Allergy Reactions Criticality Noted Date [...] mouth 2 (two) times a day Active uol-kzc80-uafu-i maritza ps-om3-dha 35-1-200 mg capsuleIndicatio ns:Mineral Deficiency [...] on file Legal Sex Male 11:43 PM INTERMEDIATE TEACHER Gender Identity Male 03/07/2024 6:26 AM INTERMEDIATE TEACHER Sexual Orientation Straight 03/07/2024 6: 26 AM INTERMEDIATE TEACHER Last Filed Vital Signs Vital Sign Reading Time Taken Comments Blood Pressure 135/80 03/07/2024 11:33 AM INTERMEDIATE TEACHER Pulse 98 03/07/2024 11:33 AM INTERMEDIATE TEACHER Temperature 36.4 C (97.6 F) 03/07/2024 11:33 AM INTERMEDIATE TEACHER Respiratory Rate 20 03/07/2024 11:3 3 AM INTERMEDIATE TEACHER Oxygen Saturation 100% 03/07/2024 11: 33 AM INTERMEDIATE TEACHER Inhaled Oxygen Concentration - - Weight 147.3 kg (324 lb 11.2 oz) 2023 11:33 AM INTERMEDIATE TEACHER Height 182.9 cm (6') 03/07/2024 11:33 AM INTERMEDIATE TEACHER Body Mass Index 44.04 03/07/2024 11:33 AM INTERMEDIATE TEACHER Plan of Treatment Not on file Medical Devices Implanted Type Area Early Childhood Educator Aide Device Identifier Shelf Expiration Date Model / Serial / Lot [employer] Internalbrace Kit Hand Wrist Set Implant Ligament Augmentation Ar-8978-Cp - [id number] Implanted:Qty: 1 on 04/26/2023 by Alfredo Steven MD at [facility] Other - see comments Left: Thumb [employer] [id number] 10/28/2027 SVITLANA-8978- CP / / [id number] Nerve Stimulator Back Description:2020 Insurance MEDICARE [facility] [employer] MEDICARE SUPPLEMENT MEDICARE [employer] MEDICARE SUPPLEMENT Care Teams Hand Etcher Relationship Specialty Start Date End Date Kelly Marte MD [address] [place] [id number] PCP - General Internal Medicine 01/03/18
[2024-11-02] MEDS: HYDROmorphone HCL INJ (*CRX) 2 MG/ML VIAL 1 MG IV PUSH ×2 (17:01→18:58)
--- NOTE | 2024-11-02 17:04 | ED.GENADULT ---
HPI - General Adult General Chief complaint: Shortness of Breath/Dyspnea Stated complaint: sob Time Seen by Provider: 11/02/24 16:49 History of Present Illness HPI narrative: Patient is a 72-year-old gentleman who presents emergency department with chief complaint of shortness of breath and right flank pain radiating to his right lower quadrant patient reports that he has history of an underlying left bundle branch block reports that he has been getting short of breath with exertion for the last few months patient states symptoms are not improved by anything and reports they are worsened with exertion patient reports he is having no chest pain but does report pain in the low chest radiating around to the right lower quadrant Related Data Home Medications ?Medication ?Instructions ?Recorded ?Confirmed ?Last Taken ?Type Cranberry Plus Vitamin C 450 mg PO DAILY 05/11/22 05/11/22 Unknown History allopurinol 100 mg tablet 200 mg PO DAILY 05/11/22 05/11/22 Unknown History amlodipine 5 mg tablet 5 mg PO DAILY 05/11/22 05/11/22 Unknown History aspirin 81 mg capsule 81 mg PO DAILY 05/11/22 05/11/22 Unknown History atorvastatin 10 mg tablet 10 mg PO DAILY 05/11/22 05/11/22 Unknown History calcitriol 0.25 mcg capsule 0.25 mcg PO DAILY 05/11/22 05/11/22 Unknown History calcium 200 mg (as 1 tablet PO DAILY 05/11/22 05/11/22 Unknown History citrate)-vitamin D3 6.25 mcg (250 unit) tablet (Citracal-D3 Petites) cholecalciferol (vitamin D3) 50 50 mcg PO DAILY 05/11/22 05/11/22 Unknown History mcg (2,000 unit) capsule (Vitamin D3) fexofenadine 180 mg tablet 180 mg PO DAILY 05/11/22 05/11/22 Unknown History oxycodone 5 mg tablet 5 mg PO BID 05/11/22 05/11/22 Unknown History oxycodone myristate 13.5 mg 13.5 mg PO BID 05/11/22 05/11/22 Unknown History capsule sprinkle extend release 12hr(DON'T CRUSH) (Xtampza ER) pregabalin 150 mg capsule 150 mg PO TID 05/11/22 05/11/22 Unknown History ropinirole 2 mg tablet 2 mg PO HS 05/11/22 05/11/22 Unknown History sertraline 100 mg tablet 100 mg PO DAILY 05/11/22 05/11/22 Unknown History torsemide 20 mg tablet 20 mg PO DAILY 05/11/22 05/11/22 Unknown History trazodone 100 mg tablet 100 mg PO HS 05/11/22 05/11/22 Unknown History Allergies Allergy/AdvReac Type Severity Reaction Status Date / Time erythromycin base Allergy Mild Unknown Verified 11/02/24 17:02 Penicillins Allergy Mild Unknown Verified 11/02/24 16:42 iohexol (From contrast - CT, AdvReac Unknown Verified 11/02/24 16:42 X-RAY) ERYTHROMYCINS Allergy Mild Unknown Uncoded 11/02/24 16:42 Review of Systems Review of Systems: A 10 system review of systems was completed on the patient and is negative except for what is stated in the HPI. Nursing and ancillary documentation was reviewed. [facility] Past Medical History Medical History Depression with anxiety Renal cancer Bladder cancer Surgical History Surgical History History of bladder surgery History of nephrectomy Social History Social History Smoking status: Former smoker Alcohol intake: never Substance use: never Lack of Transportation: No Lack of Food: Never True Current Housing: I Have Housing Concerned About Future Housing: No Difficulty Paying Gas/Electric Bills: No Difficulty Paying for Meds: No Currently Unemployed: No Education: High School Diploma/GED Difficulty w/ Childcare or Family Care: No Spiritual care concerns: No Exam Narrative: GENERAL: Well-appearing, well-nourished, and in no acute distress. HEAD: Normocephalic, atraumatic. EYES: PERRLA and EOMI. ENT: Nares clear, no rhinorrhea or epistaxis. Mucous membranes moist. NECK: Supple. CHEST: Clear to auscultation. No respiratory distress. HEART: Tachycardic rate and rhythm. No murmur heard. Normal peripheral pulses. ABDOMEN: Soft, nontender, nondistended, normal active bowel sounds. EXTREMITIES: Normal range of motion. No edema. SKIN: Warm, dry, no rash. NEURO: No focal deficits. Alert and oriented x3. PSYCH: Normal mood and affect. Course Vital Signs Vital signs: Vital Signs Temperature 36.4 C L 11/02/24 16:25 Pulse Rate 139 H 11/02/24 16:25 Respiratory Rate 32 H 11/02/24 16:25 Blood Pressure 135/77 11/02/24 16:25 Pulse Oximetry 94 11/02/24 16:25 Temperature 37.3 C 11/02/24 18:43 Pulse Rate 91 11/02/24 19:01 Respiratory Rate 11 L 11/02/24 19:01 Blood Pressure 105/54 L 11/02/24 19:01 Pulse Oximetry 94 11/02/24 19:01 Medical Decision Making Vital Signs Vital Signs: Vital Signs Temperature 36.4 C L 11/02/24 16:25 Pulse Rate 139 H 11/02/24 16:25 Respiratory Rate 32 H 11/02/24 16:25 Blood Pressure 135/77 11/02/24 16:25 Pulse Oximetry 94 11/02/24 16:25 Temperature 37.3 C 11/02/24 18:43 Pulse Rate 91 11/02/24 19:01 Respiratory Rate 11 L 11/02/24 19:01 Blood Pressure 105/54 L 11/02/24 19:01 Pulse Oximetry 94 11/02/24 19:01 Lab Data 11/02/24 16:44 11/02/24 16:44 Labs: Lab Results 11/02/24 11/02/24 11/02/24 Range/Units 16:44 16:51 17:03 WBC 22.3 H (4.5-10.0) K/mm3 RBC 4.86 (4.6-6.20) M/mm3 Hgb 15.4 (14.0-18.0) g/dL Hct 45.4 (42.0-52.0) % MCV 93.4 (80-100) fl MCH 31.7 (26-34) pg MCHC 33.9 (32-36) g/dl RDW 15.2 H (11.5-14.5) % Plt Count 245 (150-375) k/mm3 MPV 9.9 (7.4-10.4) fl Immature Gran % (Auto) Not Reportable Neut % (Auto) Not Reportable Lymph % (Auto) Not Reportable [place] % (Auto) Not Reportable Eos % (Auto) Not Reportable Baso % (Auto) Not Reportable Lymph # (Auto) Not Reportable [place] # (Auto) Not Reportable Eos # (Auto) Not Reportable Baso # (Auto) Not Reportable Abs Immat Gran (auto) Not Reportable Absolute Neuts (auto) Not Reportable Absolute Nucleated RBC Not Reportable Total Counted 100 Neutrophils % (Manual) 83 H (46-73) % Band Neutrophils % 6 (0-6) % Lymphocytes % (Manual) 3.0 L (18-44) % Monocytes % (Manual) 8 (3-9) % Nucleated RBC % Not Reportable Abs Neuts (Manual) 19.84 H (1.3-6.7) K/mm3 Abs Lymphs (Manual) 0.66 L (1.1-4.5) K/mm3 Abs Monocytes (Manual) 1.78 H (0.1-0.90) K/mm3 Platelet Estimate Adequate (Adequate) Clumped Platelets Present Anisocytosis 2+ Schistocytes None seen PT 14.6 (11.1-14.7) Seconds INR 1.1 APTT 30.2 (22.3-36.8) Seconds Sodium 135 L (137-145) mmol/L Potassium 4.4 (3.4-5.0) mmol/L Chloride 102 (98-107) mmol/L Carbon Dioxide 18 L (22-30) mmol/L Anion Gap 15 H (4-12) mmol/L BUN 43 H D (9-20) mg/dL Creatinine 3.13 H (0.7-1.3) mg/dL Estim Creat Clear Calc Not Reportable Estimated GFR 20 L (59 - ) Glucose 169 H (65-110) mg/dL Lactic Acid 3.6 H (0.7-2.0) mmol/L Calcium 9.7 (8.4-10.2) mg/dL Magnesium 1.8 (1.6-2.3) mg/dL Total Bilirubin 1.0 (0.2-1.3) mg/dL AST 35 (17-59) U/L ALT 30 (6-50) U/L Alkaline Phosphatase 77 (38-126) U/L Troponin I 0.045 H* (0.000-0.034) ng/mL NT-Pro-B Natriuret Pep 2150 H (19.9-100) pg/mL Total Protein 7.7 (6.3-8.2) g/dL Albumin 4.2 (3.5-5.1) g/dL Urine Color (Yellow) Urine Appearance (Clear) Urine pH (5.0-9.0) Ur Specific [place] (1.001-1.035) Urine Protein (Negative) mg/dL Urine Glucose (UA) (Negative) mg/dL Urine Ketones (Negative) mg/dL Ur Blood (Man) (Negative) Urine Nitrate (Negative) Urine Bilirubin (Negative) Urine Urobilinogen (<2.0) mg/dL Add Ur Microanalysis Leukocyte Esterase Rfl (Negative) MARYLU/UL Urine RBC (0-2) /hpf Urine WBC (0-3) /hpf Ur Squamous Epith Cells (Few) /hpf Urine Bacteria /hpf Urine Casts Influenza A (RT-PCR) Negative (Negative) Influenza B (RT-PCR) Negative (Negative) RSV (RT-PCR) Negative (Negative) SARS-CoV-2 RNA (RT-PCR) Negative (Negative) 11/02/24 Range/Units 18:46 WBC (4.5-10.0) K/mm3 RBC (4.6-6.20) M/mm3 Hgb (14.0-18.0) g/dL Hct (42.0-52.0) % MCV (80-100) fl MCH (26-34) pg MCHC (32-36) g/dl RDW (11.5-14.5) % Plt Count (150-375) k/mm3 MPV (7.4-10.4) fl Immature Gran % (Auto) Neut % (Auto) Lymph % (Auto) [place] % (Auto) Eos % (Auto) Baso % (Auto) Lymph # (Auto) [place] # (Auto) Eos # (Auto) Baso # (Auto) Abs Immat Gran (auto) Absolute Neuts (auto) Absolute Nucleated RBC Total Counted Neutrophils % (Manual) (46-73) % Band Neutrophils % (0-6) % Lymphocytes % (Manual) (18-44) % Monocytes % (Manual) (3-9) % Nucleated RBC % Abs Neuts (Manual) (1.3-6.7) K/mm3 Abs Lymphs (Manual) (1.1-4.5) K/mm3 Abs Monocytes (Manual) (0.1-0.90) K/mm3 Platelet Estimate (Adequate) Clumped Platelets Anisocytosis Schistocytes PT (11.1-14.7) Seconds INR APTT (22.3-36.8) Seconds Sodium (137-145) mmol/L Potassium (3.4-5.0) mmol/L Chloride (98-107) mmol/L Carbon Dioxide (22-30) mmol/L Anion Gap (4-12) mmol/L BUN (9-20) mg/dL Creatinine (0.7-1.3) mg/dL Estim Creat Clear Calc Estimated GFR (59 - ) Glucose (65-110) mg/dL Lactic Acid (0.7-2.0) mmol/L Calcium (8.4-10.2) mg/dL Magnesium (1.6-2.3) mg/dL Total Bilirubin (0.2-1.3) mg/dL AST (17-59) U/L ALT (6-50) U/L Alkaline Phosphatase (38-126) U/L Troponin I (0.000-0.034) ng/mL NT-Pro-B Natriuret Pep (19.9-100) pg/mL Total Protein (6.3-8.2) g/dL Albumin (3.5-5.1) g/dL Urine Color Yellow (Yellow) Urine Appearance Turbid H (Clear) Urine pH 6.0 (5.0-9.0) Ur Specific [place] 1.012 (1.001-1.035) Urine Protein 2+ H (Negative) mg/dL Urine Glucose (UA) Negative (Negative) mg/dL Urine Ketones Negative (Negative) mg/dL Ur Blood (Man) 2+ H (Negative) Urine Nitrate Negative (Negative) Urine Bilirubin Negative (Negative) Urine Urobilinogen 0.2 (<2.0) mg/dL Add Ur Microanalysis Reviewed Leukocyte Esterase Rfl 3+ H (Negative) MARYLU/UL Urine RBC 3-5 H (0-2) /hpf Urine WBC >100 H (0-3) /hpf Ur Squamous Epith Cells None seen (Few) /hpf Urine Bacteria 4+ H /hpf Urine Casts 6-10 Influenza A (RT-PCR) (Negative) Influenza B (RT-PCR) (Negative) RSV (RT-PCR) (Negative) SARS-CoV-2 RNA (RT-PCR) (Negative) Discharge Plan Discharge Clinical Impression: Acute pyelonephritis, Elevated troponin, Sepsis, Leukocytosis Patient Disposition: Still a Patient Condition: Stable Patient Language: Icelandic Prescriptions: No Action torsemide 20 mg tablet 20 mg PO DAILY atorvastatin 10 mg tablet 10 mg PO DAILY sertraline 100 mg tablet 100 mg PO DAILY fexofenadine [Valarie] 180 mg Tablet 180 mg PO DAILY amlodipine 5 mg tablet 5 mg PO DAILY allopurinol 100 mg tablet 200 mg PO DAILY trazodone 100 mg tablet 100 mg PO HS ropinirole 2 mg tablet 2 mg PO HS calcitriol 0.25 mcg capsule 0.25 mcg PO DAILY oxycodone 5 mg tablet 5 mg PO BID pregabalin 150 mg capsule 150 mg PO TID cholecalciferol (vitamin D3) [Vitamin D3] 50 mcg (2,000 unit) Capsule 50 mcg PO DAILY calcium citrate-vitamin D3 [Citracal-D3 Petites] 200 mg-6.25 mcg (250 unit) Tablet 1 tablet PO DAILY Xtampza ER 13.5 mg cap,sprinkl,ER12hr(DONT CRUSH) 13.5 mg PO BID aspirin 81 mg Capsule 81 mg PO DAILY Cranberry Plus Vitamin C 450 mg PO DAILY Follow-up/Referrals: Rosanna,Kelly Bull MD [Primary Care Provider] - Time of Disposition: 20:13
[2024-11-02 17:06] LABS: Alanine Aminotransferase 30 U/L (6-50); Albumin Level 4.2 g/dL (3.5-5.1); Alkaline Phosphatase 77 U/L (38-126); Anion Gap 15 mmol/L (4-12); Aspartate Amino Transferase 35 U/L (17-59); Bilirubin,Total 1.0 mg/dL (0.2-1.3); Blood Urea Nitrogen 43 mg/dL (9-20); Calcium 9.7 mg/dL (8.4-10.2); Carbon Dioxide 18 mmol/L (22-30); Chloride 102 mmol/L (98-107); Estimated Glomerular Filt Rate 20; Glucose 169 mg/dL (65-110); Potassium 4.4 mmol/L (3.4-5.0); Sodium 135 mmol/L (137-145); Total Protein 7.7 g/dL (6.3-8.2)
[2024-11-02 17:08] LABS: INR 1.1; Prothrombin Time 14.6 Seconds (11.1-14.7)
[2024-11-02 17:09] LABS: Partial Thromboplastin Time 30.2 Seconds (22.3-36.8)
[2024-11-02 17:23] LABS: NT Pro B Type Natriuretic Pept 2150 pg/mL (19.9-100); Troponin I 0.045 ng/mL (0.000-0.034)
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
[2024-11-02 17:34] LABS: Band Neutrophils Percent 6 % (0-6); Lymphocytes Absolute Manual 0.66 K/mm3 (1.1-4.5); Lymphocytes Percent Manual 3.0 % (18-44); Monocytes Absolute Manual 1.78 K/mm3 (0.1-0.90); Monocytes Percent Manual 8 % (3-9); Neutrophils Absolute Manual 19.84 K/mm3 (1.3-6.7); Neutrophils Percent Manual 83 % (46-73); Total Cells Counted 100
[2024-11-02 17:35] LABS: Anisocytosis 2+; Schistocytes None Seen
[2024-11-02 17:36] LABS: Magnesium 1.8 mg/dL (1.6-2.3)
[2024-11-02 17:44] LABS: Influenza A QL RT-PCR Negative (Negative); Influenza B QL RT-PCR Negative (Negative); RSV RNA, RT-PCR Negative (Negative); SARS-CoV-2 RNA PCR Negative (Negative)
[2024-11-02 19:30] LABS: Add Urine Microscopic? YES; Appearance Urine Turbid (Clear); Glucose Urine UA Negative (Negative); Leukocyte Esterase Ur 3+ LEU/UL (Negative); Need Manual Microscopic Reviewed; Nitrate Urine Negative (Negative); Specific Grav Ur 1.012 (1.001-1.035)
--- NOTE | 2024-11-02 20:16 | ECG_ITS ---
Test Date: 2024-11-02 20:43:22 Measurements Intervals [place] Rate: 85 P: 64 UT: 180 QRS: -53 QRSD: 169 T: 108 QT: 410 QTc: 489 Interpretive Statements SINUS RHYTHM MARKED LEFT AXIS DEVIATION [QRS AXIS < -30] LEFT BUNDLE BRANCH BLOCK [120+ ms QRS DURATION, 80+ ms Q/S IN V1/V2, 85+ ms R IN I/aVL/V5/V6] Compared to ECG 11/02/2024 16:43:51 No significant changes Electronically Signed On 11-03-2024 22:30:52 CDT by Sarah Garcia M.D.
[2024-11-02] MEDS: SODIUM CHLORIDE 0.9% IV 1,000 ML 999 ML IV CONT ×2 (20:17→20:18)
[2024-11-02 20:53] LABS: Troponin I 0.055 ng/mL (0.000-0.034)
--- NOTE | 2024-11-02 21:54 | ADMGEN ---
This patient, Colt Hoff, was admitted to IMU Room 213-01. Patient/family oriented to hospital policies and general routines including ID bracelet, bed and alarms, visiting hours, pain management, procedures, bathroom and other care routines, personal items, smoking policy, room service/diet, and visiting hours. Information on how to activate the Rapid Response Team has been discussed. Patient/Family are encouraged to report perceived risks to care and to ask questions if they do not understand what they are told or what they should do.
[2024-11-02] MEDS: SODIUM CHLORIDE 0.9% IV 1,000 ML 125 ML IV CONT (22:47)
--- NOTE | 2024-11-02 23:55 | P.HP_ITS ---
H&P: HPI History of Present Illness Date/Time: 11/02/24 23:00 Chief Complaint: ?feeling cold? 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 However initial report according to ER was at patient brought in for shortness of breath and weakness. He had reported to the ER staff that he has been sleeping yesterday and woke up feeling short of breath. However at the time my evaluation the patient was encephalopathic and initially difficult to obtain history from. The patient did improve in mentation throughout my evaluation and told me that he had been feeling cold and shaking for about a week. He reports that he was having difficulty keeping his urostomy working. It sounds as if he was having decreased urine output. He reports loss of appetite and lower abdominal pain on palpation. He has had some nausea but denied vomiting. He was afebrile on presentation to the ER and it does not sound like he actually checked his temperature with a thermometer at home. He denied any changes in bowel habits. He denies any shortness of breath at the time of my evaluation but does report that he has been coughing. He does admit to still vaping on a daily basis. It is unclear if he has a cough at baseline. The patient is not a reliable historian at the time my evaluation and no family members were available to provide history. As such majority of the history was obtained from ER physician report calmer review of past medical records post internal and external well as external medication reconciliation. The patient told me that he had been for over 70 years. He was aware that he was in a hospital but it took and several attempts to provide any answer for location. He was oriented to month in year. At the time of my evaluation nursing staff had just empty the patient's urostomy of 300 mL of urine. When I went to pull the patient's covers back is cap from his urostomy became dislodged and the patient's urostomy bag emptied into his bed. He had approximately 150 mL in his back at the time of evaluation in the urine was clear in appearance. ER staff reports that the urine specimen obtained in the ER was obtained after cleaning the patient's external urostomy in placing a catheter in the urostomy for specimen. Patient was tachycardic in the ER and had a white count of 22.5 and UA suggestive of UTI. Noncontrast CT demonstrated right ileal conduit right pyelonephritis, trace pericardial and bilateral pleural effusions and hepatomegaly with steatosis. Patient received 2 L fluid bolus and was started on empiric antibiotic therapy with Rocephin. Blood cultures have been obtained and are pending. Review of Systems 2 Review of Systems: 12 systems were reviewed with pertinent positives and negatives per HPI. Except as documented in the HPI, all other systems were reviewed and are negative. Although patient was encephalopathic which limited review of systems somewhat. [facility] Past Medical History Medical History (Updated 11/03/24 @ 00:15 by Diana Espinosa DO) Emphysema lung Essential hypertension Hyperlipidemia Coronary artery disease Morbid obesity due to excess calories Depression with anxiety Renal cancer Bladder cancer Surgical History Surgical History (Updated 11/03/24 @ 00:10 by Diana Espinosa DO) History of total left knee replacement (TKR) (2004) History of ileal conduit (~2022) History of bladder surgery History of nephrectomy (~2022) [facility] urologist is Dr. Amilcar Orozco Family History Family History Father Acute myocardial infarction Hypertension Diabetes mellitus Social History Social History (Updated 11/03/24 @ 00:01 by Diana Espinosa DO) Social History: Patient lives at home with his . He used to smoke 1 pack of cigarettes per day but several years ago switched from smoking 2 vaping. He still uses nicotine in his vaping products. He used to drink on rare occasion and only in moderation but has not done so in many years. He denies illicit substance use. He retired from [employer]. Code status: Full code Surrogate decision maker: Smoking packs per day: 1 Smoking cigarettes per day: 20.0 Years smoked: 45 Smoking pack-years: 45.00 Smoking status: Current every day smoker Tobacco type: cigarettes and e-cigarettes/vaping Second hand tobacco smoke exposure: No Alcohol intake: never Substance use: never Substance use type: does not use Do You Feel Safe in your Home?: Yes Lack of Transportation: No Lack of Food: Never True Current Housing: I Have Housing Concerned About Future Housing: No Difficulty Paying Gas/Electric Bills: No Difficulty Paying for Meds: No Currently Unemployed: No Education: High School Diploma/GED Difficulty w/ Childcare or Family Care: No Spiritual care concerns: No Meds Home Medications and Allergies Home Medications ?Medication ?Instructions ?Recorded ?Confirmed ?Type Cranberry Plus Vitamin C 450 mg PO DAILY 05/11/22 11/02/24 History allopurinol 100 mg tablet 100 mg PO DAILY 05/11/22 11/02/24 History amlodipine 5 mg tablet 5 mg PO DAILY 05/11/22 11/02/24 History aspirin 81 mg capsule 81 mg PO DAILY 05/11/22 11/02/24 History atorvastatin 10 mg tablet 10 mg PO DAILY 05/11/22 11/02/24 History calcitriol 0.25 mcg capsule 0.25 mcg PO DAILY 05/11/22 11/02/24 History calcium 200 mg (as 1 tablet PO DAILY 05/11/22 11/02/24 History citrate)-vitamin D3 6.25 mcg (250 unit) tablet (Citracal-D3 Petites) cholecalciferol (vitamin D3) 50 50 mcg PO DAILY 05/11/22 11/02/24 History mcg (2,000 unit) capsule (Vitamin D3) fexofenadine 180 mg tablet 180 mg PO DAILY 05/11/22 11/02/24 History oxycodone 5 mg tablet 5 mg PO BID 05/11/22 11/02/24 History oxycodone myristate 13.5 mg 13.5 mg PO BID 05/11/22 11/02/24 History capsule sprinkle extend release 12hr(DON'T CRUSH) (Xtampza ER) pregabalin 150 mg capsule 150 mg PO TID 05/11/22 11/02/24 History ropinirole 2 mg tablet 2 mg PO HS 05/11/22 11/02/24 History sertraline 100 mg tablet 100 mg PO DAILY 05/11/22 11/02/24 History torsemide 20 mg tablet 20 mg PO DAILY 05/11/22 11/02/24 History trazodone 100 mg tablet 100 mg PO HS 05/11/22 11/02/24 History Allergies Allergy/AdvReac Type Severity Reaction Status Date / Time erythromycin base Allergy Mild Unknown Verified 11/02/24 22:40 Penicillins Allergy Mild Unknown Verified 11/02/24 22:40 iohexol (From contrast - CT, AdvReac Unknown Verified 11/02/24 22:40 X-RAY) ERYTHROMYCINS Allergy Mild Unknown Uncoded 11/02/24 22:40 Vital Signs Vital Signs - 24 hr 11/02/24 16:25 11/02/24 16:37 11/02/24 17:02 Temperature 97.5 F L 97.7 F Pulse Rate 139 H 123 H 115 H Respiratory Rate 32 H 35 H 21 H Blood Pressure 135/77 130/70 Pulse Oximetry 94 95 11/02/24 17:24 11/02/24 17:29 11/02/24 17:31 Temperature Pulse Rate 109 H 106 H 107 H Respiratory Rate 26 H 22 H 15 Blood Pressure 125/68 125/68 112/57 L Pulse Oximetry 95 94 93 11/02/24 18:43 11/02/24 18:52 11/02/24 19:00 Temperature 99.1 F Pulse Rate 99 100 98 Respiratory Rate 22 H 15 11 L Blood Pressure 120/72 Pulse Oximetry 94 95 93 11/02/24 19:01 11/02/24 19:31 11/02/24 20:06 Temperature Pulse Rate 91 94 94 Respiratory Rate 11 L 16 15 Blood Pressure 105/54 L 117/62 103/69 Pulse Oximetry 94 95 94 11/02/24 20:31 11/02/24 20:32 11/02/24 20:45 Temperature Pulse Rate 81 86 90 Respiratory Rate 6 L 13 14 Blood Pressure 121/51 L Pulse Oximetry 93 95 98 11/02/24 21:59 11/02/24 22:00 Temperature 98.3 F Pulse Rate 119 H 122 H Respiratory Rate 15 Blood Pressure 154/72 H Pulse Oximetry 95 Exam 2 Narrative: Weight 148.3 kg BMI 44.3 Const: Other: Acutely ill-appearing, morbidly obese, appears stated age HENMT: Other: Mucous membranes are tacky, no oral pharyngeal erythema, markedly crowded posterior oropharynx, edentulous upper and lower jaw Eyes: Other: Positive conjunctival pallor, no scleral icterus Neck: Other: Large neck circumference, no lymphadenopathy Resp: Other: Decreased breath sounds bilaterally, no increased work of breathing Cardio: Other: Tachycardic heart rate in the 120s, 2+ bilateral radial and pedal pulses, heart sounds difficult to auscultate GI: Other: Distended, diffusely tender in the lower abdomen, urostomy present with good urine output, normal active bowel sounds Skin: Other: Cool to touch, dry, goose bumps noted, 4-5 second cap refill Neuro: Other: Alert oriented x4 but slow to respond, intermittent nonsensical responses, will answer direct questions but is not caring a conversation, no facial asymmetry, no localizing neurologic deficits noted during the course of conversation Extrem: Other: 5/5 performance test consultant strength bilateral upper extrem ities Psych: Other: Confused, cooperative H&P: Results Labs Labs: Laboratory Tests 11/02/24 16:44 11/02/24 16:44 11/02/24 11/02/24 11/02/24 16:44 16:51 17:03 WBC 22.3 H RBC 4.86 Hgb 15.4 Hct 45.4 MCV 93.4 MCH 31.7 MCHC 33.9 RDW 15.2 H Plt Count 245 MPV 9.9 Immature Gran % (Auto) Not Reportable Neut % (Auto) Not Reportable Lymph % (Auto) Not Reportable Spink % (Auto) Not Reportable Eos % (Auto) Not Reportable Baso % (Auto) Not Reportable Lymph # (Auto) Not Reportable Spink # (Auto) Not Reportable Eos # (Auto) Not Reportable Baso # (Auto) Not Reportable Abs Immat Gran (auto) Not Reportable Absolute Neuts (auto) Not Reportable Absolute Nucleated RBC Not Reportable Total Counted 100 Neutrophils % (Manual) 83 H Band Neutrophils % 6 Lymphocytes % (Manual) 3.0 L Monocytes % (Manual) 8 Nucleated RBC % Not Reportable Abs Neuts (Manual) 19.84 H Abs Lymphs (Manual) 0.66 L Abs Monocytes (Manual) 1.78 H Platelet Estimate Adequate Clumped Platelets Present Anisocytosis 2+ Schistocytes None seen PT 14.6 INR 1.1 APTT 30.2 Sodium 135 L Potassium 4.4 Chloride 102 Carbon Dioxide 18 L Anion Gap 15 H BUN 43 H D Creatinine 3.13 H Estim Creat Clear Calc Not Reportable Estimated GFR 20 L Glucose 169 H Lactic Acid 3.6 H Calcium 9.7 Magnesium 1.8 Total Bilirubin 1.0 AST 35 ALT 30 Alkaline Phosphatase 77 Troponin I 0.045 H* NT-Pro-B Natriuret Pep 2150 H Total Protein 7.7 Albumin 4.2 Urine Color Urine Appearance Urine pH Ur Specific [place] Urine Protein Urine Glucose (UA) Urine Ketones Ur Blood (Man) Urine Nitrate Urine Bilirubin Urine Urobilinogen Add Ur Microanalysis Leukocyte Esterase Rfl Urine RBC Urine WBC Ur Squamous Epith Cells Urine Bacteria Urine Casts Influenza A (RT-PCR) Negative Influenza B (RT-PCR) Negative RSV (RT-PCR) Negative SARS-CoV-2 RNA (RT-PCR) Negative 11/02/24 11/02/24 18:46 20:16 WBC RBC Hgb Hct MCV MCH MCHC RDW Plt Count MPV Immature Gran % (Auto) Neut % (Auto) Lymph % (Auto) Spink % (Auto) Eos % (Auto) Baso % (Auto) Lymph # (Auto) Spink # (Auto) Eos # (Auto) Baso # (Auto) Abs Immat Gran (auto) Absolute Neuts (auto) Absolute Nucleated RBC Total Counted Neutrophils % (Manual) Band Neutrophils % Lymphocytes % (Manual) Monocytes % (Manual) Nucleated RBC % Abs Neuts (Manual) Abs Lymphs (Manual) Abs Monocytes (Manual) Platelet Estimate Clumped Platelets Anisocytosis Schistocytes PT INR APTT Sodium Potassium Chloride Carbon Dioxide Anion Gap BUN Creatinine Estim Creat Clear Calc Estimated GFR Glucose Lactic Acid 1.1 Calcium Magnesium Total Bilirubin AST ALT Alkaline Phosphatase Troponin I 0.055 H* D NT-Pro-B Natriuret Pep Total Protein Albumin Urine Color Yellow Urine Appearance Turbid H Urine pH 6.0 Ur Specific [place] 1.012 Urine Protein 2+ H Urine Glucose (UA) Negative Urine Ketones Negative Ur Blood (Man) 2+ H Urine Nitrate Negative Urine Bilirubin Negative Urine Urobilinogen 0.2 Add Ur Microanalysis Reviewed Leukocyte Esterase Rfl 3+ H Urine RBC 3-5 H Urine WBC >100 H Ur Squamous Epith Cells None seen Urine Bacteria 4+ H Urine Casts 6-10 Influenza A (RT-PCR) Influenza B (RT-PCR) RSV (RT-PCR) SARS-CoV-2 RNA (RT-PCR) Impressions Chest X-Ray 11/02/24 17:51 IMPRESSION: No acute cardiopulmonary process. Abdomen/Pelvis CT 11/02/24 17:56 IMPRESSION: Trace pericardial effusion. Trace bilateral pleural effusions. Hepatomegaly with steatosis. Status post right ileal conduit. Moderate right perinephric stranding, mild right hydronephrosis and periureteral stranding, may represent anastomotic stricture and/or ascending infection. EKG: Ectopic atrial tachycardia rate 116 left axis deviation left bundle-branch block and QTC of 491 repeat EKG was markedly distorted by baseline artifact making interpretation limited. All imaging and EKGs personally reviewed and interpreted. And unless stated otherwise agree with radiologic and cardiology interpretation. Assessment and Plan Assessment and plan (1) Sepsis: Qualifiers: Sepsis type: sepsis due to unspecified organism Sepsis acute organ dysfunction status: with acute organ dysfunction Severe sepsis acute organ dysfunction type: encephalopathy Severe sepsis shock status: without septic shock Qualified Code(s): A41.9 - Sepsis, unspecified organism; R65.20 - Severe sepsis without septic shock; G93.41 - Metabolic encephalopathy Code(s): A41.9 - Sepsis, unspecified organism Status: Acute (2) Acute pyelonephritis: Code(s): N10 - Acute pyelonephritis Status: Acute (3) Acute kidney injury superimposed on stage 4 chronic kidney disease: Code(s): N17.9 - Acute kidney failure, unspecified; N18.4 - Chronic kidney disease, stage 4 (severe) Status: Acute (4) Solitary right kidney: Status: Acute (5) Elevated troponin: Code(s): R79.89 - Other specified abnormal findings of blood chemistry Status: Acute Plan Patient has sepsis due to pyelonephritis complicated by unilateral kidney and chronic ileal conduit. Sepsis is resulted in encephalopathy and acute on chronic kidney injury. Patient renal insufficiency is worsened by concomitant dehydration. Blood cultures and urine cultures have been obtained. Patient received 2 L fluid bolus and still appears intervascular volume depleted. He had echocardiogram in 2022 that demonstrated normal EF with abnormal diastolic function. Will complete the patient's 30 mL/kilos fluid bolus by giving an additional 1.5 L normal saline. Will monitor I&O's closely. Will continue Rocephin that was started in the ER. Patient's urine cultures from 2022 were reviewed he grew out Enterococcus at that time what that was sensitive to cephalosporins. Will continue maintenance IV fluid hydration after initial bolus. Will repeat CBC and electrolyte panel in a.m.. Will avoid nephrotoxic medications will hold patient's home diuretic therapy. Patient is encephalopathic likely due to sepsis but he is also on multiples sedating medications. Will hold the patient's home sedating medications for this evening and will re-evaluate mental status if improved will resume patient's home pain medications and stopping the medications in a.m.. Patient does have hemoconcentration noted on labs as well as well elevated creatinine suggesting dehydration with plan as discussed above. Patient does have elevated troponin likely due to demand ischemia troponin profile is relatively flat and acute coronary event is unlikely. Given the patient is uncertain tachycardic rhythm will check magnesium with a.m. labs. Tachyarrhythmias likely due to sinus tachycardia from sepsis. Quality VTE Prophylaxis VTE prophylaxis: pharmacologic ordered (Heparin 5000 units subQ q.8 hours) Hospitalist [facility] Advance Care Plan I have confirmed that the patient's Advanced Care Plan is present, code status is documented, or surrogate decision maker is listed in patient medical record.: Yes Medication Reconciliation I have utilized all available resources to obtain, update and review the patients current medications (includes all prescriptions, OTC, herbals, cannabis, and nutritional supplements).: Yes
[2024-11-03] VITALS (16 sets, daily range): BP systolic 125–176; BP diastolic 41–71; PULSE 75–125; RESP 15–22; TEMP 36.4–37.4; O2SAT 91–99
[2024-11-03] MEDS: oxyCODONE HCL (*CRX) 5 MG TAB IR PO ×2 (00:42→06:54)
[2024-11-03] MEDS: SODIUM CHLORIDE 0.9% IV 500 ML IV CONT (00:55)
[2024-11-03] MEDS: SODIUM CHLORIDE 0.9% IV 1,000 ML 999 ML IV CONT (01:38)
[2024-11-03 04:13] LABS: Hematocrit 41.5 % (42.0-52.0); Hemoglobin 13.4 g/dL (14.0-18.0); Immature Granulocyte Percent A 1.0 % (0-0.5); Lymphocytes Absolute Auto 0.71 K/mm3 (0.9-3.2); Mean Corpuscular HGB Conc 32.3 g/dl (32-36); Mean Corpuscular Hemoglobin 31.0 pg (26-34); Mean Corpuscular Volume 96.1 fl (80-100); Nucleated Red Blood Cells Absolute Auto 0.000 K/mm3 (0.0-0.012); Nucleated Red Blood Cells Perc 0.0 % (0.0-0.2); Platelet Count Result 194 k/mm3 (150-375); Red Blood Count 4.32 M/mm3 (4.6-6.20); White Blood Count 20.2 K/mm3 (4.5-10.0)
[2024-11-03 04:27] LABS: Alanine Aminotransferase 24 U/L (6-50); Albumin Level 3.6 g/dL (3.5-5.1); Alkaline Phosphatase 68 U/L (38-126); Anion Gap 12 mmol/L (4-12); Aspartate Amino Transferase 28 U/L (17-59); Bilirubin,Total 0.9 mg/dL (0.2-1.3); Blood Urea Nitrogen 38 mg/dL (9-20); Calcium 8.5 mg/dL (8.4-10.2); Carbon Dioxide 14 mmol/L (22-30); Chloride 107 mmol/L (98-107); Estimated CRCL calculation 34 ml/min; Estimated Glomerular Filt Rate 23; Glucose 178 mg/dL (65-110); Magnesium 1.7 mg/dL (1.6-2.3); Potassium 3.8 mmol/L (3.4-5.0); Sodium 133 mmol/L (137-145); Total Protein 6.7 g/dL (6.3-8.2)
--- NOTE | 2024-11-03 07:43 | WPDURCON ---
Assessment and Plan Assessment and plan (1) Solitary right kidney: Status: Acute Assessment and Plan: Nephrectomy due to renal cancer (2) Acute kidney injury superimposed on stage 4 chronic kidney disease: Code(s): N17.9 - Acute kidney failure, unspecified; N18.4 - Chronic kidney disease, stage 4 (severe) Status: Acute Assessment and Plan: Creatinine improving (3) Acute pyelonephritis: Code(s): N10 - Acute pyelonephritis Status: Acute Assessment and Plan: Continue antibiotics. Urine culture pending. Treat with culture specific antibiotics times 14 days (4) Hydronephrosis: Code(s): N13.30 - Unspecified hydronephrosis Status: Acute Assessment and Plan: Likely physiologic in nature. Doubt obstruction due to improving renal function and urine output (5) Right renal stone: Code(s): N20.0 - Calculus of kidney Status: Acute Assessment and Plan: Observation. Can be managed by his regular urologist (6) History of renal cell cancer: Code(s): Z85.528 - Personal history of other malignant neoplasm of kidney Status: Acute (7) History of bladder cancer: Code(s): Z85.51 - Personal history of malignant neoplasm of bladder Status: Acute Plan No plan for acute urologic intervention. Call with questions. Follow-up regular urologist upon discharge Urology Consult Note HPI Date Seen: 11/03/24 Requesting Physician: Diana Espinosa DO Primary Care Provider: Kelly MarteMD Consult Narrative Narrative: Colt Hoff is a 74 year old male with a history of bladder cancer and renal cancer. He is status post cystectomy with ileal conduit as well as left nephrectomy. This was all done at outside hospital by Dr. Kobi Aaron. He is currently in the hospital with symptoms of pyelonephritis. He noted fever, chills, right flank pain, confusion. This prompted a visit to the emergency room and later admission. White counts found to be elevated. He has baseline renal insufficiency. He is feeling improved on antibiotics. Creatinine and white count have improved. CT scan shows evidence of right pyelonephritis and mild right hydronephrosis which is likely physiologic in nature due to his ileal conduit. He is making urine. I doubt there is a significant element of obstruction of his right kidney Review of Systems Review of Systems: All systems reviewed & are unremarkable except as noted in HPI and below PMFSH Past Medical History Medical History (Updated 11/03/24 @ 07:47 by Adam Root MD) History of bladder cancer Emphysema lung Essential hypertension Hyperlipidemia Coronary artery disease Morbid obesity due to excess calories Depression with anxiety Renal cancer Bladder cancer Surgical History Surgical History History of total left knee replacement (TKR) (2004) History of ileal conduit (~2022) History of bladder surgery History of nephrectomy (~2022) [facility] urologist is Dr. Amilcar Orozco Family History Family History Father Acute myocardial infarction Hypertension Diabetes mellitus Social History Social History Social History: Patient lives at home with his . He used to smoke 1 pack of cigarettes per day but several years ago switched from smoking 2 vaping. He still uses nicotine in his vaping products. He used to drink on rare occasion and only in moderation but has not done so in many years. He denies illicit substance use. He retired from [employer]. Code status: Full code Surrogate decision maker: Smoking packs per day: 1 Smoking cigarettes per day: 20.0 Years smoked: 45 Smoking pack-years: 45.00 Smoking status: Current every day smoker Tobacco type: cigarettes and e-cigarettes/vaping Second hand tobacco smoke exposure: No Alcohol intake: never Substance use: never Substance use type: does not use Do You Feel Safe in your Home?: Yes Lack of Transportation: No Lack of Food: Never True Current Housing: I Have Housing Concerned About Future Housing: No Difficulty Paying Gas/Electric Bills: No Difficulty Paying for Meds: No Currently Unemployed: No Education: High School Diploma/GED Difficulty w/ Childcare or Family Care: No Spiritual care concerns: No Meds Home Medications and Allergies Home Medications ?Medication ?Instructions ?Recorded ?Confirmed ?Type Cranberry Plus Vitamin C 450 mg PO DAILY 05/11/22 11/02/24 History allopurinol 100 mg tablet 100 mg PO DAILY 05/11/22 11/02/24 History amlodipine 5 mg tablet 5 mg PO DAILY 05/11/22 11/02/24 History aspirin 81 mg capsule 81 mg PO DAILY 05/11/22 11/02/24 History atorvastatin 10 mg tablet 10 mg PO DAILY 05/11/22 11/02/24 History calcitriol 0.25 mcg capsule 0.25 mcg PO DAILY 05/11/22 11/02/24 History calcium 200 mg (as 1 tablet PO DAILY 05/11/22 11/02/24 History citrate)-vitamin D3 6.25 mcg (250 unit) tablet (Citracal-D3 Petites) cholecalciferol (vitamin D3) 50 50 mcg PO DAILY 05/11/22 11/02/24 History mcg (2,000 unit) capsule (Vitamin D3) fexofenadine 180 mg tablet 180 mg PO DAILY 05/11/22 11/02/24 History oxycodone 5 mg tablet 5 mg PO BID 05/11/22 11/02/24 History oxycodone myristate 13.5 mg 13.5 mg PO BID 05/11/22 11/02/24 History capsule sprinkle extend release 12hr(DON'T CRUSH) (Xtampza ER) pregabalin 150 mg capsule 150 mg PO TID 05/11/22 11/02/24 History ropinirole 2 mg tablet 2 mg PO HS 05/11/22 11/02/24 History sertraline 100 mg tablet 100 mg PO DAILY 05/11/22 11/02/24 History torsemide 20 mg tablet 20 mg PO DAILY 05/11/22 11/02/24 History trazodone 100 mg tablet 100 mg PO HS 05/11/22 11/02/24 History Allergies Allergy/AdvReac Type Severity Reaction Status Date / Time erythromycin base Allergy Mild Unknown Verified 11/02/24 22:40 Penicillins Allergy Mild Unknown Verified 11/02/24 22:40 iohexol (From contrast - CT, AdvReac Unknown Verified 11/02/24 22:40 X-RAY) ERYTHROMYCINS Allergy Mild Unknown Uncoded 11/02/24 22:40 Vital Signs Vital Signs - 24 hr 11/02/24 16:25 11/02/24 16:37 11/02/24 17:02 Temperature 97.5 F L 97.7 F Pulse Rate 139 H 123 H 115 H Respiratory Rate 32 H 35 H 21 H Blood Pressure 135/77 130/70 Pulse Oximetry 94 95 Oxygen Delivery 11/02/24 17:24 11/02/24 17:29 11/02/24 17:31 Temperature Pulse Rate 109 H 106 H 107 H Respiratory Rate 26 H 22 H 15 Blood Pressure 125/68 125/68 112/57 L Pulse Oximetry 95 94 93 Oxygen Delivery 11/02/24 18:43 11/02/24 18:52 11/02/24 19:00 Temperature 99.1 F Pulse Rate 99 100 98 Respiratory Rate 22 H 15 11 L Blood Pressure 120/72 Pulse Oximetry 94 95 93 Oxygen Delivery 11/02/24 19:01 11/02/24 19:31 11/02/24 20:06 Temperature Pulse Rate 91 94 94 Respiratory Rate 11 L 16 15 Blood Pressure 105/54 L 117/62 103/69 Pulse Oximetry 94 95 94 Oxygen Delivery 11/02/24 20:31 11/02/24 20:32 11/02/24 20:45 Temperature Pulse Rate 81 86 90 Respiratory Rate 6 L 13 14 Blood Pressure 121/51 L Pulse Oximetry 93 95 98 Oxygen Delivery 11/02/24 21:45 11/02/24 21:45 11/02/24 21:59 Temperature 98.3 F Pulse Rate 123 H 119 H Respiratory Rate 15 Blood Pressure 154/72 H Pulse Oximetry 95 Oxygen Delivery Room Air 11/02/24 22:00 11/03/24 00:00 11/03/24 00:00 Temperature 98.3 F Pulse Rate 122 H 125 H Respiratory Rate 15 Blood Pressure 160/67 H Pulse Oximetry 95 Oxygen Delivery Room Air 11/03/24 00:00 11/03/24 01:43 11/03/24 02:00 Temperature 99.4 F Pulse Rate 123 H 111 H 108 H Respiratory Rate Blood Pressure Pulse Oximetry Oxygen Delivery 11/03/24 04:00 11/03/24 04:00 11/03/24 04:00 Temperature 98.9 F Pulse Rate 123 H 90 Respiratory Rate 15 Blood Pressure 145/41 H Pulse Oximetry 99 Oxygen Delivery Room Air 11/03/24 06:00 Temperature Pulse Rate 84 Respiratory Rate Blood Pressure Pulse Oximetry Oxygen Delivery Exam Const: General: cooperative and tired appearing Orientation/consciousness: No lethargic HENMT: Head: normal to inspection Eyes: General: appearance normal, both eyes and all related structures Neck: Neck: normal visual inspection Resp: Effort & Inspection: normal respiratory effort and no cough GI: Inspection: normal to inspection Other: Ostomy in place Clear yellow urine in the bag Skin: General skin exam: normal color Psych: Appearance: grossly normal Results Labs 11/03/24 04:06 11/03/24 04:06 Labs: Short CBC 11/02/24 11/03/24 Range/Units 16:44 04:06 WBC 22.3 H 20.2 H (4.5-10.0) K/mm3 Hgb 15.4 13.4 L (14.0-18.0) g/dL Hct 45.4 41.5 L (42.0-52.0) % Plt Count 245 194 (150-375) k/mm3 BMP 11/02/24 11/03/24 16:44 04:06 Sodium 135 L 133 L Potassium 4.4 3.8 Chloride 102 107 Carbon Dioxide 18 L 14 L BUN 43 H D 38 H Creatinine 3.13 H 2.72 H Glucose 169 H 178 H Calcium 9.7 8.5 Cardiac Enzymes 11/02/24 11/02/24 Range/Units 16:44 20:16 Troponin I 0.045 H* 0.055 H* D (0.000-0.034) ng/mL Liver Function 11/02/24 11/03/24 Range/Units 16:44 04:06 Total Bilirubin 1.0 0.9 (0.2-1.3) mg/dL AST 35 28 (17-59) U/L ALT 30 24 (6-50) U/L Alkaline Phosphatase 77 68 (38-126) U/L Albumin 4.2 3.6 (3.5-5.1) g/dL Urine 11/02/24 Range/Units 18:46 Urine Color Yellow (Yellow) Urine Appearance Turbid H (Clear) Urine pH 6.0 (5.0-9.0) Ur Specific [place] 1.012 (1.001-1.035) Urine Protein 2+ H (Negative) mg/dL Urine Glucose (UA) Negative (Negative) mg/dL Imaging My impression: Imaging reviewed and report reviewed Mild hydronephrosis. Likely physiologic. Right lower pole stone
[2024-11-03] MEDS: SODIUM CHLORIDE 0.9% IV 1,000 ML 125 ML IV CONT ×2 (08:39→20:40)
[2024-11-03] MEDS: CHOLECALCIFEROL (VITAMIN D3) 25 MCG (1,000 UNITS) TABLET 50 MCG PO (08:40)
[2024-11-03] MEDS: oxyCODONE HCL (*CRX) 10 MG TAB SR 12HR PO ×2 (08:40→20:40)
[2024-11-03] MEDS: SERTRALINE HCL 50 MG TABLET 100 MG PO (08:40)
[2024-11-03] MEDS: LORATADINE 10 MG TABLET PO (08:41)
[2024-11-03] MEDS: ASPIRIN 81 MG ENTERIC TABLET PO (08:41)
[2024-11-03] MEDS: PREGABALIN (*CRX) 75 MG CAPSULE 150 MG PO ×3 (08:41→16:24)
[2024-11-03] MEDS: CALCIUM CITRATE 315 MG/VITAMIN D 6.25 MCG (250 UNITS) TAB 1 TABLET PO (14:32)
[2024-11-03] MEDS: cefTRIAXone 2 GM in SODIUM CHLORIDE 0.9% IV 100 ML 200 ML IVPB (16:24)
--- NOTE | 2024-11-03 18:32 | P.PNIM_ITS ---
Progress Note: A&P Assessment and Plan (1) Sepsis: Qualifiers: Sepsis type: sepsis due to unspecified organism Sepsis acute organ dysfunction status: with acute organ dysfunction Severe sepsis acute organ dysfunction type: encephalopathy Severe sepsis shock status: without septic shock Qualified Code(s): A41.9 - Sepsis, unspecified organism; R65.20 - Severe sepsis without septic shock; G93.41 - Metabolic encephalopathy Code(s): A41.9 - Sepsis, unspecified organism Status: Acute (2) Acute pyelonephritis: Code(s): N10 - Acute pyelonephritis Status: Acute (3) Acute kidney injury superimposed on stage 4 chronic kidney disease: Code(s): N17.9 - Acute kidney failure, unspecified; N18.4 - Chronic kidney disease, stage 4 (severe) Status: Acute (4) Solitary right kidney: Status: Acute (5) Elevated troponin: Code(s): R79.89 - Other specified abnormal findings of blood chemistry Status: Acute Plan Patient has sepsis due to pyelonephritis complicated by unilateral kidney and chronic ileal conduit. Sepsis is resulted in encephalopathy and acute on chronic kidney injury. Patient renal insufficiency is worsened by concomitant dehydration. Blood cultures and urine cultures have been obtained. Patient received 2 L fluid bolus and still appears intervascular volume depleted. He had echocardiogram in 2022 that demonstrated normal EF with abnormal diastolic function. Will complete the patient's 30 mL/kilos fluid bolus by giving an additional 1.5 L normal saline. Will monitor I&O's closely. Will continue Rocephin that was started in the ER. Patient's urine cultures from 2022 were reviewed he grew out Enterococcus at that time what that was sensitive to cephalosporins. Will continue maintenance IV fluid hydration after initial bolus. Will repeat CBC and electrolyte panel in a.m.. Will avoid nephrotoxic medications will hold patient's home diuretic therapy. Patient is encephalopathic likely due to sepsis but he is also on multiples sedating medications. Will hold the patient's home sedating medications for this evening and will re-evaluate mental status if improved will resume patient's home pain medications and stopping the medications in a.m.. Patient does have hemoconcentration noted on labs as well as well elevated creatinine suggesting dehydration with plan as discussed above. Patient does have elevated troponin likely due to demand ischemia troponin profile is relatively flat and acute coronary event is unlikely. Given the patient is uncertain tachycardic rhythm will check magnesium with a.m. labs. Tachyarrhythmias likely due to sinus tachycardia from sepsis. patient was seen by his urologist suspect patient symptoms are stemming from pyelonephritis, patient blood culture is growing gram negative bacilli isolated, discuss with clinical pharmacist, started patient on ceftriaxone 2 g daily, patient stats feeling much better compared when he arrived, will monitor, Subjective Date/time seen: 11/03/24 18:32 Interval history: feeling cold? 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 However initial report according to ER was at patient brought in for shortness of breath and weakness. He had reported to the ER staff that he has been sleeping yesterday and woke up feeling short of breath. However at the time my evaluation the patient was encephalopathic and initially difficult to obtain history from. The patient did improve in mentation throughout my evaluation and told me that he had been feeling cold and shaking for about a week. He reports that he was having difficulty keeping his urostomy working. It sounds as if he was having decreased urine output. He reports loss of appetite and lower abdominal pain on palpation. He has had some nausea but denied vomiting. He was afebrile on presentation to the ER and it does not sound like he actually checked his temperature with a thermometer at home. He denied any changes in bowel habits. He denies any shortness of breath at the time of my evaluation but does report that he has been coughing. He does admit to still vaping on a daily basis. It is unclear if he has a cough at baseline. The patient is not a reliable historian at the time my evaluation and no family members were available to provide history. As such majority of the history was obtained from ER physician report calmer review of past medical records post internal and external well as external medication reconciliation. The patient told me that he had been for over 70 years. He was aware that he was in a hospital but it took and several attempts to provide any answer for location. He was oriented to month in year. At the time of my evaluation nursing staff had just empty the patient's urostomy of 300 mL of urine. When I went to pull the patient's covers back is cap from his urostomy became dislodged and the patient's urostomy bag emptied into his bed. He had approximately 150 mL in his back at the time of evaluation in the urine was clear in appearance. ER staff reports that the urine specimen obtained in the ER was obtained after cleaning the patient's external urostomy in placing a catheter in the urostomy for specimen. Patient was tachycardic in the ER and had a white count of 22.5 and UA suggestive of UTI. Noncontrast CT demonstrated right ileal conduit right pyelonephritis, trace pericardial and bilateral pleural effusions and hepatomegaly with steatosis. Patient received 2 L fluid bolus and was started on empiric antibiotic therapy with Rocephin. Blood cultures have been obtained and are pending. patient was seen by his urologist suspect patient symptoms are stemming from pyelonephritis, patient blood culture is growing gram negative bacilli isolated, discuss with clinical pharmacist, started patient on ceftriaxone 2 g daily, patient stats feeling much better comared when he arrived, will monitor, Review of Systems Review of Systems: 12 systems were reviewed with pertinent positives and negatives per HPI. Except as documented in the HPI, all other systems were reviewed and are negative. Although patient was encephalopathic which limited review of systems somewhat. All systems reviewed & are unremarkable except as noted in HPI and below Exam Narrative: Patient is comfortable, NAD HEENT: eyes are clear and none icteric LUNGS:CTA HEART: RR S1S2 ABD: BS+, Soft and nontender Lower extremities: no edema SKIN: nonjaundiced Neuro: grossly intact. Objective Data Vital Signs Vital Signs: Vital Signs - 24 hr 11/02/24 18:43 11/02/24 18:52 11/02/24 19:00 Temperature 37.3 C Pulse Rate 99 100 98 Respiratory Rate 22 H 15 11 L Blood Pressure 120/72 Pulse Oximetry 94 95 93 Oxygen Delivery 11/02/24 19:01 11/02/24 19:31 11/02/24 20:06 Temperature Pulse Rate 91 94 94 Respiratory Rate 11 L 16 15 Blood Pressure 105/54 L 117/62 103/69 Pulse Oximetry 94 95 94 Oxygen Delivery 11/02/24 20:31 11/02/24 20:32 11/02/24 20:45 Temperature Pulse Rate 81 86 90 Respiratory Rate 6 L 13 14 Blood Pressure 121/51 L Pulse Oximetry 93 95 98 Oxygen Delivery 11/02/24 21:45 11/02/24 21:45 11/02/24 21:59 Temperature 36.8 C Pulse Rate 123 H 119 H Respiratory Rate 15 Blood Pressure 154/72 H Pulse Oximetry 95 Oxygen Delivery Room Air 11/02/24 22:00 11/03/24 00:00 11/03/24 00:00 Temperature 36.8 C Pulse Rate 122 H 125 H Respiratory Rate 15 Blood Pressure 160/67 H Pulse Oximetry 95 Oxygen Delivery Room Air 11/03/24 00:00 11/03/24 01:43 11/03/24 02:00 Temperature 37.4 C Pulse Rate 123 H 111 H 108 H Respiratory Rate Blood Pressure Pulse Oximetry Oxygen Delivery 11/03/24 04:00 11/03/24 04:00 11/03/24 04:00 Temperature 37.2 C Pulse Rate 123 H 90 Respiratory Rate 15 Blood Pressure 145/41 H Pulse Oximetry 99 Oxygen Delivery Room Air 11/03/24 06:00 11/03/24 08:00 11/03/24 08:00 Temperature 36.4 C L Pulse Rate 84 94 91 Respiratory Rate 22 H 22 H Blood Pressure 154/56 H Pulse Oximetry 95 95 Oxygen Delivery Room Air 11/03/24 08:00 11/03/24 10:00 11/03/24 12:00 Temperature Pulse Rate 91 77 110 H Respiratory Rate 20 Blood Pressure Pulse Oximetry 96 Oxygen Delivery Room Air 11/03/24 12:00 11/03/24 12:50 11/03/24 14:00 Temperature 37.0 C Pulse Rate 80 110 H 81 Respiratory Rate 20 Blood Pressure 139/61 Pulse Oximetry 96 Oxygen Delivery 11/03/24 16:00 11/03/24 16:00 11/03/24 16:40 Temperature 37.3 C Pulse Rate 99 95 95 Respiratory Rate 22 H 22 H Blood Pressure 176/71 H Pulse Oximetry 95 95 Oxygen Delivery Room Air 11/03/24 18:00 Temperature Pulse Rate 86 Respiratory Rate Blood Pressure Pulse Oximetry Oxygen Delivery Intake/Output Intake/Output: Intake & Output 10/31/24 11/01/24 11/02/24 11/03/24 23:59 23:59 23:59 23:59 Intake Total 2049 3940 Output Total 2375 Balance 2049 1565 Meds/Results Medications: Active Medications Generic Name Dose Route Start Last Admin Trade Name Freq PRN Reason Stop Dose Admin Acetaminophen 650 mg 11/02/24 20:06 Acetaminophen 325 Mg Tablet PO Q4H PRN Mild Pain (1-3) or Fever Allopurinol 100 mg 11/03/24 09:00 11/03/24 08:41 Allopurinol 100 Mg Tablet PO 100 mg DAILY ONDINA Administration Amlodipine Besylate 5 mg 11/03/24 09:00 11/03/24 08:43 Amlodipine Besylate 5 Mg Tablet PO 5 mg DAILY ONDINA Administration Aspirin 81 mg 11/03/24 09:00 11/03/24 08:41 Aspirin 81 Mg Enteric Tablet PO 81 mg QAM ONDINA Administration Calcitriol 0.25 mcg 11/03/24 09:00 11/03/24 08:41 Calcitriol 0.25 Mcg Capsule PO 0.25 mcg DAILY ONDINA Administration Calcium Citrate 1 tablet 11/03/24 09:00 11/03/24 14:32 Calcium Citrate 315 Mg/Vitamin D 6.25 Mcg (250 Units) Tab PO 1 tablet QAM ONDINA Administration Heparin Sodium (Porcine) 5,000 units 11/03/24 06:00 11/03/24 14:32 Heparin Sodium 5,000 Units/Ml Vial SUB-Q 5,000 units Q8HR ONDINA Administration Sodium Chloride 1,000 mls @ 125 mls/hr 11/02/24 20:10 11/03/24 13:11 Normal Saline Iv IV CONT Not Given .Q8H ONDINA Ceftriaxone Sodium 2 gm/ 100 mls @ 200 mls/hr 11/03/24 16:00 11/03/24 16:24 Sodium Chloride IVPB 200 mls/hr Q24H ONDINA Administration Loratadine 10 mg 11/03/24 09:00 11/03/24 08:41 Loratadine 10 Mg Tablet PO 10 mg QAM ONDINA Administration Ondansetron HCl 4 mg 11/02/24 20:06 Ondansetron Inj 4 Mg/2 Ml Vial IV PUSH Q4H PRN Nausea Oxycodone HCl 10 mg 11/03/24 09:00 11/03/24 08:40 Oxycodone Hcl (*Crx) 10 Mg Tab Sr 12hr PO 10 mg Q12HR ONDINA Administration Oxycodone HCl 5 mg 11/03/24 05:48 07/07/25 06:54 Oxycodone Hcl (*Crx) 5 Mg Tab Ir PO 5 mg Q6H PRN Administration Pain 7-10 Pregabalin 150 mg 11/03/24 09:00 11/03/24 16:24 Pregabalin (*Crx) 75 Mg Capsule PO 150 mg TID ONDINA Administration Ropinirole HCl 2 mg 11/03/24 21:00 Ropinirole Hcl 1 Mg Tablet PO HS ONDINA Sertraline HCl 100 mg 11/03/24 09:00 11/03/24 08:40 Sertraline Hcl 50 Mg Tablet PO 100 mg DAILY ONDINA Administration Trazodone HCl 100 mg 11/03/24 21:00 Trazodone Hcl 50 Mg Tablet PO HS ONDINA Vitamin D 50 mcg 11/03/24 09:00 11/03/24 08:40 Cholecalciferol (Vitamin D3) 25 Mcg (1,000 Units) Tablet PO 50 mcg DAILY ONDINA Administration Radiology Results: ITS Impressions Chest X-Ray 11/02/24 17:51 IMPRESSION: No acute cardiopulmonary process. Abdomen/Pelvis CT 11/02/24 17:56 IMPRESSION: Trace pericardial effusion. Trace bilateral pleural effusions. Hepatomegaly with steatosis. Status post right ileal conduit. Moderate right perinephric stranding, mild right hydronephrosis and periureteral stranding, may represent anastomotic stricture and/or ascending infection. Labs Labs: Laboratory Results - last 24 hr 11/02/24 11/02/24 11/03/24 18:46 20:16 04:06 WBC 20.2 H RBC 4.32 L Hgb 13.4 L Hct 41.5 L MCV 96.1 MCH 31.0 MCHC 32.3 RDW 14.9 H Plt Count 194 MPV 9.5 Immature Gran % (Auto) 1.0 H Neut % (Auto) 87.7 H Lymph % (Auto) 3.5 L [place] % (Auto) 7.4 Eos % (Auto) 0.1 Baso % (Auto) 0.3 Lymph # (Auto) 0.71 L [place] # (Auto) 1.5 H Eos # (Auto) 0.0 Baso # (Auto) 0.1 Abs Immat Gran (auto) 0.21 H Absolute Neuts (auto) 17.7 H Absolute Nucleated RBC 0.000 Nucleated RBC % 0.0 Sodium 133 L Potassium 3.8 Chloride 107 Carbon Dioxide 14 L Anion Gap 12 BUN 38 H Creatinine 2.72 H Estim Creat Clear Calc 34 Estimated GFR 23 L Glucose 178 H Lactic Acid 1.1 Calcium 8.5 Magnesium 1.7 Total Bilirubin 0.9 AST 28 ALT 24 Alkaline Phosphatase 68 Troponin I 0.055 H* D Total Protein 6.7 Albumin 3.6 Urine Color Yellow Urine Appearance Turbid H Urine pH 6.0 Ur Specific [place] 1.012 Urine Protein 2+ H Urine Glucose (UA) Negative Urine Ketones Negative Ur Blood (Man) 2+ H Urine Nitrate Negative Urine Bilirubin Negative Urine Urobilinogen 0.2 Add Ur Microanalysis Reviewed Leukocyte Esterase Rfl 3+ H Urine RBC 3-5 H Urine WBC >100 H Ur Squamous Epith Cells None seen Urine Bacteria 4+ H Urine Casts 6-10 Quality VTE Prophylaxis VTE prophylaxis: pharmacologic ordered (Heparin 5000 units subQ q.8 hours)
[2024-11-04] VITALS (7 sets, daily range): BP systolic 110–142; BP diastolic 51–70; PULSE 74–85; RESP 16–22; TEMP 36.2–37.1; O2SAT 92–94
[2024-11-04] MEDS: SODIUM CHLORIDE 0.9% IV 1,000 ML 125 ML IV CONT ×3 (04:45→20:50)
[2024-11-04] MEDS: LORATADINE 10 MG TABLET PO (08:42)
[2024-11-04] MEDS: ASPIRIN 81 MG ENTERIC TABLET PO (08:42)
[2024-11-04] MEDS: CALCIUM CITRATE 315 MG/VITAMIN D 6.25 MCG (250 UNITS) TAB 1 TABLET PO (08:42)
[2024-11-04] MEDS: CHOLECALCIFEROL (VITAMIN D3) 25 MCG (1,000 UNITS) TABLET 50 MCG PO (08:43)
[2024-11-04] MEDS: PREGABALIN (*CRX) 75 MG CAPSULE 150 MG PO ×3 (08:43→17:43)
[2024-11-04] MEDS: SERTRALINE HCL 50 MG TABLET 100 MG PO (08:43)
[2024-11-04] MEDS: oxyCODONE HCL (*CRX) 10 MG TAB SR 12HR PO ×2 (08:43→20:53)
[2024-11-04 09:23] LABS: Hematocrit 38.3 % (42.0-52.0); Hemoglobin 12.2 g/dL (14.0-18.0); Mean Corpuscular HGB Conc 31.9 g/dl (32-36); Mean Corpuscular Hemoglobin 30.5 pg (26-34); Mean Corpuscular Volume 95.8 fl (80-100); Platelet Count Result 181 k/mm3 (150-375); Red Blood Count 4.00 M/mm3 (4.6-6.20); White Blood Count 11.2 K/mm3 (4.5-10.0)
[2024-11-04 09:39] LABS: Anion Gap 11 mmol/L (4-12); Blood Urea Nitrogen 31 mg/dL (9-20); Calcium 8.1 mg/dL (8.4-10.2); Carbon Dioxide 19 mmol/L (22-30); Chloride 106 mmol/L (98-107); Estimated CRCL calculation 38 ml/min; Estimated Glomerular Filt Rate 27; Glucose 166 mg/dL (65-110); Magnesium 1.8 mg/dL (1.6-2.3); Potassium 4.0 mmol/L (3.4-5.0); Sodium 136 mmol/L (137-145)
--- NOTE | 2024-11-04 12:20 | PC.NURSE ---
Pt to room 314-1 from [facility] [id number]
--- NOTE | 2024-11-04 13:34 | PM.IMPN ---
Progress Note: A&P Assessment and Plan (1) Sepsis: Qualifiers: Sepsis acute organ dysfunction status: with acute organ dysfunction Sepsis type: sepsis due to unspecified organism Severe sepsis acute organ dysfunction type: encephalopathy Severe sepsis shock status: without septic shock Qualified Code(s): A41.9 - Sepsis, unspecified organism; R65.20 - Severe sepsis without septic shock; G93.41 - Metabolic encephalopathy Code(s): A41.9 - Sepsis, unspecified organism Status: Acute (2) Acute pyelonephritis: Code(s): N10 - Acute pyelonephritis Status: Acute (3) Acute kidney injury superimposed on stage 4 chronic kidney disease: Code(s): N17.9 - Acute kidney failure, unspecified; N18.4 - Chronic kidney disease, stage 4 (severe) Status: Acute (4) Solitary right kidney: Status: Acute (5) Elevated troponin: Code(s): R79.89 - Other specified abnormal findings of blood chemistry Status: Acute Plan Patient has sepsis due to pyelonephritis complicated by unilateral kidney and chronic ileal conduit. Sepsis is resulted in encephalopathy and acute on chronic kidney injury. Patient renal insufficiency is worsened by concomitant dehydration. Blood cultures and urine cultures have been obtained. Patient received 2 L fluid bolus and still appears intervascular volume depleted. He had echocardiogram in 2022 that demonstrated normal EF with abnormal diastolic function. Will complete the patient's 30 mL/kilos fluid bolus by giving an additional 1.5 L normal saline. Will monitor I&O's closely. Will continue Rocephin that was started in the ER. Patient's urine cultures from 2022 were reviewed he grew out Enterococcus at that time what that was sensitive to cephalosporins. Will continue maintenance IV fluid hydration after initial bolus. Will repeat CBC and electrolyte panel in a.m.. Will avoid nephrotoxic medications will hold patient's home diuretic therapy. Patient is encephalopathic likely due to sepsis but he is also on multiples sedating medications. Will hold the patient's home sedating medications for this evening and will re-evaluate mental status if improved will resume patient's home pain medications and stopping the medications in a.m.. Patient does have hemoconcentration noted on labs as well as well elevated creatinine suggesting dehydration with plan as discussed above. Patient does have elevated troponin likely due to demand ischemia troponin profile is relatively flat and acute coronary event is unlikely. Given the patient is uncertain tachycardic rhythm will check magnesium with a.m. labs. Tachyarrhythmias likely due to sinus tachycardia from sepsis. patient was seen by his urologist suspect patient symptoms are stemming from pyelonephritis, patient blood culture is now growing E. Coli, and urine is growing Oxidase neg Gram neb bacillus, discuss with clinical pharmacist, started patient on ceftriaxone 2 g daily, patient clinical symptoms are improving, patient white counts are trending down to 11.2 compared to 22.3 upon arrival, patient stats feeling much better compared to when he arrived, will monitor, Subjective Date/time seen: 11/04/24 13:34 Interval history: feeling cold? 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 However initial report according to ER was at patient brought in for shortness of breath and weakness. He had reported to the ER staff that he has been sleeping yesterday and woke up feeling short of breath. However at the time my evaluation the patient was encephalopathic and initially difficult to obtain history from. The patient did improve in mentation throughout my evaluation and told me that he had been feeling cold and shaking for about a week. He reports that he was having difficulty keeping his urostomy working. It sounds as if he was having decreased urine output. He reports loss of appetite and lower abdominal pain on palpation. He has had some nausea but denied vomiting. He was afebrile on presentation to the ER and it does not sound like he actually checked his temperature with a thermometer at home. He denied any changes in bowel habits. He denies any shortness of breath at the time of my evaluation but does report that he has been coughing. He does admit to still vaping on a daily basis. It is unclear if he has a cough at baseline. The patient is not a reliable historian at the time my evaluation and no family members were available to provide history. As such majority of the history was obtained from ER physician report calmer review of past medical records post internal and external well as external medication reconciliation. The patient told me that he had been for over 70 years. He was aware that he was in a hospital but it took and several attempts to provide any answer for location. He was oriented to month in year. At the time of my evaluation nursing staff had just empty the patient's urostomy of 300 mL of urine. When I went to pull the patient's covers back is cap from his urostomy became dislodged and the patient's urostomy bag emptied into his bed. He had approximately 150 mL in his back at the time of evaluation in the urine was clear in appearance. ER staff reports that the urine specimen obtained in the ER was obtained after cleaning the patient's external urostomy in placing a catheter in the urostomy for specimen. Patient was tachycardic in the ER and had a white count of 22.5 and UA suggestive of UTI. Noncontrast CT demonstrated right ileal conduit right pyelonephritis, trace pericardial and bilateral pleural effusions and hepatomegaly with steatosis. Patient received 2 L fluid bolus and was started on empiric antibiotic therapy with Rocephin. Blood cultures have been obtained and are pending. patient was seen by his urologist suspect patient symptoms are stemming from pyelonephritis, patient blood culture is now growing E. Coli, and urine is growing Oxidase neg Gram neb bacillus, discuss with clinical pharmacist, started patient on ceftriaxone 2 g daily, patient clinical symptoms are improving, patient white counts are trending down to 11.2 compared to 22.3 upon arrival, patient stats feeling much better compared to when he arrived, will monitor, Review of Systems Review of Systems: 12 systems were reviewed with pertinent positives and negatives per HPI. Except as documented in the HPI, all other systems were reviewed and are negative. Although patient was encephalopathic which limited review of systems somewhat. All systems reviewed & are unremarkable except as noted in HPI and below Exam Narrative: Patient is comfortable, NAD HEENT: eyes are clear and none icteric LUNGS:CTA HEART: RR S1S2 ABD: BS+, Soft and nontender Lower extremities: no edema SKIN: nonjaundiced Neuro: grossly intact. Objective Data Vital Signs Vital Signs: Vital Signs - 24 hr 11/03/24 14:00 11/03/24 16:00 11/03/24 16:00 Temperature Pulse Rate 81 99 95 Respiratory Rate 22 H Blood Pressure Pulse Oximetry 95 Oxygen Delivery Room Air Fraction of Inspired Oxygen 11/03/24 16:40 11/03/24 18:00 11/03/24 20:00 Temperature 37.3 C 36.8 C Pulse Rate 95 86 86 Respiratory Rate 22 H 17 Blood Pressure 176/71 H 125/42 L Pulse Oximetry 95 92 Oxygen Delivery Fraction of Inspired Oxygen 11/03/24 20:00 11/03/24 20:00 11/03/24 23:07 Temperature 36.9 C Pulse Rate 95 75 Respiratory Rate 17 Blood Pressure 127/59 L Pulse Oximetry 95 91 Oxygen Delivery Room Air Fraction of Inspired Oxygen 11/03/24 23:07 11/03/24 23:59 11/04/24 00:00 Temperature Pulse Rate 80 Respiratory Rate Blood Pressure Pulse Oximetry 95 95 Oxygen Delivery Room Air Room Air Fraction of Inspired Oxygen 21 11/04/24 03:29 11/04/24 04:00 11/04/24 04:00 Temperature 37.1 C Pulse Rate 76 85 Respiratory Rate 17 Blood Pressure 110/70 Pulse Oximetry 92 Oxygen Delivery Room Air Fraction of Inspired Oxygen 11/04/24 07:53 11/04/24 08:00 11/04/24 08:00 Temperature 36.8 C Pulse Rate 76 77 77 Respiratory Rate 22 H 22 H Blood Pressure 142/51 H Pulse Oximetry 94 94 Oxygen Delivery Room Air Fraction of Inspired Oxygen 21 Intake/Output Intake/Output: Intake & Output 11/01/24 11/02/24 11/03/24 11/04/24 23:59 23:59 23:59 23:59 Intake Total 0 5180 1550 Output Total 2825 1700 Balance 0 2355 -150 Meds/Results Medications: Active Medications Generic Name Dose Route Start Last Admin Trade Name Olivier PRN Reason Stop Dose Admin Acetaminophen 650 mg 11/02/24 20:06 Acetaminophen 325 Mg Tablet PO Q4H PRN Mild Pain (1-3) or Fever Allopurinol 100 mg 11/03/24 09:00 11/04/24 08:42 Allopurinol 100 Mg Tablet PO 100 mg DAILY ONDINA Administration Amlodipine Besylate 5 mg 11/03/24 09:00 11/04/24 08:42 Amlodipine Besylate 5 Mg Tablet PO 5 mg DAILY ONDINA Administration Aspirin 81 mg 11/03/24 09:00 11/04/24 08:42 Aspirin 81 Mg Enteric Tablet PO 81 mg QAM ONDINA Administration Calcitriol 0.25 mcg 11/03/24 09:00 11/04/24 08:42 Calcitriol 0.25 Mcg Capsule PO 0.25 mcg DAILY ONDINA Administration Calcium Citrate 1 tablet 11/03/24 09:00 11/04/24 08:42 Calcium Citrate 315 Mg/Vitamin D 6.25 Mcg (250 Units) Tab PO 1 tablet QAM ONDINA Administration Heparin Sodium (Porcine) 5,000 units 11/03/24 06:00 11/04/24 07:25 Heparin Sodium 5,000 Units/Ml Vial SUB-Q 5,000 units Q8HR ONDINA Administration Sodium Chloride 1,000 mls @ 125 mls/hr 11/02/24 20:10 11/04/24 04:45 Normal Saline Iv IV CONT 125 mls/hr .Q8H ONDINA Administration Ceftriaxone Sodium 2 gm/ 100 mls @ 200 mls/hr 11/03/24 16:00 11/03/24 16:24 Sodium Chloride IVPB 200 mls/hr Q24H ONDINA Administration Loratadine 10 mg 11/03/24 09:00 11/04/24 08:42 Loratadine 10 Mg Tablet PO 10 mg QAM ONDINA Administration Ondansetron HCl 4 mg 11/02/24 20:06 Ondansetron Inj 4 Mg/2 Ml Vial IV PUSH Q4H PRN Nausea Oxycodone HCl 10 mg 11/03/24 09:00 11/04/24 08:43 Oxycodone Hcl (*Crx) 10 Mg Tab Sr 12hr PO 10 mg Q12HR ONDINA Administration Oxycodone HCl 5 mg 11/03/24 05:48 11/03/24 06:54 Oxycodone Hcl (*Crx) 5 Mg Tab Ir PO 5 mg Q6H PRN Administration Pain 7-10 Pregabalin 150 mg 11/03/24 09:00 11/04/24 08:43 Pregabalin (*Crx) 75 Mg Capsule PO 150 mg TID ONDINA Administration Ropinirole HCl 2 mg 11/03/24 21:00 11/03/24 20:39 Ropinirole Hcl 1 Mg Tablet PO 2 mg HS ONDINA Administration Sertraline HCl 100 mg 11/03/24 09:00 11/04/24 08:43 Sertraline Hcl 50 Mg Tablet PO 100 mg DAILY ONDINA Administration Trazodone HCl 100 mg 11/03/24 21:00 11/03/24 20:39 Trazodone Hcl 50 Mg Tablet PO 100 mg HS ONDINA Administration Vitamin D 50 mcg 11/03/24 09:00 11/04/24 08:43 Cholecalciferol (Vitamin D3) 25 Mcg (1,000 Units) Tablet PO 50 mcg DAILY ONDINA Administration Radiology Results: ITS Impressions Chest X-Ray 11/02/24 17:51 IMPRESSION: No acute cardiopulmonary process. Abdomen/Pelvis CT 11/02/24 17:56 IMPRESSION: Trace pericardial effusion. Trace bilateral pleural effusions. Hepatomegaly with steatosis. Status post right ileal conduit. Moderate right perinephric stranding, mild right hydronephrosis and periureteral stranding, may represent anastomotic stricture and/or ascending infection. Labs Labs: Laboratory Results - last 24 hr 11/04/24 09:17 WBC 11.2 H RBC 4.00 L Hgb 12.2 L Hct 38.3 L MCV 95.8 MCH 30.5 MCHC 31.9 L RDW 15.4 H Plt Count 181 MPV 9.6 Sodium 136 L Potassium 4.0 Chloride 106 Carbon Dioxide 19 L Anion Gap 11 BUN 31 H Creatinine 2.41 H Estim Creat Clear Calc 38 Estimated GFR 27 L Glucose 166 H Calcium 8.1 L Magnesium 1.8 Quality VTE Prophylaxis VTE prophylaxis: pharmacologic ordered (Heparin 5000 units subQ q.8 hours)
[2024-11-04] MEDS: cefTRIAXone 2 GM/NS 100 ML 2 GM/100 ML BAG IVPB (17:44)
[2024-11-05 06:00] VITALS: BP 135/73; PULSE 60; RESP 18; TEMP 36.6; O2SAT 96
[2024-11-05] MEDS: SODIUM CHLORIDE 0.9% IV 1,000 ML 125 ML IV CONT ×2 (06:01→17:03)
[2024-11-05] MEDS: oxyCODONE HCL (*CRX) 5 MG TAB IR PO (06:05)
[2024-11-05 06:13] LABS: Hematocrit 35.8 % (42.0-52.0); Hemoglobin 11.8 g/dL (14.0-18.0); Mean Corpuscular HGB Conc 33.0 g/dl (32-36); Mean Corpuscular Hemoglobin 31.0 pg (26-34); Mean Corpuscular Volume 94.0 fl (80-100); Platelet Count Result 193 k/mm3 (150-375); Red Blood Count 3.81 M/mm3 (4.6-6.20); White Blood Count 8.5 K/mm3 (4.5-10.0)
[2024-11-05 06:25] LABS: Anion Gap 7 mmol/L (4-12); Blood Urea Nitrogen 28 mg/dL (9-20); Calcium 7.9 mg/dL (8.4-10.2); Carbon Dioxide 20 mmol/L (22-30); Chloride 110 mmol/L (98-107); Estimated CRCL calculation 45 ml/min; Estimated Glomerular Filt Rate 32; Glucose 107 mg/dL (65-110); Magnesium 1.8 mg/dL (1.6-2.3); Potassium 3.6 mmol/L (3.4-5.0); Sodium 137 mmol/L (137-145)
[2024-11-05] MEDS: CALCIUM CITRATE 315 MG/VITAMIN D 6.25 MCG (250 UNITS) TAB 1 TABLET PO (10:10)
[2024-11-05] MEDS: LORATADINE 10 MG TABLET PO (10:10)
[2024-11-05] MEDS: PREGABALIN (*CRX) 75 MG CAPSULE 150 MG PO ×3 (10:10→17:03)
[2024-11-05] MEDS: SERTRALINE HCL 50 MG TABLET 100 MG PO (10:11)
[2024-11-05] MEDS: ASPIRIN 81 MG ENTERIC TABLET PO (10:11)
[2024-11-05] MEDS: CHOLECALCIFEROL (VITAMIN D3) 25 MCG (1,000 UNITS) TABLET 50 MCG PO (10:11)
[2024-11-05] MEDS: oxyCODONE HCL (*CRX) 10 MG TAB SR 12HR PO ×2 (10:11→20:38)
--- NOTE | 2024-11-05 13:21 | PM.IMPN ---
Progress Note: A&P Assessment and Plan (1) Sepsis: Qualifiers: Sepsis type: sepsis due to unspecified organism Sepsis acute organ dysfunction status: with acute organ dysfunction Severe sepsis acute organ dysfunction type: encephalopathy Severe sepsis shock status: without septic shock Qualified Code(s): A41.9 - Sepsis, unspecified organism; R65.20 - Severe sepsis without septic shock; G93.41 - Metabolic encephalopathy Code(s): A41.9 - Sepsis, unspecified organism Status: Acute (2) Acute pyelonephritis: Code(s): N10 - Acute pyelonephritis Status: Acute (3) Acute kidney injury superimposed on stage 4 chronic kidney disease: Code(s): N17.9 - Acute kidney failure, unspecified; N18.4 - Chronic kidney disease, stage 4 (severe) Status: Acute (4) Solitary right kidney: Status: Acute (5) Elevated troponin: Code(s): R79.89 - Other specified abnormal findings of blood chemistry Status: Acute Plan Patient has sepsis due to pyelonephritis complicated by unilateral kidney and chronic ileal conduit. Sepsis is resulted in encephalopathy and acute on chronic kidney injury. Patient renal insufficiency is worsened by concomitant dehydration. Blood cultures and urine cultures have been obtained. Patient received 2 L fluid bolus and still appears intervascular volume depleted. He had echocardiogram in 2022 that demonstrated normal EF with abnormal diastolic function. Will complete the patient's 30 mL/kilos fluid bolus by giving an additional 1.5 L normal saline. Will monitor I&O's closely. Will continue Rocephin that was started in the ER. Patient's urine cultures from 2022 were reviewed he grew out Enterococcus at that time what that was sensitive to cephalosporins. Will continue maintenance IV fluid hydration after initial bolus. Will repeat CBC and electrolyte panel in a.m.. Will avoid nephrotoxic medications will hold patient's home diuretic therapy. Patient is encephalopathic likely due to sepsis but he is also on multiples sedating medications. Will hold the patient's home sedating medications for this evening and will re-evaluate mental status if improved will resume patient's home pain medications and stopping the medications in a.m.. Patient does have hemoconcentration noted on labs as well as well elevated creatinine suggesting dehydration with plan as discussed above. Patient does have elevated troponin likely due to demand ischemia troponin profile is relatively flat and acute coronary event is unlikely. Given the patient is uncertain tachycardic rhythm will check magnesium with a.m. labs. Tachyarrhythmias likely due to sinus tachycardia from sepsis. patient was seen by his urologist suspect patient symptoms are stemming from pyelonephritis, patient blood culture is now growing E. Coli, and urine is growing Oxidase neg Gram neb bacillus, discuss with clinical pharmacist, started patient on ceftriaxone 2 g daily, sensitivity is back today and clinical pharmacist if recommending Levoquin, his qt interval is close to 500, will monitor over night on tele, and plan tomorrow, patient clinical symptoms are improving, patient white counts are trending down to 8.5 compared to 22.3 upon arrival, patient stats feeling much better compared to when he arrived, will monitor, Subjective Date/time seen: 11/05/24 13:21 Interval history: feeling cold? 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 However initial report according to ER was at patient brought in for shortness of breath and weakness. He had reported to the ER staff that he has been sleeping yesterday and woke up feeling short of breath. However at the time my evaluation the patient was encephalopathic and initially difficult to obtain history from. The patient did improve in mentation throughout my evaluation and told me that he had been feeling cold and shaking for about a week. He reports that he was having difficulty keeping his urostomy working. It sounds as if he was having decreased urine output. He reports loss of appetite and lower abdominal pain on palpation. He has had some nausea but denied vomiting. He was afebrile on presentation to the ER and it does not sound like he actually checked his temperature with a thermometer at home. He denied any changes in bowel habits. He denies any shortness of breath at the time of my evaluation but does report that he has been coughing. He does admit to still vaping on a daily basis. It is unclear if he has a cough at baseline. The patient is not a reliable historian at the time my evaluation and no family members were available to provide history. As such majority of the history was obtained from ER physician report calmer review of past medical records post internal and external well as external medication reconciliation. The patient told me that he had been for over 70 years. He was aware that he was in a hospital but it took and several attempts to provide any answer for location. He was oriented to month in year. At the time of my evaluation nursing staff had just empty the patient's urostomy of 300 mL of urine. When I went to pull the patient's covers back is cap from his urostomy became dislodged and the patient's urostomy bag emptied into his bed. He had approximately 150 mL in his back at the time of evaluation in the urine was clear in appearance. ER staff reports that the urine specimen obtained in the ER was obtained after cleaning the patient's external urostomy in placing a catheter in the urostomy for specimen. Patient was tachycardic in the ER and had a white count of 22.5 and UA suggestive of UTI. Noncontrast CT demonstrated right ileal conduit right pyelonephritis, trace pericardial and bilateral pleural effusions and hepatomegaly with steatosis. Patient received 2 L fluid bolus and was started on empiric antibiotic therapy with Rocephin. Blood cultures have been obtained and are pending. patient was seen by his urologist suspect patient symptoms are stemming from pyelonephritis, patient blood culture is now growing E. Coli, and urine is growing Oxidase neg Gram neb bacillus, discuss with clinical pharmacist, started patient on ceftriaxone 2 g daily, sensitivity is back today and clinical pharmacist if recommending Levoquin, his qt interval is close to 500, will monitor over night on tele, and plan tomorrow, patient clinical symptoms are improving, patient white counts are trending down to 8.5 compared to 22.3 upon arrival, patient stats feeling much better compared to when he arrived, will monitor, Review of Systems Review of Systems: 12 systems were reviewed with pertinent positives and negatives per HPI. Except as documented in the HPI, all other systems were reviewed and are negative. Although patient was encephalopathic which limited review of systems somewhat. All systems reviewed & are unremarkable except as noted in HPI and below Exam Narrative: Patient is comfortable, NAD HEENT: eyes are clear and none icteric LUNGS:CTA HEART: RR S1S2 ABD: BS+, Soft and nontender Lower extremities: no edema SKIN: nonjaundiced Neuro: grossly intact. Objective Data Vital Signs Vital Signs: Vital Signs - 24 hr 11/04/24 15:33 11/04/24 21:24 11/05/24 06:00 Temperature 36.2 C L 36.6 C 36.6 C Pulse Rate 74 80 60 Respiratory Rate 18 16 18 Blood Pressure 126/64 112/59 L 135/73 Pulse Oximetry 94 93 96 Oxygen Delivery 11/05/24 08:00 Temperature Pulse Rate Respiratory Rate Blood Pressure Pulse Oximetry Oxygen Delivery Room Air Intake/Output Intake/Output: Intake & Output 11/02/24 11/03/24 11/04/24 11/05/24 23:59 23:59 23:59 23:59 Intake Total 2050 5180 3939.2 1400 Output Total 2825 2800 750 Balance 2050 2355 1139.2 650 Meds/Results Medications: Active Medications Generic Name Dose Route Start Last Admin Trade Name Freq PRN Reason Stop Dose Admin Acetaminophen 650 mg 11/02/24 20:06 Acetaminophen 325 Mg Tablet PO Q4H PRN Mild Pain (1-3) or Fever Allopurinol 100 mg 11/03/24 09:00 11/05/24 10:11 Allopurinol 100 Mg Tablet PO 100 mg DAILY ONDINA Administration Amlodipine Besylate 5 mg 11/03/24 09:00 11/05/24 10:10 Amlodipine Besylate 5 Mg Tablet PO 5 mg DAILY ONDINA Administration Aspirin 81 mg 11/03/24 09:00 11/05/24 10:11 Aspirin 81 Mg Enteric Tablet PO 81 mg QAM ONDINA Administration Calcitriol 0.25 mcg 11/03/24 09:00 11/05/24 10:10 Calcitriol 0.25 Mcg Capsule PO 0.25 mcg DAILY ONDINA Administration Calcium Citrate 1 tablet 11/03/24 09:00 11/05/24 10:10 Calcium Citrate 315 Mg/Vitamin D 6.25 Mcg (250 Units) Tab PO 1 tablet QAM ONDINA Administration Heparin Sodium (Porcine) 5,000 units 11/03/24 06:00 11/05/24 06:02 Heparin Sodium 5,000 Units/Ml Vial SUB-Q 5,000 units Q8HR ONDINA Administration Sodium Chloride 1,000 mls @ 125 mls/hr 11/02/24 20:10 11/05/24 06:01 Normal Saline Iv IV CONT 125 mls/hr .Q8H ONDINA Administration Levofloxacin 750 mg 11/05/24 17:00 Levofloxacin 750 Mg Tablet PO 11/09/24 17:01 Q48H ONDINA Loratadine 10 mg 11/03/24 09:00 11/05/24 10:10 Loratadine 10 Mg Tablet PO 10 mg QAM ONDINA Administration Ondansetron HCl 4 mg 11/02/24 20:06 Ondansetron Inj 4 Mg/2 Ml Vial IV PUSH Q4H PRN Nausea Oxycodone HCl 10 mg 11/03/24 09:00 11/05/24 10:11 Oxycodone Hcl (*Crx) 10 Mg Tab Sr 12hr PO 10 mg Q12HR ONDINA Administration Oxycodone HCl 5 mg 11/03/24 05:48 11/05/24 06:05 Oxycodone Hcl (*Crx) 5 Mg Tab Ir PO 5 mg Q6H PRN Administration Pain 7-10 Pregabalin 150 mg 11/03/24 09:00 11/05/24 10:10 Pregabalin (*Crx) 75 Mg Capsule PO 150 mg TID ONDINA Administration Ropinirole HCl 2 mg 11/03/24 21:00 11/04/24 20:53 Ropinirole Hcl 1 Mg Tablet PO 2 mg HS ONDINA Administration Sertraline HCl 100 mg 11/03/24 09:00 11/05/24 10:11 Sertraline Hcl 50 Mg Tablet PO 100 mg DAILY ONDINA Administration Trazodone HCl 100 mg 11/03/24 21:00 11/04/24 20:54 Trazodone Hcl 50 Mg Tablet PO 100 mg HS ONDINA Administration Vitamin D 50 mcg 11/03/24 09:00 11/05/24 10:11 Cholecalciferol (Vitamin D3) 25 Mcg (1,000 Units) Tablet PO 50 mcg DAILY ONDINA Administration Radiology Results: ITS Impressions Chest X-Ray 11/02/24 17:51 IMPRESSION: No acute cardiopulmonary process. Abdomen/Pelvis CT 11/02/24 17:56 IMPRESSION: Trace pericardial effusion. Trace bilateral pleural effusions. Hepatomegaly with steatosis. Status post right ileal conduit. Moderate right perinephric stranding, mild right hydronephrosis and periureteral stranding, may represent anastomotic stricture and/or ascending infection. Labs Labs: Laboratory Results - last 24 hr 11/05/24 05:28 WBC 8.5 RBC 3.81 L Hgb 11.8 L Hct 35.8 L MCV 94.0 MCH 31.0 MCHC 33.0 RDW 15.0 H Plt Count 193 MPV 9.9 Sodium 137 Potassium 3.6 Chloride 110 H Carbon Dioxide 20 L Anion Gap 7 BUN 28 H Creatinine 2.04 H Estim Creat Clear Calc 45 Estimated GFR 32 L Glucose 107 Calcium 7.9 L Magnesium 1.8 Quality VTE Prophylaxis VTE prophylaxis: pharmacologic ordered (Heparin 5000 units subQ q.8 hours)
[2024-11-05 14:00] VITALS: BP 126/59; PULSE 66; RESP 18; TEMP 36.4; O2SAT 97
[2024-11-05 16:00] VITALS: PULSE 63
--- NOTE | 2024-11-05 19:40 | PC.NURSE ---
On 11/05/24, the TRANSFERRER, Bridget Hough, provided care and completed [employer] documentation on this patient. I have reviewed the TRANSFERRER's documentation and agree with the findings.
[2024-11-05 20:00] VITALS: PULSE 58; PULSE 81; RESP 16; O2SAT 98
[2024-11-05 20:35] VITALS: BP 154/81; PULSE 81; RESP 16; O2SAT 98
[2024-11-06] VITALS (9 sets, daily range): BP systolic 106–137; BP diastolic 51–89; PULSE 52–68; RESP 18; TEMP 36.1–36.2; O2SAT 94–97
[2024-11-06] MEDS: oxyCODONE HCL (*CRX) 5 MG TAB IR PO ×2 (06:00→13:16)
[2024-11-06 06:52] LABS: Hematocrit 39.0 % (42.0-52.0); Hemoglobin 12.6 g/dL (14.0-18.0); Mean Corpuscular HGB Conc 32.3 g/dl (32-36); Mean Corpuscular Hemoglobin 30.7 pg (26-34); Mean Corpuscular Volume 95.1 fl (80-100); Platelet Count Result 208 k/mm3 (150-375); Red Blood Count 4.10 M/mm3 (4.6-6.20); White Blood Count 7.4 K/mm3 (4.5-10.0)
[2024-11-06 07:22] LABS: Anion Gap 11 mmol/L (4-12); Blood Urea Nitrogen 25 mg/dL (9-20); Calcium 8.4 mg/dL (8.4-10.2); Carbon Dioxide 22 mmol/L (22-30); Chloride 107 mmol/L (98-107); Estimated CRCL calculation 45 ml/min; Estimated Glomerular Filt Rate 32; Glucose 114 mg/dL (65-110); Magnesium 1.7 mg/dL (1.6-2.3); Potassium 3.7 mmol/L (3.4-5.0); Sodium 140 mmol/L (137-145)
[2024-11-06] MEDS: PREGABALIN (*CRX) 75 MG CAPSULE 150 MG PO ×3 (08:52→16:16)
[2024-11-06] MEDS: CHOLECALCIFEROL (VITAMIN D3) 25 MCG (1,000 UNITS) TABLET 50 MCG PO (08:52)
[2024-11-06] MEDS: SERTRALINE HCL 50 MG TABLET 100 MG PO (08:52)
[2024-11-06] MEDS: oxyCODONE HCL (*CRX) 10 MG TAB SR 12HR PO ×2 (08:53→21:04)
[2024-11-06] MEDS: LORATADINE 10 MG TABLET PO (08:53)
[2024-11-06] MEDS: ASPIRIN 81 MG ENTERIC TABLET PO (08:53)
[2024-11-06] MEDS: CALCIUM CITRATE 315 MG/VITAMIN D 6.25 MCG (250 UNITS) TAB 1 TABLET PO (08:53)
[2024-11-06] MEDS: ACETAMINOPHEN 325 MG TABLET 650 MG PO (13:15)
--- NOTE | 2024-11-06 14:19 | P.PNIM_ITS ---
Progress Note: A&P Assessment and Plan (1) Sepsis: Qualifiers: Sepsis type: sepsis due to unspecified organism Sepsis acute organ dysfunction status: with acute organ dysfunction Severe sepsis acute organ dysfunction type: encephalopathy Severe sepsis shock status: without septic shock Qualified Code(s): A41.9 - Sepsis, unspecified organism; R65.20 - Severe sepsis without septic shock; G93.41 - Metabolic encephalopathy Code(s): A41.9 - Sepsis, unspecified organism Status: Acute Assessment and Plan: * Interval improvement overall, suspect cause was Pyelonephritis * On Levaquin 750 mg Q48 hrs based on renal function * No longer meeting sepsis criteria, but was Bacteremic 3/4 bottles of E.coli, which was also in urine. * Pt was hydrated with IVF. * Repeat Blood cultures ordered today, if preliminarily negative and continues to improve tomorrow, consider discharge, but being very cautious in the setting of having a solitary kidney w/Pyelo, Bacteremia, and initial worsening of renal function. * Continuing to monitor and trend labs and VS. * IVF discontinued. (2) Bacteremia: Code(s): R78.81 - Bacteremia Status: Resolved Assessment and Plan: * See #1 (3) Acute pyelonephritis: Code(s): N10 - Acute pyelonephritis Status: Acute Assessment and Plan: * See #1 (4) CAROLYNE (acute kidney injury): Code(s): N17.9 - Acute kidney failure, unspecified Status: Resolved Assessment and Plan: * At baseline (5) Solitary right kidney: Status: Chronic Assessment and Plan: * Of note (6) Elevated troponin: Code(s): R79.89 - Other specified abnormal findings of blood chemistry Status: Acute Assessment and Plan: * Flat, and is historically elevated. * No CP, dyspnea. * No concern for ACS. Plan Potential discharge tomorrow if preliminary BC are negative. Time Spent With Patient Time with patient: 15 - 25 minutes Subjective Date/time seen: 11/06/24 14:19 Interval history: This pt was examined at the bedside today in interval assessment after being admitted to the hospital on 11/02/24 with Sepsis and Pyelonephritis in the setting of having a solitary kidney. Pt's urine culture and 3/4 bottles of blood cultures x2 all grew out E.coli with near pansensitivity. He reports feeling better and is on Levaquin 750 mg Q48 hrs for 3 doses ordered. Due to pt's dx of Pyelonephritis w/a solitary kidney and admission to the hospital for Sepsis related to the Pyelonephritis, repeat BCx2 have been drawn and it is noted that it is pending organism identification. Discussion was had with pt as he continues to have back pain and the desire to repeat the blood cultures as he did have positive ones previously. Review of Systems Review of Systems: All systems reviewed & are unremarkable except as noted in HPI and below Exam Const: General: comfortable and no acute distress Other: Obese male pt lying supine at this time in no acute distress. HENMT: Face/Nose/Sinus: Normal nares present Eyes: General: appearance normal, both eyes and all related structures Sclera: sclerae normal Pupils: Equal, round and reactive pupils present EOM: EOMs intact bilaterally Neck: Neck: supple and no JVD Lymphatic: lymphadenopathy Resp: Effort & Inspection: normal respiratory effort Auscultation: clear to auscultation bilaterally Cardio: Rate: regular rate Rhythm: regular rhythm Heart sounds: no gallops, no murmurs and no rubs GI: Inspection: non-distended GI Palp: Yes Soft to palpation and No Tenderness to palpation present (GI) Auscultation: normal bowel sounds : Other: Urostomy present. Clear yellow urine in bag. Skin: General skin exam: normal color, no rashes or lesions noted and no erythema Lesions: no lesions noted Rashes: no rashes noted Wounds: no wounds Neuro: General: gait normal Speech: normal speech Motor exam (neuro): 5/5 motor strength present throughout and Normal motor muscle tone present throughout Sensory Exam: normal sensation Extrem: General: normal to inspection, no edema and no pedal edema Other: Full AROM of all extremities without deficit. Psych: Mental Status: mental status grossly normal Affect: normal affect Objective Data Vital Signs Vital Signs: Vital Signs - 24 hr 11/05/24 16:00 11/05/24 20:00 11/05/24 20:00 Temperature Pulse Rate 63 81 58 L Respiratory Rate 16 Blood Pressure Pulse Oximetry 98 Oxygen Delivery Room Air Fraction of Inspired Oxygen 21 11/05/24 20:35 11/06/24 00:00 11/06/24 04:00 Temperature Pulse Rate 81 68 53 L Respiratory Rate 16 Blood Pressure 154/81 H Pulse Oximetry 98 Oxygen Delivery Fraction of Inspired Oxygen 11/06/24 05:28 11/06/24 08:00 11/06/24 08:00 Temperature 97.1 F L Pulse Rate 68 65 Respiratory Rate 18 Blood Pressure 136/76 Pulse Oximetry 97 Oxygen Delivery Room Air Fraction of Inspired Oxygen 11/06/24 12:00 Temperature Pulse Rate 67 Respiratory Rate Blood Pressure Pulse Oximetry Oxygen Delivery Fraction of Inspired Oxygen Intake/Output Intake/Output: Intake & Output 11/03/24 11/04/24 11/05/24 11/06/24 23:59 23:59 23:59 23:59 Intake Total 5180 3939.2 2742 904 Output Total 2825 2800 1375 Balance 2355 1139.2 1367 904 Meds/Results Medications: Active Medications Generic Name Dose Route Start Last Admin Trade Name Freq PRN Reason Stop Dose Admin Acetaminophen 650 mg 11/02/24 20:06 11/06/24 13:15 Acetaminophen 325 Mg Tablet PO 650 mg Q4H PRN Administration Mild Pain (1-3) or Fever Allopurinol 100 mg 11/03/24 09:00 11/06/24 08:52 Allopurinol 100 Mg Tablet PO 100 mg DAILY ONDINA Administration Amlodipine Besylate 5 mg 11/03/24 09:00 11/06/24 08:53 Amlodipine Besylate 5 Mg Tablet PO 5 mg DAILY ONDINA Administration Aspirin 81 mg 11/03/24 09:00 11/06/24 08:53 Aspirin 81 Mg Enteric Tablet PO 81 mg QAM ONDINA Administration Calcitriol 0.25 mcg 11/03/24 09:00 11/06/24 08:53 Calcitriol 0.25 Mcg Capsule PO 0.25 mcg DAILY ONDINA Administration Calcium Citrate 1 tablet 11/03/24 09:00 11/06/24 08:53 Calcium Citrate 315 Mg/Vitamin D 6.25 Mcg (250 Units) Tab PO 1 tablet QAM ONDINA Administration Heparin Sodium (Porcine) 5,000 units 11/03/24 06:00 11/06/24 13:12 Heparin Sodium 5,000 Units/Ml Vial SUB-Q 5,000 units Q8HR ONDINA Administration Levofloxacin 750 mg 11/05/24 17:00 11/05/24 17:03 Levofloxacin 750 Mg Tablet PO 11/09/24 17:01 750 mg Q48H ONDINA Administration Loratadine 10 mg 11/03/24 09:00 11/06/24 08:53 Loratadine 10 Mg Tablet PO 10 mg QAM ONDINA Administration Ondansetron HCl 4 mg 11/02/24 20:06 Ondansetron Inj 4 Mg/2 Ml Vial IV PUSH Q4H PRN Nausea Oxycodone HCl 10 mg 11/03/24 09:00 11/06/24 08:53 Oxycodone Hcl (*Crx) 10 Mg Tab Sr 12hr PO 10 mg Q12HR ONDINA Administration Oxycodone HCl 5 mg 11/03/24 05:48 11/06/24 13:16 Oxycodone Hcl (*Crx) 5 Mg Tab Ir PO 5 mg Q6H PRN Administration Pain 7-10 Pregabalin 150 mg 11/03/24 09:00 11/06/24 13:12 Pregabalin (*Crx) 75 Mg Capsule PO 150 mg TID ONDINA Administration Ropinirole HCl 2 mg 11/03/24 21:00 11/05/24 20:38 Ropinirole Hcl 1 Mg Tablet PO 2 mg HS ONDINA Administration Sertraline HCl 100 mg 11/03/24 09:00 11/06/24 08:52 Sertraline Hcl 50 Mg Tablet PO 100 mg DAILY ONDINA Administration Trazodone HCl 100 mg 11/03/24 21:00 11/05/24 20:38 Trazodone Hcl 50 Mg Tablet PO 100 mg HS ONDINA Administration Vitamin D 50 mcg 11/03/24 09:00 11/06/24 08:52 Cholecalciferol (Vitamin D3) 25 Mcg (1,000 Units) Tablet PO 50 mcg DAILY ONDINA Administration Radiology Results: ITS Impressions Chest X-Ray 11/02/24 17:51 IMPRESSION: No acute cardiopulmonary process. Abdomen/Pelvis CT 11/02/24 17:56 IMPRESSION: Trace pericardial effusion. Trace bilateral pleural effusions. Hepatomegaly with steatosis. Status post right ileal conduit. Moderate right perinephric stranding, mild right hydronephrosis and periureteral stranding, may represent anastomotic stricture and/or ascending infection. Labs Labs: Laboratory Results - last 24 hr 11/06/24 06:35 WBC 7.4 RBC 4.10 L Hgb 12.6 L Hct 39.0 L MCV 95.1 MCH 30.7 MCHC 32.3 RDW 14.7 H Plt Count 208 MPV 9.8 Sodium 140 Potassium 3.7 Chloride 107 Carbon Dioxide 22 Anion Gap 11 BUN 25 H Creatinine 2.05 H Estim Creat Clear Calc 45 Estimated GFR 32 L Glucose 114 H Calcium 8.4 Magnesium 1.7 Quality VTE Prophylaxis VTE prophylaxis: pharmacologic ordered
[2024-11-06] MEDS: TIZANIDINE HCL 4 MG TABLET PO (16:17)
[2024-11-07] VITALS: PULSE 54
[2024-11-07] MEDS: oxyCODONE HCL (*CRX) 5 MG TAB IR PO ×2 (02:04→11:19)
[2024-11-07 04:00] VITALS: PULSE 56
[2024-11-07 05:43] VITALS: BP 127/58; PULSE 60; RESP 16; TEMP 36.4; O2SAT 95
[2024-11-07 06:21] LABS: Hematocrit 39.5 % (42.0-52.0); Hemoglobin 12.8 g/dL (14.0-18.0); Mean Corpuscular HGB Conc 32.4 g/dl (32-36); Mean Corpuscular Hemoglobin 30.9 pg (26-34); Mean Corpuscular Volume 95.4 fl (80-100); Platelet Count Result 237 k/mm3 (150-375); Red Blood Count 4.14 M/mm3 (4.6-6.20); White Blood Count 10.2 K/mm3 (4.5-10.0)
[2024-11-07 06:43] LABS: Anion Gap 10 mmol/L (4-12); Blood Urea Nitrogen 27 mg/dL (9-20); Calcium 8.8 mg/dL (8.4-10.2); Carbon Dioxide 23 mmol/L (22-30); Chloride 106 mmol/L (98-107); Estimated CRCL calculation 45 ml/min; Estimated Glomerular Filt Rate 33; Glucose 93 mg/dL (65-110); Magnesium 1.7 mg/dL (1.6-2.3); Potassium 3.9 mmol/L (3.4-5.0); Sodium 139 mmol/L (137-145)
[2024-11-07 07:32] VITALS: O2SAT 95
[2024-11-07 08:00] VITALS: PULSE 64
[2024-11-07] MEDS: CALCIUM CITRATE 315 MG/VITAMIN D 6.25 MCG (250 UNITS) TAB 1 TABLET PO (08:18)
[2024-11-07] MEDS: SERTRALINE HCL 50 MG TABLET 100 MG PO (08:18)
[2024-11-07] MEDS: CHOLECALCIFEROL (VITAMIN D3) 25 MCG (1,000 UNITS) TABLET 50 MCG PO (08:18)
[2024-11-07] MEDS: PREGABALIN (*CRX) 75 MG CAPSULE 150 MG PO ×2 (08:18→12:15)
[2024-11-07] MEDS: oxyCODONE HCL (*CRX) 10 MG TAB SR 12HR PO (08:18)
[2024-11-07] MEDS: LORATADINE 10 MG TABLET PO (08:19)
[2024-11-07] MEDS: ASPIRIN 81 MG ENTERIC TABLET PO (08:19)
[2024-11-07] MEDS: TIZANIDINE HCL 4 MG TABLET PO (11:19)
[2024-11-07] MEDS: ACETAMINOPHEN 325 MG TABLET 650 MG PO (11:20)
[2024-11-07 12:00] VITALS: PULSE 62
--- NOTE | 2024-11-07 12:46 | P.DS_ITS ---
DS: Admitting Diagnosis Discharge Date 11/07/2024 Admitting Diagnosis Sepsis DS: Discharge Diagnosis Discharge Diagnosis (1) Sepsis: Qualifiers: Sepsis acute organ dysfunction status: with acute organ dysfunction Sepsis type: sepsis due to unspecified organism Severe sepsis acute organ dysfunction type: encephalopathy Severe sepsis shock status: without septic shock Qualified Code(s): A41.9 - Sepsis, unspecified organism; R65.20 - Severe sepsis without septic shock; G93.41 - Metabolic encephalopathy Code(s): A41.9 - Sepsis, unspecified organism Status: Acute (2) Bacteremia: Code(s): R78.81 - Bacteremia Status: Resolved (3) Acute pyelonephritis: Code(s): N10 - Acute pyelonephritis Status: Acute (4) CAROLYNE (acute kidney injury): Code(s): N17.9 - Acute kidney failure, unspecified Status: Resolved (5) Solitary right kidney: Status: Chronic (6) Elevated troponin: Code(s): R79.89 - Other specified abnormal findings of blood chemistry Status: Acute DS: Summary Hospital Course Hospital Course: 74-year-old male with a past medical history of morbid obesity, chronic kidney disease stage 4, 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 However initial report according to ER was at patient brought in for shortness of breath and weakness. He had reported to the ER staff that he has been sleeping yesterday and woke up feeling short of breath. He reports that he was having difficulty keeping his urostomy working. It sounds as if he was having decreased urine output. He reports loss of appetite and lower abdominal pain on palpation. He has had some nausea but denied vomiting. He was afebrile on presentation to the ER. Patient was tachycardic in the ER and had a white count of 22.5 and UA suggestive of UTI. Noncontrast CT demonstrated right ileal conduit right pyelonephritis, trace pericardial and bilateral pleural effusions and hepatomegaly with steatosis. Patient received 2 L fluid bolus and was started on empiric antibiotic therapy with Rocephin. Blood cultures have been obtained and are pending. Urology was consulted. Blood culture grew E coli. Antibiotic was switched to l evofloxacin. QTC was monitored. He will continue levofloxacin for total 14 days course of antibiotic for his pyelonephritis. Time Spent with Patient Time attestation: Total time spent providing and/or coordinating discharge services: 40 minutes Exam Narrative: Patient is comfortable, NAD HEENT: eyes are clear and none icteric LUNGS:CTA HEART: RR S1S2 ABD: BS+, Soft and nontender Lower extremities: no edema SKIN: nonjaundiced Neuro: grossly intact. DS: Data Data Completed and Pending Labs on day of discharge: Labs from last 24 hours 11/07/24 05:27 WBC 10.2 H RBC 4.14 L Hgb 12.8 L Hct 39.5 L MCV 95.4 MCH 30.9 MCHC 32.4 RDW 14.7 H Plt Count 237 MPV 9.9 Sodium 139 Potassium 3.9 Chloride 106 Carbon Dioxide 23 Anion Gap 10 BUN 27 H Creatinine 1.99 H Estim Creat Clear Calc 45 Estimated GFR 33 L Glucose 93 Calcium 8.8 Magnesium 1.7 Preliminary micro results at discharge 11/02/24 16:51 Blood Culture - Preliminary Blood Escherichia Coli Imaging Radiologist's impression: ITS Impressions Chest X-Ray 11/02/24 17:51 IMPRESSION: No acute cardiopulmonary process. Abdomen/Pelvis CT 11/02/24 17:56 IMPRESSION: Trace pericardial effusion. Trace bilateral pleural effusions. Hepatomegaly with steatosis. Status post right ileal conduit. Moderate right perinephric stranding, mild right hydronephrosis and periureteral stranding, may represent anastomotic stricture and/or ascending infection. Discharge Plan Discharge Attending physician on discharge: Venancio Gillespie Consulting providers: Colt Oshea Discharging Clinician: Venancio Gillespie Anticipated Discharge Date/Time: 11/07/24 12:48 Patient Disposition: Home Activity: as tolerated Diet: heart healthy Patient Instructions: Antibiotic Form, How to Stop Smoking (DC), Kidney Infection (DC), Electronic Cigarettes and Your Health (GEN) Patient Language: Turkmen Stand Alone Forms: General Discharge Information Follow-up/Referrals: Colt Oshea MD [Physician] - 3 Weeks Rosanna,Kelly Bull MD [Primary Care Provider] - 1 Week Discharge Medications: New levofloxacin 750 mg tablet 750 mg PO Q48H Qty: 4 0RF Rx Instructions: start on 11/09/2024 Continued torsemide 20 mg tablet 20 mg PO DAILY atorvastatin 10 mg tablet 10 mg PO DAILY sertraline 100 mg tablet 100 mg PO DAILY fexofenadine [Valarie] 180 mg Tablet 180 mg PO DAILY amlodipine 5 mg tablet 5 mg PO DAILY allopurinol 100 mg tablet 100 mg PO DAILY trazodone 100 mg tablet 100 mg PO HS ropinirole 2 mg tablet 2 mg PO HS calcitriol 0.25 mcg capsule 0.25 mcg PO DAILY oxycodone 5 mg tablet 5 mg PO BID pregabalin 150 mg capsule 150 mg PO TID cholecalciferol (vitamin D3) [Vitamin D3] 50 mcg (2,000 unit) Capsule 50 mcg PO DAILY calcium citrate-vitamin D3 [Citracal-D3 Petites] 200 mg-6.25 mcg (250 unit) Tablet 1 tablet PO DAILY Xtampza ER 13.5 mg cap,sprinkl,ER12hr(DONT CRUSH) 13.5 mg PO BID aspirin 81 mg Capsule 81 mg PO DAILY Cranberry Plus Vitamin C 450 mg PO DAILY Other Ambulatory Orders: Complete Blood Count with Diff (Routine) Timeframe: 1 Week Location: Determined by Patient Ordered By: Venancio Gillespie Comprehensive Metabolic Panel (Routine) Timeframe: 1 Week Location: Determined by Patient Ordered By: Venancio Gillespie Date of admission: 11/02/24 20:06 Primary Care Provider: BárbaraKelly Admitting Provider: Diana Espinosa Attending physician on admission: Diana Espinosa Condition: Stable
--- NOTE | 2024-11-07 13:38 | ECG_ITS ---
Test Date: 2024-11-07 13:59:12 Measurements Intervals [place] Rate: 62 P: 112 KS: 302 QRS: -12 QRSD: 109 T: 42 QT: 439 QTc: 449 Interpretive Statements BASELINE ARTIFACT ECTOPIC ATRIAL RHYTHM POSSIBLE INFERIOR MYOCARDIAL INFARCTION , PROBABLY OLD T-WAVE ABNORMALITY, CONSIDER ISCHEMIA Electronically Signed On 11-08-2024 08:05:32 CDT by Jose Church D.O
--- NOTE | 2024-11-07 14:23 | ECG_ITS ---
Test Date: 2024-11-07 14:45:12 Measurements Intervals [place] Rate: 60 P: 12 AR: 180 QRS: -38 QRSD: 105 T: 63 QT: 430 QTc: 431 Interpretive Statements SINUS RHYTHM LEFTWARD AXIS T-WAVE ABNORMALITY, CONSIDER ISCHEMIA Electronically Signed On 11-08-2024 08:08:21 CDT by Jose Church D.O
== END 2024-11-07 14:55 | disposition home or self-care (01) | DRG 871 ==
LOC: ANHED 20:13 → ANHIMU 21:04 → ANH3MEDSUR 11-04 12:15
PROVIDERS: Emergency Medicine; Family Medicine; Admitting Provider Internal Medicine; Emergency Provider Emergency Medicine; PCP Internal Medicine; Visit Provider Internal Medicine
DX: A41.9 Sepsis, unspecified organism (principal); G93.41 Metabolic encephalopathy; Z68.41 Body mass index [BMI] 40.0-44.9, adult; N18.4 Chronic kidney disease, stage 4 (severe); I24.89 Other forms of acute ischemic heart disease; N17.9 Acute kidney failure, unspecified; N13.6 Pyonephrosis; I44.7 Left bundle-branch block, unspecified; E66.01 Morbid (severe) obesity due to excess calories; I12.9 Hypertensive chronic kidney disease with stage 1 through stage 4 chronic kidney disease, or unspecified chronic kidney disease; G62.9 Polyneuropathy, unspecified; G89.29 Other chronic pain; F41.8 Other specified anxiety disorders; I25.10 Atherosclerotic heart disease of native coronary artery without angina pectoris; E78.5 Hyperlipidemia, unspecified; J43.9 Emphysema, unspecified; R65.20 Severe sepsis without septic shock; E86.0 Dehydration; B96.20 Unspecified Escherichia coli [E. coli] as the cause of diseases classified elsewhere; N20.0 Calculus of kidney; F17.210 Nicotine dependence, cigarettes, uncomplicated; F17.290 Nicotine dependence, other tobacco product, uncomplicated; Z20.822 Contact with and (suspected) exposure to COVID-19; Z85.51 Personal history of malignant neoplasm of bladder; Z85.528 Personal history of other malignant neoplasm of kidney; Z90.5 Acquired absence of kidney; Z96.652 Presence of left artificial knee joint; Z93.6 Other artificial openings of urinary tract status
CPT/HCPCS: 36415; 71046; 74176; 80048; 80053; 81001; 83605; 83735; 83880; 84484; 85025; 85027; 85610; 85730; 87040; 87086; 87186; 87637; 93005; 96361; 96365; 96375; 96376; 99285; A9270; J0696; J1171; J1644; J7030; J7040

== ENCOUNTER 2025-02-11 08:14 | Outpatient (CLI) | payer MEDICARE, SELFPAY ==
--- NOTE | ~2025-02-11 | CT_ITS ---
EXAMINATION: CT lumbar spine wo con COMPARISON: None HISTORY: Lumbar radiculopathy TECHNIQUE: Axial images were obtained through the spine without IV contrast. Coronal, sagittal reconstruction images were obtained from the axial views. CT scan performed using dose optimization techniques including the following automated exposure control; adjustment of mA and/or kV; use of iterative reconstruction technique. Automatic exposure control was used to reduce radiation dose. Permanent radiation dose record is archived to PACS. FINDINGS: There is a mild levoconvex scoliosis. Grade 1 anterolisthesis of L2 on L3, no acute fracture is identified. Posterior fixation of L3 and L4, the hardware is intact with no lucency around the screws.There is fusion of the disc space at L3-4 with severe loss of disc height at L2-3 and L4-5 with moderate to severe canal and foraminal stenosis. Soft tissues unremarkable. Spinal canal catheter is noted entering spinal canal at T11-T12. Impression: Postsurgical and degenerative changes Reviewed, dictated and finalized at location P. Impression: Postsurgical and degenerative changes
== END 2025-02-11 08:15 | disposition home or self-care (01) ==
LOC: MICIMG 08:15
PROVIDERS: PCP Internal Medicine; Visit Provider Nurse Practitioner Family
DX: M54.16 Radiculopathy, lumbar region (principal)
CPT/HCPCS: 72131